=== PATIENT | male | born 1960 | race Caucasian/White ===

== ENCOUNTER 2018-03-25 19:16 | Inpatient (IN) | END 2018-03-28 14:35 | disposition home or self-care (01) | DRG 69 ==

== ENCOUNTER 2018-11-05 02:31 | Inpatient (IN) | payer MEDICAID, OTHER ==
[2018-11-05] VITALS (48 sets, daily range): BP systolic 93–192; BP diastolic 65–123; PULSE 64–123; RESP 16–27; Ht 157.5 cm; Wt 56.8 kg
[~2018-11-05] VITALS: Ht 157.5 cm; Wt 56.8 kg
[~2018-11-05 02:31] MED LIST: ATOR-2 PO; DOXA4TAB2 PO; ETOMIDATE 20 MG INJ ONE; LINA5TAB PO; ROCURONIUM 50 MG INJ ONE
[2018-11-05] MEDS ORDERED: niCARdipine-NS 0.1MG/ML DRIP 200 ML IV STA (02:47)
[2018-11-05] MEDS ORDERED: SOD CHLORIDE 0.9% 500 ML IV STA (02:47)
--- NOTE | 2018-11-05 02:56 | ERD ---
ER Documentation Chief Complaint Chief Complaint bib family, for n/v and patient has weakness, hx of cva HPI This is a 58-year-old male who has not had a prior stroke in February 2018 affecting his left hand. The patient works as a burglar alarm mechanic and he was in the shop with 2 other guys, they had been drinking alcohol, he drinks alcohol daily,. The friend said the patient suddenly fell to the ground and was complaining of weakness. He did not lose consciousness or have a seizure. His friends helped him to the bathroom for him to have a bowel movement. He states is been constipated for the past 8 days. He says that he has some visual disturbance in his left eye, with some difficulty talking, and his left side is paralyzed. He also complains of a diffuse headache. 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 Allergies Allergies: Coded Allergies: No Known Allergy (Unverified , 11/05/18) FmHx Family History: No coronary disease Physical Exam Vitals Vital Signs Date Temp Pulse Resp B/P (MAP) Pulse Ox O2 O2 Flow FiO2 Time Delivery Rate 11/05/18 98.1 91 19 262/154 96 02:42 (190) Physical Exam Const: Well-developed, well-nourished Head: Atraumatic, normocephalic Eyes: Normal Conjunctiva, PERRLA, EOMI, normal sclera, no nystagmus ENT: Normal External Ears, Nose and Mouth, moist mucus membranes. Neck: Full range of motion. No meningismus, no lymphadenopathy. Resp: Clear to auscultation bilaterally, no wheezing, rhonchi, rales Cardio: Regular rate and rhythm, no murmurs, S1 S2 present Abd: Soft, non tender x 4, non distended. Normal bowel sounds, no guarding or rebound, no pulsitile abdominal masses or bruits Skin: No petechiae or rashes, no ecchymosis , no maculopapular rash Back: No midline or flank tenderness Ext: No cyanosis, or edema, FROM x 4, normal inspection, neurovascularly intact x 4 Neur: [Awake and alert, right-sided strength is 5 out of 5, the left lower extremity has strength of 0 out of 5, the left upper extremity strength is a 1-2 out of 5 sensation intact x 4, Psych: Normal Mood and Affect Result Diagram: 11/05/18 0250 11/05/18 0250 Results 24 hrs Laboratory Tests Test 11/05/18 02:50 White Blood Count 6.8 10^3/ul Red Blood Count 3.79 10^6/ul Hemoglobin 12.4 g/dl Hematocrit 35.0 % Mean Corpuscular Volume 92.3 fl Mean Corpuscular Hemoglobin 32.7 pg Mean Corpuscular Hemoglobin Concent 35.4 g/dl Red Cell Distribution Width 12.7 % Platelet Count 222 10^3/UL Mean Platelet Volume 10.4 fl Immature Granulocytes % 0.100 % Neutrophils % 49.4 % Lymphocytes % 36.1 % Monocytes % 6.6 % Eosinophils % 6.3 % Basophils % 1.5 % Nucleated Red Blood Cells % 0.0 /100WBC Immature Granulocytes # 0.010 10^3/ul Neutrophils # 3.4 10^3/ul Lymphocytes # 2.5 10^3/ul Monocytes # 0.5 10^3/ul Eosinophils # 0.4 10^3/ul Basophils # 0.1 10^3/ul Nucleated Red Blood Cells # 0.0 10^3/ul Prothrombin Time 11.9 Sec Prothrombin Time Ratio 0.9 INR International Normalized Ratio 0.87 Activated Partial Thromboplast Time 27.9 Sec Sodium Level 140 mmol/L Potassium Level 3.7 mmol/L Chloride Level 106 mmol/L Carbon Dioxide Level 25 mmol/L Anion Gap 9 Blood Urea Nitrogen 37 mg/dl Creatinine 2.91 mg/dl Est Glomerular Filtrat Rate mL/min 22 mL/min Glucose Level 208 mg/dl Hemoglobin A1c 7.1 % Calcium Level 9.0 mg/dl Creatine Kinase 290 IU/L Creatine Kinase Index Pending Creatinine Kinase MB (Mass) Pending Troponin I Pending Triglycerides Level 129 mg/dl Cholesterol Level 235 mg/dl LDL Cholesterol, Calculated 126 mg/dl HDL Cholesterol 83 mg/dl Cholesterol/HDL Ratio 2.8 RATIO Ethyl Alcohol Level < 10.0 mg/dl Current Medications Medications Dose Sig/Janice Start Time Status Last (Trade) Ordered Route PRN Stop Time Admin Dose Reason Admin Sodium 500 ml @ Q1H STAT 11/05/18 Chloride 500 mls/hr IV 02:47 11/05/18 03:46 Nicardipine 200 ml @ ONCE STAT 11/05/18 HCl 50 mls/hr IV 02:47 11/05/18 06:46 Ondansetron 4 mg ONCE ONCE 11/05/18 DC HCl (Zofran IV 03:10 Inj) 11/05/18 03:11 Sodium 100 ml @ ud STK-MED 11/05/18 DC 11/05/18 Chloride ONCE .ROUTE 03: 03:21 11/05/18 03:20 Iohexol 150 ml STK-MED 11/05/18 DC 11/05/18 (Omnipaque ONCE .ROUTE 03: 03:21 300mg/ ml) 11/05/18 03:20 Procedures/MDM Radiologist called me and he has a right thalamic bleed with extension into the intraventricular space that is 3.1 x 3.8 x 3.0 cm. There is early hydrocephalus. No herniation, there is a few millimeters of shift. When the patient returned from CAT scan his mental status was worse and he was having some vomiting. I discussed the case with the family and I told him I was going to intubate him. Endotracheal Intubation by me: Pre assessment performed. See preceding note for details. Pre-oxygenation performed with 100% oxygen RSI: Performed w/o complication or hypoxic events. Medications as ordered. Blade: MAC for ET Tube: 7.5 cm Depth: 22 cm at the lip Intubation confirmed by colorimetric CO2, equal breath sounds, quiet over the stomach. 0330 Spoke with , who reviewed the CT scan he is going to come in place a ventriculostomy shunt Critical Care Time: 40 minutes Treatments/Evaluations: Close monitoring and treatment of unstable vital signs, cardiorespiratory, and neurologic status, while maintaining tight balance of fluid, respiratory, and cardiac interventions. This time includes discussing the case with the patient and the patient's family. This time does not include all procedures stated elsewhere in this record. This time also includes reviewing old records, labs and radiological studies. This time includes examining and re-examining the patient. Additionally, this time also includes arranging care with admitting and consulting physicians. Departure Diagnosis: Primary Impression: Intracranial hemorrhage Additional Impression: Hypertensive crisis Condition: Stable APOLINAR ROJAS DO November 05, 2018 02:56
[2018-11-05] MEDS ORDERED: ONDANSETRON 4 MG INJ IV ONE (03:10)
[2018-11-05] MEDS ORDERED: SOD CHLORIDE 0.9% 100 ML ONE (03:19)
[2018-11-05] MEDS ORDERED: IOHEXOL 300MG/ML 150 ML BTL ONE (03:19)
[2018-11-05] MEDS ORDERED: SOD CHLORIDE 0.9% 1,000 ML IV SCH (03:48)
[2018-11-05] MEDS ORDERED: ACETAMINOPHEN 325 MG TAB PO PRN (04:00)
[2018-11-05] MEDS ORDERED: ONDANSETRON 4 MG INJ IV PRN ×3 (04:00→12:30)
--- NOTE | 2018-11-05 05:05 | CONS ---
Assessment/Plan Assessment/Plan Assessment/Plan (Daily) Diagnoses: 1) Intracerebral hemorrhage 2) Intraventricular hemorrhage 3) Obstructive hydrocephalus 4) Brain herniation 58 year old male with hypertensive ICH/IVH and a massive bleed. It is unlikely h milvia will recover from this, but given his hydrocephalus and young age, I elected to place a ventriculostomy emergently. Please see dictated procedure note. These findings were discussed in detail with the patient's family, who expressed understanding. Plan - Admit ICU - Keep EVD at 5 cm H20 - Ancef while drain in place - SBP 120-160 - HOB 30 degrees Consultation Date/Type/Reason Admit Date/Time Date of Consultation: November 05, 2018 Type of Consult Neurosurgery Reason for Consultation Intracerebral hemorrhage, Intraventricular hemorrhage, Obstructive hydrocephalus Date/Time of Note DATE: 11/05/18 TIME: 04:55 Hx of Present Illness Mr. Danielle is a 58 year old male with history of HTN who came into the ED with assistance and was found to lose consciousness in the waiting room. He was brought back and had an emergent intubation and CT of the head, which revealed a 5 cm thalamic hemorrhage with intraventricular hemorrhage and hydrocephalus. He is non-responsive. Past Medical History Medications Current Medications Nicardipine HCl 200 ml @ 50 mls/hr ONCE STAT IV Last administered on 04/16at 03:15; Admin Dose 50 MLS/HR; Start 11/05/18 at 02:47; Stop 11/05/18 at 06:46 Sodium Chloride 1,000 ml @ 80 mls/hr [id number] IV Last administered on 11/05/18at 03:30; Admin Dose 80 MLS/HR; Start 11/05/18 at 03:48; Stop 11/05/18 at 16:17 Ondansetron HCl (Zofran Inj) 4 mg BRIDGE ORDER PRN IV NAUSEA/VOMITING; Start 11/05/18 at 04:00; Stop 11/06/18 at 03:59 Acetaminophen (Tylenol Tab) 650 mg ER BRIDGE PRN PO .MILD PAIN 1-3 OR TEMP; Start 11/05/18 at 04:00; Stop 11/06/18 at 03:59 Ondansetron HCl (Zofran Inj) 4 mg Q6H PRN IV NAUSEA AND/OR VOMITING; Start 11/05/18 at 05:00; Status UNV Morphine Sulfate (morphine) 2 mg Q4H PRN IV PAIN LEVEL 7-10; Start 11/05/18 at 05:00; Status UNV Pantoprazole (Protonix Iv) 40 mg DAILY@06 IV ; Start 11/05/18 at 06:00; Status UNV Allergies: Coded Allergies: No Known Allergy (Unverified , 11/05/18) Social History Smoking Status: Current every day smoker Exam/Review of Systems Exam Vitals Vital Signs Date Temp Pulse Resp B/P (MAP) Pulse Ox O2 O2 Flow FiO2 Time Delivery Rate 11/05/18 102 16 165/95 100 Mechanical 03:58 (118) Ventilator 11/05/18 98.1 03:30 11/05/18 15.0 03:21 Exam Intubated, non-sedated Left pupil fixed/dilated, right pupil 3 minimally reactive No movement Results Result Diagram: 11/05/18 0250 11/05/18 0250 Results 24hrs Laboratory Tests Test 11/05/18 02:50 White Blood Count 6.8 Red Blood Count 3.79 L Hemoglobin 12.4 L Hematocrit 35.0 L Mean Corpuscular Volume 92.3 Mean Corpuscular Hemoglobin 32.7 Mean Corpuscular Hemoglobin Concent 35.4 Red Cell Distribution Width 12.7 Platelet Count 222 Mean Platelet Volume 10.4 Immature Granulocytes % 0.100 Neutrophils % 49.4 Lymphocytes % 36.1 Monocytes % 6.6 Eosinophils % 6.3 Basophils % 1.5 Nucleated Red Blood Cells % 0.0 Immature Granulocytes # 0.010 Neutrophils # 3.4 Lymphocytes # 2.5 Monocytes # 0.5 Eosinophils # 0.4 Basophils # 0.1 Nucleated Red Blood Cells # 0.0 Prothrombin Time 11.9 Prothrombin Time Ratio 0.9 INR International Normalized Ratio 0.87 Activated Partial Thromboplast Time 27.9 Sodium Level 140 Potassium Level 3.7 Chloride Level 106 Carbon Dioxide Level 25 Anion Gap 9 Blood Urea Nitrogen 37 H Creatinine 2.91 H Est Glomerular Filtrat Rate mL/min 22 L Glucose Level 208 Hemoglobin A1c 7.1 H Calcium Level 9.0 Creatine Kinase 290 H Creatine Kinase Index 1.9 Creatinine Kinase MB (Mass) 5.53 H Troponin I 0.079 Triglycerides Level 129 Cholesterol Level 235 H LDL Cholesterol, Calculated 126 HDL Cholesterol 83 H Cholesterol/HDL Ratio 2.8 Ethyl Alcohol Level < 10.0 H Imaging Imaging 5cm right thalamic hemorrhage with casted lateral, third and 4th ventricles. CTA revealed no underlying vascular abnormality. Medications Medication Current Medications Nicardipine HCl 200 ml @ 50 mls/hr ONCE STAT IV Last administered on 11/05/18at 03:15; Admin Dose 50 MLS/HR; Start 11/05/18 at 02:47; Stop 11/05/18 at 06:46 Sodium Chloride 1,000 ml @ 80 mls/hr [id number] IV Last administered on 11/05/18at 03:30; Admin Dose 80 MLS/HR; Start 11/05/18 at 03:48; Stop 11/05/18 at 16:17 Ondansetron HCl (Zofran Inj) 4 mg BRIDGE ORDER PRN IV NAUSEA/VOMITING; Start 04/16 at 04:00; Stop 11/06/18 at 03:59 Acetaminophen (Tylenol Tab) 650 mg ER BRIDGE PRN PO .MILD PAIN 1-3 OR TEMP; Start 11/05/18 at 04:00; Stop 11/06/18 at 03:59 Ondansetron HCl (Zofran Inj) 4 mg Q6H PRN IV NAUSEA AND/OR VOMITING; Start 11/05/18 at 05:00; Status UNV Morphine Sulfate (morphine) 2 mg Q4H PRN IV PAIN LEVEL 7-10; Start 11/05/18 at 05:00; Status UNV Pantoprazole (Protonix Iv) 40 mg DAILY@06 IV ; Start 11/05/18 at 06:00; Status UNV LATANYA CONNELL MD November 05, 2018 05:05
--- NOTE | 2018-11-05 05:14 | OPR ---
Date/Time of Note Date/Time of Note DATE: 11/05/18 TIME: 05:05 Operative Report Procedure Date: November 05, 2018 Preoperative Diagnosis 1) Hypertensive intracerebral hemorrhage 2) Intraventricular hemorrhage 3) Obstructive hydrocephalus 4) Brain Herniation Postoperative Diagnosis 1) Hypertensive intracerebral hemorrhage 2) Intraventricular hemorrhage 3) Obstructive hydrocephalus 4) Brain Herniation Operation/Procedure Performed Left frontal ventriculostomy placement (twist drill) Surgeon Vladimir Connell MD Screw Machine Operator None Anesthesia Type: other (None) Estimated Blood Loss: minimal Transfusion none Specimen None Grafts/Implants none Tubes/Drains Left frontal ventriculostomy Complications none Pt Condition Post Procedure: critical Disposition: other (ICU) Indications Mr. Danielle ia a 58 year-old male with a massive hypertensive thalamic intracerebral hemorrhage. He had intraventricular hemorrhage with casting of the right lateral ventricle, the third ventricle and the fourth ventricle. This ca used mild obstructive hydrocephalus and brain herniation. His clinical exam was poor, however he was indicated for a ventriculostomy placement. Due to casted IVH involving the right side, I elected to place this on the left. His family was consented as to the risks/benefits of the procedure and elected to proceed. Procedure Description The area of left Mel's point was shaved and prepped and draped in the usual sterile fashion. A 1.5 cm incision was made using a #15 blade and carried down to the periosteum. A self-retaining retractor was placed. The twist drill was used to access the intracranial space. The dura was pierced with a needle. The ventriculostomy catheter was placed with one pass to a depth of 5 cm at the brain surface and was soft passed 2 more cm without difficulty. Bloody cerebrospinal fluid under moderate pressure was noted. This was tunneled > 4 cm from the incision and was secured at the skin using a 4-0 nylon stitch. The incision was closed with darby and the drain was secured with darby. A sterile dressing was applied and the drain was connected to the Vigil bag at a level of 5cm H20. There were no complaints. VLADIMIR CONNELL MD November 05, 2018 05:14
[2018-11-05] MEDS ORDERED: FENTAnyl 50 MCG/ML VIAL IV ONE (05:30)
[2018-11-05] MEDS ORDERED: FENTAnyl (DRIP) 1000 mcg/100mL 100 ML IV ONE (05:30)
[2018-11-05] MEDS ORDERED: CEFAZOLIN 1 GM/50 ML (PMX) 50 ML IVPB ONE (05:30)
[2018-11-05] MEDS ORDERED: PANTOPRAZOLE 40 MG INJ IV SCH (06:00)
[2018-11-05] MEDS ORDERED: ALTEPLASE (CATHFLO) 2 MG INJ CATHETER ONE (06:00)
[2018-11-05] MEDS ORDERED: LIDOCAINE 1% (MPF) 5 ML VIAL SC ONE (06:00)
--- NOTE | 2018-11-05 07:02 | HP ---
Date/Time of Note Date/Time of Note DATE: 11/05/18 TIME: 06:50 Assessment/Plan VTE Prophylaxis SCD applied (from Nsg): Yes Pharmacological prophylaxis: NA/contraindicated Pharm contraindication: bleeding Lines/Catheters IV Catheter Type (from Nrsg): Saline Lock Assessment/Plan Assessment/Plan 1. Massive intraparenchymal hemorrhage with obstructive hydrocephalus and brain herniation, secondary to hypertensive crisis: -Status post placement of a left APPLICATIONS INSTRUCTOR shunt -ICU monitoring -Goal SBP 120-150 -Ancef -Neurosurgery on board -Patient with likely poor prognosis 2. Hypertensive emergency: Patient presented with a blood pressure of 262/154: See #1 3. History of CVA with left-sided deficit: Again patient presented with acutely worsening left-sided weakness and vomiting. See #1 4. Vent dependent: Respiratory to manage 5. History of cocaine abuse Result Diagram: 11/05/18 0250 11/05/18 0250 Results 24hrs Laboratory Tests Test 11/05/18 02:50 11/05/18 05:05 White Blood Count 6.8 Red Blood Count 3.79 L Hemoglobin 12.4 L Hematocrit 35.0 L Mean Corpuscular Volume 92.3 Mean Corpuscular Hemoglobin 32.7 Mean Corpuscular Hemoglobin Concent 35.4 Red Cell Distribution Width 12.7 Platelet Count 222 Mean Platelet Volume 10.4 Immature Granulocytes % 0.100 Neutrophils % 49.4 Lymphocytes % 36.1 Monocytes % 6.6 Eosinophils % 6.3 Basophils % 1.5 Nucleated Red Blood Cells % 0.0 Immature Granulocytes # 0.010 Neutrophils # 3.4 Lymphocytes # 2.5 Monocytes # 0.5 Eosinophils # 0.4 Basophils # 0.1 Nucleated Red Blood Cells # 0.0 Prothrombin Time 11.9 Prothrombin Time Ratio 0.9 INR International Normalized Ratio 0.87 Activated Partial Thromboplast Time 27.9 Sodium Level 140 Potassium Level 3.7 Chloride Level 106 Carbon Dioxide Level 25 Anion Gap 9 Blood Urea Nitrogen 37 H Creatinine 2.91 H Est Glomerular Filtrat Rate mL/min 22 L Glucose Level 208 Hemoglobin A1c 7.1 H Calcium Level 9.0 Creatine Kinase 290 H Creatine Kinase Index 1.9 Creatinine Kinase MB (Mass) 5.53 H Troponin I 0.079 Triglycerides Level 129 Cholesterol Level 235 H LDL Cholesterol, Calculated 126 HDL Cholesterol 83 H Cholesterol/HDL Ratio 2.8 Ethyl Alcohol Level < 10.0 H Blood Gas Specimen Source Blood arterial Arterial Blood Date Drawn 11/05/2018 5:10:42 AM Arterial Blood pH (Temp corrected) 7.331 L Arterial Blood pCO2 (Temp correct) 43.9 Arterial Blood pO2 (Temp corrected) 192.9 H Arterial Blood HCO3 22.7 Arterial Blood Base Excess -3.2 L Arterial Blood Oxygen Saturation 98.8 H Mati Test ACCEPTAB Arterial Blood Gas Puncture Site Right Radial Arterial Blood Carboxyhemoglobin 0.7 Arterial Blood Methemoglobin 0.3 Blood Gas A-a O2 Differential 476.2 H Oxyhemoglobin Percent 97.8 Blood Gas Temperature 37.0 Blood Gas Respiration Rate 16.0 Blood Gas Actual Respiration Rate 22 Blood Gas Modality VENT - AC FiO2 100.0 Blood Gas Tidal Volume 500.0 Blood Gas Low PEEP Setting 5.0 Blood Gas Notified Whom AA Blood Gas Notified Time 11/05/2018 5:22:52 AM HPI/ROS Admit Date/Time Admit Date/Time Hx of Present Illness This is a 58-year-old male with a history of hypertension, CVA with left-sided deficit, cocaine abuse who was brought to the ER for worsening left-sided weakness and intractable vomiting. Patient had an acute onset significantly worsening of left-sided weakness and vomiting. When he presented to the ER, blood pressure was 262/154. Head CT shows intracerebral and intraventricular hemorrhage, brain herniation and obstructive hydrocephalus. Patient was taken to the OR and now is status post placement of a left APPLICATIONS INSTRUCTOR shunt. Of note in the ER, CT Angio of the head and neck showed 50 to 70% left vertebral artery stenosis and a bilateral cavernous and supraclinoid internal carotid with moderate to severe flow-limiting stenosis. PMH/Family/Social Past Medical History Medical History: other (See HPI) Medications Current Medications Sodium Chloride 1,000 ml @ 80 mls/hr [id number] IV Last administered on 11/05/18at 03:30; Admin Dose 80 MLS/HR; Start 11/05/18 at 03:48; Stop 11/05/18 at 16:17 Ondansetron HCl (Zofran Inj) 4 mg BRIDGE ORDER PRN IV NAUSEA/VOMITING; Start 11/05/18 at 04:00; Stop 11/06/18 at 03:59 Acetaminophen (Tylenol Tab) 650 mg ER BRIDGE PRN PO .MILD PAIN 1-3 OR TEMP; Start 11/05/18 at 04:00; Stop 11/06/18 at 03:59 Ondansetron HCl (Zofran Inj) 4 mg Q6H PRN IV NAUSEA AND/OR VOMITING; Start 11/05/18 at 05:00 Morphine Sulfate (morphine) 2 mg Q4H PRN IV PAIN LEVEL 7-10; Start 11/05/18 at 05:00 Famotidine (Pepcid Iv) 20 mg DAILY IV ; Start 11/05/18 at 09:00 Fentanyl 100 ml @ 2.5 mls/hr TITRATE ONCE IV Last administered on 11/05/18at 05:51; Admin Dose 2.5 MLS/HR; Start 11/05/18 at 05:30; Stop 11/06/18 at 21:29 Coded Allergies: No Known Allergy (Unverified , 11/05/18) Past Surgical History Past Surgical Hx: other (See HPI) Family History Significant Family History: no pertinent family hx Social History Alcohol Use: other Smoking Status: Current every day smoker Drug Use: cocaine Exam/Review of Systems Vital Signs Vitals Vital Signs Date Temp Pulse Resp B/P (MAP) Pulse Ox O2 O2 Flow FiO2 Time Delivery Rate 11/05/18 65 20 100/54 97 Mechanical 06:02 (69) Ventilator 11/05/18 70 05:28 11/05/18 98.1 03:30 11/05/18 15.0 03:21 Exam Constitutional: other (Intubated, patient restless) Respiratory: clear to auscultation, normal air movement Cardiovascular: regular rate and rhythm, nl pulses Gastrointestinal: soft Extremities: normal pulses MARCIANO CANAS MD November 05, 2018 07:01
[2018-11-05] MEDS ORDERED: MIDAZOLAM (DRIP) 50 mg/50 mL 50 ML IV SCH (08:30)
--- NOTE | 2018-11-05 09:18 | CONS ---
Assessment/Plan Assessment/Plan Assessment/Plan (Daily) Status post massive intracerebral hemorrhage Shunt has been placed by neurosurgery Presumably hypertensive crisis Presumably secondary to illicit drug use however patient's drug screen is negative however he has a history of cocaine and other illicit drug use Drug screen may be unreliable if patient was smoking or shooting drugs as compared to snorting. Half-life of cocaine and crystal methamphetamines approximately 1 week metabolites of snorting crystal methamphetamine may be longer. Hypertensive crisis On nicardipine drip Patient sedated at this time Prognosis unknown at this time. I have brought to daughter is up-to-date with information that we do know I did not give them a prognosis. Consultation Date/Type/Reason Admit Date/Time Date/Time of Note DATE: 11/05/18 TIME: 09:14 Hx of Present Illness Chart removed patient examined patient is status post massive intraparenchymal hemorrhage with obstructive hydrocephalus and brain herniation secondary to hypertensive crisis. Patient was seen by neurosurgery in the left frontal ventriculostomy was placed. We do not have much past medical history 2 d aughters at the bedside they seem resigned to the fact that something catastrophic with happen to their father based on his lifestyle. It is known the patient was homeless past medical history of drug abuse. The 2 daughters make all the decisions on his behalf is from patient but there is one other sibling involved. There is no advanced healthcare or polst form . Unable to obtain she is intubated and sedated Past Medical History Medical History: other (See HPI) Medications Current Medications Sodium Chloride 1,000 ml @ 80 mls/hr [id number] IV Last administered on 11/05/18at 03:30; Admin Dose 80 MLS/HR; Start 11/05/18 at 03:48; Stop 11/05/18 at 16:17 Ondansetron HCl (Zofran Inj) 4 mg BRIDGE ORDER PRN IV NAUSEA/VOMITING; Start 11/05/18 at 04:00; Stop 11/06/18 at 03:59 Acetaminophen (Tylenol Tab) 650 mg ER BRIDGE PRN PO .MILD PAIN 1-3 OR TEMP; Start 11/05/18 at 04:00; Stop 11/06/18 at 03:59 Ondansetron HCl (Zofran Inj) 4 mg Q6H PRN IV NAUSEA AND/OR VOMITING; Start 11/05/18 at 05:00 Morphine Sulfate (morphine) 2 mg Q4H PRN IV PAIN LEVEL 7-10; Start 11/05/18 at 05:00 Famotidine (Pepcid Iv) 20 mg DAILY IV ; Start 11/05/18 at 09:00 Fentanyl 100 ml @ 2.5 mls/hr TITRATE ONCE IV Last administered on 11/05/18at 05:51; Admin Dose 2.5 MLS/HR; Start 11/05/18 at 05:30; Stop 11/06/18 at 21:29 Midazolam HCl 50 ml @ 1 mls/hr TITRATE IV ; Start 11/05/18 at 08:30 Allergies: Coded Allergies: No Known Allergy (Unverified , 11/05/18) Past Surgical History Past Surgical Hx: other (See HPI) Social History Alcohol Use: other Smoking Status: Current every day smoker Drug Use: cocaine Exam/Review of Systems Exam Vitals Vital Signs Date Temp Pulse Resp B/P (MAP) Pulse Ox O2 O2 Flow FiO2 Time Delivery Rate 11/05/18 65 08:00 11/05/18 16 96 50 07:55 11/05/18 137/82 Mechanical 07:00 (100) Ventilator 11/05/18 98.1 03:30 11/05/18 15.0 03:21 Constitutional: other (Sedated nonresponsive,) Head: other (Left lateral shunt) Eyes: other (Left eye trauma versus cataract white nontransparent cornea right eye pupils equally round and reactive to light) Neck: supple, non-tender Respiratory: clear to auscultation, normal air movement Cardiovascular: regular rate and rhythm, nl pulses Extremities: other; No normal pulses, No calf tenderness, No cyanosis, No clubbing, No edema, No pitting pedal edema, No palpable cord, No tenderness Results Result Diagram: 11/05/18 0250 11/05/18 0250 Results 24hrs Laboratory Tests Test 11/05/18 02:50 11/05/18 05:05 White Blood Count 6.8 Red Blood Count 3.79 L Hemoglobin 12.4 L Hematocrit 35.0 L Mean Corpuscular Volume 92.3 Mean Corpuscular Hemoglobin 32.7 Mean Corpuscular Hemoglobin Concent 35.4 Red Cell Distribution Width 12.7 Platelet Count 222 Mean Platelet Volume 10.4 Immature Granulocytes % 0.100 Neutrophils % 49.4 Lymphocytes % 36.1 Monocytes % 6.6 Eosinophils % 6.3 Basophils % 1.5 Nucleated Red Blood Cells % 0.0 Immature Granulocytes # 0.010 Neutrophils # 3.4 Lymphocytes # 2.5 Monocytes # 0.5 Eosinophils # 0.4 Basophils # 0.1 Nucleated Red Blood Cells # 0.0 Prothrombin Time 11.9 Prothrombin Time Ratio 0.9 INR International Normalized Ratio 0.87 Activated Partial Thromboplast Time 27.9 Sodium Level 140 Potassium Level 3.7 Chloride Level 106 Carbon Dioxide Level 25 Anion Gap 9 Blood Urea Nitrogen 37 H Creatinine 2.91 H Est Glomerular Filtrat Rate mL/min 22 L Glucose Level 208 Hemoglobin A1c 7.1 H Calcium Level 9.0 Creatine Kinase 290 H Creatine Kinase Index 1.9 Creatinine Kinase MB (Mass) 5.53 H Troponin I 0.079 Triglycerides Level 129 Cholesterol Level 235 H LDL Cholesterol, Calculated 126 HDL Cholesterol 83 H Cholesterol/HDL Ratio 2.8 Ethyl Alcohol Level < 10.0 H Blood Gas Specimen Source Blood arterial Arterial Blood Date Drawn 11/05/2018 5:10:42 AM Arterial Blood pH (Temp corrected) 7.331 L Arterial Blood pCO2 (Temp correct) 43.9 Arterial Blood pO2 (Temp corrected) 192.9 H Arterial Blood HCO3 22.7 Arterial Blood Base Excess -3.2 L Arterial Blood Oxygen Saturation 98.8 H Mati Test ACCEPTAB Arterial Blood Gas Puncture Site Right Radial Arterial Blood Carboxyhemoglobin 0.7 Arterial Blood Methemoglobin 0.3 Blood Gas A-a O2 Differential 476.2 H Oxyhemoglobin Percent 97.8 Blood Gas Temperature 37.0 Blood Gas Respiration Rate 16.0 Blood Gas Actual Respiration Rate 22 Blood Gas Modality VENT - AC FiO2 100.0 Blood Gas Tidal Volume 500.0 Blood Gas Low PEEP Setting 5.0 Blood Gas Notified Whom AA Blood Gas Notified Time 11/05/2018 5:22:52 AM Medications Medication Current Medications Sodium Chloride 1,000 ml @ 80 mls/hr [id number] IV Last administered on 11/05/18at 03:30; Admin Dose 80 MLS/HR; Start 11/05/18 at 03:48; Stop 11/05/18 at 16:17 Ondansetron HCl (Zofran Inj) 4 mg BRIDGE ORDER PRN IV NAUSEA/VOMITING; Start 11/05/18 at 04:00; Stop 11/06/18 at 03:59 Acetaminophen (Tylenol Tab) 650 mg ER BRIDGE PRN PO .MILD PAIN 1-3 OR TEMP; Start 11/05/18 at 04:00; Stop 11/06/18 at 03:59 Ondansetron HCl (Zofran Inj) 4 mg Q6H PRN IV NAUSEA AND/OR VOMITING; Start 11/05/18 at 05:00 Morphine Sulfate (morphine) 2 mg Q4H PRN IV PAIN LEVEL 7-10; Start 11/05/18 at 05:00 Famotidine (Pepcid Iv) 20 mg DAILY IV ; Start 11/05/18 at 09:00 Fentanyl 100 ml @ 2.5 mls/hr TITRATE ONCE IV Last administered on 11/05/18at 05:51; Admin Dose 2.5 MLS/HR; Start 11/05/18 at 05:30; Stop 11/06/18 at 21:29 Midazolam HCl 50 ml @ 1 mls/hr TITRATE IV ; Start 11/05/18 at 08:30 SHIRLEY WATERS November 05, 2018 09:18
[2018-11-05] MEDS: FAMOTIDINE 20 MG INJ IV SCH (09:47)
[2018-11-05] MEDS ORDERED: niCARdipine-NS 0.1MG/ML DRIP 200 ML IV SCH (11:00)
--- NOTE | 2018-11-05 12:02 | PN ---
Date/Time of Note Date/Time of Note DATE: 11/05/18 TIME: 12:00 Assessment/Plan VTE Prophylaxis SCD applied (from Nsg): Yes SCD contraindicated: low risk/ambulating Pharmacological prophylaxis: NA/contraindicated Pharm contraindication: bleeding Lines/Catheters IV Catheter Type (from Nrsg): Saline Lock Assessment/Plan Hospital Course Assessment plan 1. Acute intracranial/intervertebral intraparenchymal hemorrhage, poor prognosis continue supportive care status post LIME SLAKER shunt 2. Hypertensive emergency 3. Cocaine abuse 4. Tobacco abuse 5. Medication nonadherence 6. Acute respiratory failure hypoxic continue vent 7. Failure to thrive 8. Diabetes 10. Acute renal failure? CKD stage III-IV 11. Dyslipidemia not at goal 12. Struct of hydrocephalus 13. BPH history of TIA S: Events noted patient remains vent dependent with elevated blood pressure. Family at bedside updated. Seizures. O: Sinus with elevated blood pressure Physical exam No pallor droop. Sluggish right pupil may be 3 mm. Left with cataract? Regular no murmur rub gallop Clear Benign no abdominal bruits Babinski's on right and left and neutral Result Diagram: 11/05/18 0250 11/05/18 0250 Results 24hrs Laboratory Tests Test 11/05/18 02:50 11/05/18 05:05 11/05/18 10:00 White Blood Count 6.8 Red Blood Count 3.79 L Hemoglobin 12.4 L Hematocrit 35.0 L Mean Corpuscular Volume 92.3 Mean Corpuscular Hemoglobin 32.7 Mean Corpuscular 35.4 Hemoglobin Concent Red Cell Distribution Width 12.7 Platelet Count 222 Mean Platelet Volume 10.4 Immature Granulocytes % 0.100 Neutrophils % 49.4 Lymphocytes % 36.1 Monocytes % 6.6 Eosinophils % 6.3 Basophils % 1.5 Nucleated Red Blood Cells % 0.0 Immature Granulocytes # 0.010 Neutrophils # 3.4 Lymphocytes # 2.5 Monocytes # 0.5 Eosinophils # 0.4 Basophils # 0.1 Nucleated Red Blood Cells # 0.0 Prothrombin Time 11.9 Prothrombin Time Ratio 0.9 INR International 0.87 Normalized Ratio Activated 27.9 Partial Thromboplast Time Sodium Level 140 Potassium Level 3.7 Chloride Level 106 Carbon Dioxide Level 25 Anion Gap 9 Blood Urea Nitrogen 37 H Creatinine 2.91 H Est Glomerular Filtrat 22 L Rate mL/min Glucose Level 208 Hemoglobin A1c 7.1 H Calcium Level 9.0 Creatine Kinase 290 H Creatine Kinase Index 1.9 Creatinine Kinase MB (Mass) 5.53 H Troponin I 0.079 Triglycerides Level 129 Cholesterol Level 235 H LDL Cholesterol, Calculated 126 HDL Cholesterol 83 H Cholesterol/HDL Ratio 2.8 Ethyl Alcohol Level < 10.0 H Blood Gas Specimen Source Blood arterial Arterial Blood Date Drawn 11/05/2018 5:10:42 AM Arterial Blood pH 7.331 L (Temp corrected) Arterial Blood pCO2 43.9 (Temp correct) Arterial Blood pO2 192.9 H (Temp corrected) Arterial Blood HCO3 22.7 Arterial Blood Base Excess -3.2 L Arterial Blood 98.8 H Oxygen Saturation Mati Test ACCEPTAB Arterial Blood Gas Right Radial Puncture Site Arterial 0.7 Blood Carboxyhemoglobin Arterial Blood Methemoglobin 0.3 Blood Gas A-a O2 476.2 H Differential Oxyhemoglobin Percent 97.8 Blood Gas Temperature 37.0 Blood Gas Respiration Rate 16.0 Blood Gas Actual 22 Respiration Rate Blood Gas Modality VENT - AC FiO2 100.0 Blood Gas Tidal Volume 500.0 Blood Gas Low PEEP Setting 5.0 Blood Gas Notified Whom AA Blood Gas Notified Time 11/05/2018 5:22:52 AM Urine Color YELLOW Urine Clarity CLEAR Urine pH 5.0 Urine Specific [place] 1.042 H Urine Ketones TRACE A Urine Nitrite NEGATIVE Urine Bilirubin NEGATIVE Urine Urobilinogen NEGATIVE Urine Leukocyte Esterase NEGATIVE Urine Microscopic RBC 10 H Urine Microscopic WBC 2 Urine Hemoglobin 2+ H Urine Glucose 2+ H Urine Total Protein 2+ H Urine Opiates Screen Negative Urine Barbiturates Negative Urine Amphetamines Screen Negative Urine Benzodiazepines Screen Negative Urine Cocaine Screen Positive Urine Cannabinoids Negative Exam/Review of Systems Exam Vitals Vital Signs Date Temp Pulse Resp B/P (MAP) Pulse Ox O2 O2 Flow FiO2 Time Delivery Rate 11/05/18 83 16 95 50 11:39 11/05/18 140/92 11:30 (108) 11/05/18 Mechanical 11:00 Ventilator 11/05/18 97.5 08:00 11/05/18 15.0 03:21 Results Results 24hrs Laboratory Tests Test 11/05/18 02:50 11/05/18 05:05 11/05/18 10:00 White Blood Count 6.8 Red Blood Count 3.79 L Hemoglobin 12.4 L Hematocrit 35.0 L Mean Corpuscular Volume 92.3 Mean Corpuscular Hemoglobin 32.7 Mean Corpuscular 35.4 Hemoglobin Concent Red Cell Distribution Width 12.7 Platelet Count 222 Mean Platelet Volume 10.4 Immature Granulocytes % 0.100 Neutrophils % 49.4 Lymphocytes % 36.1 Monocytes % 6.6 Eosinophils % 6.3 Basophils % 1.5 Nucleated Red Blood Cells % 0.0 Immature Granulocytes # 0.010 Neutrophils # 3.4 Lymphocytes # 2.5 Monocytes # 0.5 Eosinophils # 0.4 Basophils # 0.1 Nucleated Red Blood Cells # 0.0 Prothrombin Time 11.9 Prothrombin Time Ratio 0.9 INR International 0.87 Normalized Ratio Activated 27.9 Partial Thromboplast Time Sodium Level 140 Potassium Level 3.7 Chloride Level 106 Carbon Dioxide Level 25 Anion Gap 9 Blood Urea Nitrogen 37 H Creatinine 2.91 H Est Glomerular Filtrat 22 L Rate mL/min Glucose Level 208 Hemoglobin A1c 7.1 H Calcium Level 9.0 Creatine Kinase 290 H Creatine Kinase Index 1.9 Creatinine Kinase MB (Mass) 5.53 H Troponin I 0.079 Triglycerides Level 129 Cholesterol Level 235 H LDL Cholesterol, Calculated 126 HDL Cholesterol 83 H Cholesterol/HDL Ratio 2.8 Ethyl Alcohol Level < 10.0 H Blood Gas Specimen Source Blood arterial Arterial Blood Date Drawn 11/05/2018 5:10:42 AM Arterial Blood pH 7.331 L (Temp corrected) Arterial Blood pCO2 43.9 (Temp correct) Arterial Blood pO2 192.9 H (Temp corrected) Arterial Blood HCO3 22.7 Arterial Blood Base Excess -3.2 L Arterial Blood 98.8 H Oxygen Saturation Mati Test ACCEPTAB Arterial Blood Gas Right Radial Puncture Site Arterial 0.7 Blood Carboxyhemoglobin Arterial Blood Methemoglobin 0.3 Blood Gas A-a O2 476.2 H Differential Oxyhemoglobin Percent 97.8 Blood Gas Temperature 37.0 Blood Gas Respiration Rate 16.0 Blood Gas Actual 22 Respiration Rate Blood Gas Modality VENT - AC FiO2 100.0 Blood Gas Tidal Volume 500.0 Blood Gas Low PEEP Setting 5.0 Blood Gas Notified Whom AA Blood Gas Notified Time 11/05/2018 5:22:52 AM Urine Color YELLOW Urine Clarity CLEAR Urine pH 5.0 Urine Specific [place] 1.042 H Urine Ketones TRACE A Urine Nitrite NEGATIVE Urine Bilirubin NEGATIVE Urine Urobilinogen NEGATIVE Urine Leukocyte Esterase NEGATIVE Urine Microscopic RBC 10 H Urine Microscopic WBC 2 Urine Hemoglobin 2+ H Urine Glucose 2+ H Urine Total Protein 2+ H Urine Opiates Screen Negative Urine Barbiturates Negative Urine Amphetamines Screen Negative Urine Benzodiazepines Screen Negative Urine Cocaine Screen Positive Urine Cannabinoids Negative Medications Medication Current Medications Sodium Chloride 1,000 ml @ 80 mls/hr [id number] IV Last administered on 11/05/18at 03:30; Admin Dose 80 MLS/HR; Start 11/05/18 at 03:48; Stop 11/05/18 at 16:17 Ondansetron HCl (Zofran Inj) 4 mg Q6H PRN IV NAUSEA AND/OR VOMITING; Start 11/05/18 at 05:00 Morphine Sulfate (morphine) 2 mg Q4H PRN IV PAIN LEVEL 7-10; Start 11/05/18 at 05:00 Famotidine (Pepcid Iv) 20 mg DAILY IV Last administered on 11/05/18at 09:47; Admin Dose 20 MG; Start 11/05/18 at 09:00 Fentanyl 100 ml @ 2.5 mls/hr TITRATE ONCE IV Last administered on 11/05/18at 05:51; Admin Dose 2.5 MLS/HR; Start 11/05/18 at 05:30; Stop 11/06/18 at 21:29 Midazolam HCl 50 ml @ 1 mls/hr TITRATE IV Last administered on 11/05/18at 09:48; Admin Dose 1 MLS/HR; Start 11/05/18 at 08:30 Nicardipine HCl 200 ml @ 50 mls/hr TITRATE IV Last administered on 11/05/18at 11:18; Admin Dose 50 MLS/HR; Start 11/05/18 at 11:00 JOHN URIBE MD November 05, 2018 12:02
[2018-11-05] MEDS ORDERED: ALBUTEROL 0.083% (NEB) 2.5 MG/3 ML AMP HHN PRN (12:30)
[2018-11-05] MEDS ORDERED: FUROSEMIDE 40 MG INJ IV ONE (12:30)
--- NOTE | 2018-11-05 13:13 | CONS ---
Assessment/Plan Assessment/Plan Assessment/Plan (Daily) 1. acute hemorrhagic stroke , Intracerebral hemorrhage with obstructive hydrocephalus s/p ventriculostomy tube placement on 11/05/18 2. Acute on chronic renal failure 2/2 ATN 2. HTN emergency 4. H/o HTN 5. Possibel CKD III 2/2 HTN nephrosclerosis 6. H/o substance abuse, urine drug screen positive for Cocaine Plan: Continue Current Meds, I will order Urine Na, urine protein/Cr ration, urine eos inophils, CK total, uric acid Renal US to assess for CKD S/p Neurosurgery follow up NIcardipine gtt for BP control and ICH IVF NS at 40 cc/hr Thanks for consultation, I will continue to follow up Consultation Date/Type/Reason Admit Date/Time 11/05/2018 Date of Consultation: November 05, 2018 Type of Consult NEPHROLOGY Reason for Consultation acute renal failure, Hypokalemia , ICH Requesting Provider: EDUARDO ASENCIO Date/Time of Note DATE: 11/05/18 TIME: 13:13 Hx of Present Illness 58 year old male with history of HTN who came into the ED with assistance and was found to lose consciousness in the waiting room. He was brought back and had an emergent intubation and CT of the head, which revealed a 5 cm thalamic hemorrhage with intraventricular hemorrhage and hydrocephalus. He is non-responsive.- s/p Neurosurgery consult and had a Ventriculostomy tube placement, pt admitted to ICU intubated ,Curretly being followed up by Pulmonary and Neurosurgery On labs, Pt is noted to have BUN/Cr 37/2.91- Renal has been consulted for acute on chronic renal failue and fluid management. Pt is currently intubated, non verbal Subjective hx not possible: pt non-verbal Past Medical History Medical History: hypertension, other (substance abuse ) Home Meds Active Scripts Linagliptin (TRADJENTA) 5 Mg Tablet, 5 MG PO QAM for glucose for 30 Days, #30 TAB Prov:QI MÁRQUEZ MD 03/28/18 Doxazosin Mesylate* (Cardura*) 4 Mg Tablet, 4 MG PO HS for 30 Days, #30 TAB For blood pressure control and prostate Prov:QI MÁRQUEZ MD 03/28/18 Atorvastatin* (Atorvastatin*) 80 Mg Tablet, 80 MG PO HS for 30 Days, #30 TAB Prov:QI MÁRQUEZ MD 03/28/18 Medications Current Medications Morphine Sulfate (morphine) 2 mg Q4H PRN IV PAIN LEVEL 7-10; Start 11/05/18 at 05:00 Famotidine (Pepcid Iv) 20 mg DAILY IV Last administered on 11/05/18at 09:47; Admin Dose 20 MG; Start 11/05/18 at 09:00 Fentanyl 100 ml @ 2.5 mls/hr TITRATE ONCE IV Last administered on 11/05/18at 05:51; Admin Dose 2.5 MLS/HR; Start 11/05/18 at 05:30; Stop 11/06/18 at 21:29 Midazolam HCl 50 ml @ 1 mls/hr TITRATE IV Last administered on 11/05/18at 09:48; Admin Dose 1 MLS/HR; Start 11/05/18 at 08:30 Nicardipine HCl 200 ml @ 50 mls/hr TITRATE IV Last administered on 11/05/18at 11:18; Admin Dose 50 MLS/HR; Start 11/05/18 at 11:00 Sodium Chloride 1,000 ml @ 40 mls/hr Q24H IV ; Start 11/05/18 at 12:30 Thiamine HCl (Vitamin B1) 100 mg DAILY NGT ; Start 11/05/18 at 12:30 Labetalol HCl (Normodyne) 100 mg BID NGT ; Start 11/05/18 at 12:30 Nifedipine (Procardia) 20 mg Q6 NGT ; Start 11/05/18 at 12:30 Ondansetron HCl (Zofran Inj) 4 mg Q4H PRN IV NAUSEA AND/OR VOMITING; Start 11/05/18 at 12:30 Albuterol (Proventil 0.083% (Neb)) 1.25 mg Q2H RESP THERAPY PRN HHN WHEEZING AND SOB; Start 11/05/18 at 12:30 Allergies: Coded Allergies: No Known Allergy (Unverified , 03/25/18) Past Surgical History Past Surgical Hx: other (See HPI) Family History Significant Family History: no pertinent family hx Social History Alcohol Use: none Smoking Status: Current every day smoker Drug Use: cocaine Exam/Review of Systems Exam Vitals Vital Signs Date Temp Pulse Resp B/P (MAP) Pulse Ox O2 O2 Flow FiO2 Time Delivery Rate 11/05/18 83 16 95 50 11:39 11/05/18 140/92 11:30 (108) 11/05/18 Mechanical 11:00 Ventilator 11/05/18 97.5 08:00 11/05/18 15.0 03:21 Constitutional: non-verbal ENMT: intubated Neck: supple, non-tender Respiratory: congested cough, crackles/rales, diminished breath sounds Cardiovascular: regular rate and rhythm, nl pulses Gastrointestinal: soft, non-tender Musculoskeletal: muscle weakness, swelling Extremities: normal pulses Neurological: unresponsive, other (intubated on ventilator ) Skin: nl turgor Lymph: nl lymph nodes Results Result Diagram: 11/05/18 0250 11/05/18 0250 Results 24hrs Laboratory Tests Test 11/05/18 02:50 11/05/18 05:05 11/05/18 10:00 White Blood Count 6.8 Red Blood Count 3.79 L Hemoglobin 12.4 L Hematocrit 35.0 L Mean Corpuscular Volume 92.3 Mean Corpuscular Hemoglobin 32.7 Mean Corpuscular 35.4 Hemoglobin Concent Red Cell Distribution Width 12.7 Platelet Count 222 Mean Platelet Volume 10.4 Immature Granulocytes % 0.100 Neutrophils % 49.4 Lymphocytes % 36.1 Monocytes % 6.6 Eosinophils % 6.3 Basophils % 1.5 Nucleated Red Blood Cells % 0.0 Immature Granulocytes # 0.010 Neutrophils # 3.4 Lymphocytes # 2.5 Monocytes # 0.5 Eosinophils # 0.4 Basophils # 0.1 Nucleated Red Blood Cells # 0.0 Prothrombin Time 11.9 Prothrombin Time Ratio 0.9 INR International 0.87 Normalized Ratio Activated 27.9 Partial Thromboplast Time Sodium Level 140 Potassium Level 3.7 Chloride Level 106 Carbon Dioxide Level 25 Anion Gap 9 Blood Urea Nitrogen 37 H Creatinine 2.91 H Est Glomerular Filtrat 22 L Rate mL/min Glucose Level 208 Hemoglobin A1c 7.1 H Calcium Level 9.0 Creatine Kinase 290 H Creatine Kinase Index 1.9 Creatinine Kinase MB (Mass) 5.53 H Troponin I 0.079 Triglycerides Level 129 Cholesterol Level 235 H LDL Cholesterol, Calculated 126 HDL Cholesterol 83 H Cholesterol/HDL Ratio 2.8 Ethyl Alcohol Level < 10.0 H Blood Gas Specimen Source Blood arterial Arterial Blood Date Drawn 11/05/2018 5:10:42 AM Arterial Blood pH 7.331 L (Temp corrected) Arterial Blood pCO2 43.9 (Temp correct) Arterial Blood pO2 192.9 H (Temp corrected) Arterial Blood HCO3 22.7 Arterial Blood Base Excess -3.2 L Arterial Blood 98.8 H Oxygen Saturation Mati Test ACCEPTAB Arterial Blood Gas Right Radial Puncture Site Arterial 0.7 Blood Carboxyhemoglobin Arterial Blood Methemoglobin 0.3 Blood Gas A-a O2 476.2 H Differential Oxyhemoglobin Percent 97.8 Blood Gas Temperature 37.0 Blood Gas Respiration Rate 16.0 Blood Gas Actual 22 Respiration Rate Blood Gas Modality VENT - AC FiO2 100.0 Blood Gas Tidal Volume 500.0 Blood Gas Low PEEP Setting 5.0 Blood Gas Notified Whom AA Blood Gas Notified Time 11/05/2018 5:22:52 AM Urine Color YELLOW Urine Clarity CLEAR Urine pH 5.0 Urine Specific [place] 1.042 H Urine Ketones TRACE A Urine Nitrite NEGATIVE Urine Bilirubin NEGATIVE Urine Urobilinogen NEGATIVE Urine Leukocyte Esterase NEGATIVE Urine Microscopic RBC 10 H Urine Microscopic WBC 2 Urine Hemoglobin 2+ H Urine Glucose 2+ H Urine Total Protein 2+ H Urine Opiates Screen Negative Urine Barbiturates Negative Urine Amphetamines Screen Negative Urine Benzodiazepines Screen Negative Urine Cocaine Screen Positive Urine Cannabinoids Negative Medications Medication Current Medications Morphine Sulfate (morphine) 2 mg Q4H PRN IV PAIN LEVEL 7-10; Start 11/05/18 at 05:00 Famotidine (Pepcid Iv) 20 mg DAILY IV Last administered on 11/05/18at 09:47; Admin Dose 20 MG; Start 11/05/18 at 09:00 Fentanyl 100 ml @ 2.5 mls/hr TITRATE ONCE IV Last administered on 11/05/18at 05:51; Admin Dose 2.5 MLS/HR; Start 11/05/18 at 05:30; Stop 11/06/18 at 21:29 Midazolam HCl 50 ml @ 1 mls/hr TITRATE IV Last administered on 11/05/18at 09:48; Admin Dose 1 MLS/HR; Start 11/05/18 at 08:30 Nicardipine HCl 200 ml @ 50 mls/hr TITRATE IV Last administered on 11/05/18at 11:18; Admin Dose 50 MLS/HR; Start 11/05/18 at 11:00 Sodium Chloride 1,000 ml @ 40 mls/hr Q24H IV ; Start 11/05/18 at 12:30 Thiamine HCl (Vitamin B1) 100 mg DAILY NGT ; Start 11/05/18 at 12:30 Labetalol HCl (Normodyne) 100 mg BID NGT ; Start 11/05/18 at 12:30 Nifedipine (Procardia) 20 mg Q6 NGT ; Start 11/05/18 at 12:30 Ondansetron HCl (Zofran Inj) 4 mg Q4H PRN IV NAUSEA AND/OR VOMITING; Start 11/05/18 at 12:30 Albuterol (Proventil 0.083% (Neb)) 1.25 mg Q2H RESP THERAPY PRN HHN WHEEZING AND SOB; Start 11/05/18 at 12:30 DAINA LYONS MD November 05, 2018 13:13
--- NOTE | 2018-11-05 14:16 | HP ---
DATE OF ADMISSION: 11/05/2018 TYPE OF CONSULTATION: Pulmonary consult. REASON FOR CONSULTATION: Acute respiratory failure. REFERRING PHYSICIAN: Dr. Marciano Dukes. HISTORY OF PRESENT ILLNESS: This is a 58-year-old gentleman with a history of hypertension, history of CVA with left-sided weakness, who presented to ER with increasing left-sided weakness and intracta ble vomiting. In the ER, patient was noted to have a blood pressure of 262/154. CT scan showed intr acranial bleed with ventricular extension and uncal herniation. The patient was seen by neurosurgery and underwent ventriculostomy. The patient was intubated in the ER. Currently, the patient remains in the ICU, orally intubated. Blood pressure is stable. No further history available at this time. REVIEW OF SYSTEMS: Unable to obtain. PAST MEDICAL HISTORY: Apparently history of hypertension and CVA in the past. Also history of cocai ne abuse. ALLERGIES: None known to me. SOCIAL HABITS: Unknown. FAMILY HISTORY: Unknown. PHYSICAL EXAMINATION: VITAL SIGNS: Blood pressure 140/92, pulse 83, respirations 17, temperature afebrile. HEENT: Pupils are equal and react to light, orally intubated. NECK: Supple, no JVD noted, no cervical adenopathy noted. LUNGS: Fair breath sounds bilaterally. CARDIOVASCULAR: S1, S2 normal. ABDOMEN: Soft, nontender, no megaly or masses noted. EXTREMITIES: No clubbing or cyanosis noted. NEUROLOGIC: Unresponsive. LABORATORIES: WBC 6.8, hemoglobin 12.4, hematocrit 35, platelets 222. Sodium 140, potassium 3.7, ch loride 106, CO2 of 25, BUN 37, creatinine 2.91, glucose 208. ABG shows pH of 7.33, pCO2 of 44, pO2 o f 193. Chest x-ray shows bilateral perihilar and lower lobe interstitial infiltrates suggestive of p ulmonary edema and cardiomegaly. IMPRESSION: 1. Acute hypoxemic respiratory failure. 2. Intracranial bleed, status post ventriculostomy. 3. Hypertensive crisis. 4. History of prior cerebrovascular accident with left-sided weakness. 5. Cocaine positive in the urine screen. 6. Encephalopathy. 7. Acute on chronic renal failure likely. PLAN: 1. Continue vent support. 2. Lower FIO2 as tolerated. 3. Neurosurgical followup. 4. Gastrointestinal and deep venous thrombosis prophylaxis. 5. Consider nephrology evaluation. 6. Discussed with the staff in detail. Dictated By: ELA GROVES MD, MA/MARGI Conf#: [id number] DID#: [id number] CC: MARCIANO DUKES MD;*End*
[2018-11-05] MEDS: SOD CHLORIDE 0.9% 1,000 ML IV SCH (14:18)
[2018-11-05] MEDS: THIAMINE 100 MG TAB NGT SCH (14:19)
[2018-11-05] MEDS: NIFEdipine 10 MG CAP NGT SCH ×2 (14:19→18:31)
[2018-11-05] MEDS: LABETALOL 100 MG TAB NGT SCH ×2 (14:20→22:14)
[2018-11-05] MEDS ORDERED: niCARdipine 25 MG in SOD CHLORIDE 0.9% 240 ML IV SCH (16:00)
--- NOTE | 2018-11-05 17:11 | CONS ---
Assessment/Plan Assessment/Plan Hospital Course 58 yo M with hx of uncontrolled HTN, DM, substance abuse and other comorbidities who presents for evaluation of L sided weakness and vomiting. Noted on HCT to have a thalamic hemorrhage with extension into the ventricles. The etiology is likely to be a hypertensive hemorrhage in the context of illicit substance abuse Secondary hemorrhage following primary ischemic is not yet excluded... CTA H/N is without evidence of underlying AVM or aneurysm. P: Continued management per neurosurgery Limit sedation where possible Hold antiplatelets/anticoagulants in the shortterm MRI brain when medically able Will follow clinically Consultation Date/Type/Reason Admit Date/Time 11/05/2018 Type of Consult Neurology Requesting Provider: EDUARDO ASENCIO Date/Time of Note DATE: 11/05/18 TIME: 17:11 Hx of Present Illness The pt is currently unable to contribute a hx. It is elsewhere noted: Hx of Present Illness This is a 58-year-old male with a history of hypertension, CVA with left-sided deficit, cocaine abuse who was brought to the ER for worsening left-sided weakness and intractable vomiting. Patient had an acute onset significantly worsening of left-sided weakness and vomiting. When he presented to the ER, blood pressure was 262/154. Head CT shows intracerebral and intraventricular hemorrhage, brain herniation and obstructive hydrocephalus. Patient was taken to the OR and now is status post placement of a left ventriculostomy. Of note in the ER, CT Angio of the head and neck showed 50 to 70% left vertebral artery stenosis and a bilateral cavernous and supraclinoid internal carotid with moderate to severe flow-limiting stenosis. Subjective hx not possible: pt non-verbal, pt critical, pt critical status Exam/Review of Systems Exam Vitals Vital Signs Date Temp Pulse Resp B/P (MAP) Pulse Ox O2 O2 Flow FiO2 Time Delivery Rate 11/05/18 82 16:00 11/05/18 16 107/72 96 15:30 (84) 11/05/18 50 15:19 11/05/18 [place] 15:00 l Ventilato r 11/05/18 100.1 12:00 11/05/18 15.0 03:21 Exam PE: Gen Appearance: No Apparent Distress HEENT: Intubated Cardiovascular: Regular rate Abdomen: Soft Extremities: Dry NE: The patient was comatose and nonverbal. Cranial nerve examination was limited by mental status. R pupil was pinpoint and nonreactive; L pupil had a cataract. There was no afferent pupillary defect. Funduscopic examination was limited. Face was grossly symmetric, w/ out cough r eflexes. Tone was normal. Muscle bulk was normal. I did not see fasciculations. The patient minimally withdrew his lower extremities to noxious stimulation. He was spastic in his L arm; did not withdraw his R to noxious stimuli. Coordination and gait testing was limited by mental status. Arm and leg reflexes were within normal limits and symmetric. Jaeger's sign was absent. Plantar responses were flexor. Results Result Diagram: 11/05/18 0250 11/05/18 0250 Results 24hrs Laboratory Tests Test 11/05/18 02:50 11/05/18 05:05 11/05/18 10:00 11/05/18 14:37 White Blood Count 6.8 Red Blood Count 3.79 L Hemoglobin 12.4 L Hematocrit 35.0 L Mean Corpuscular 92.3 Volume Mean Corpuscular 32.7 Hemoglobin Mean Corpuscular 35.4 Hemoglobin Concen t Red Cell 12.7 Distribution Width Platelet Count 222 Mean Platelet 10.4 Volume Immature 0.100 Granulocytes % Neutrophils % 49.4 Lymphocytes % 36.1 Monocytes % 6.6 Eosinophils % 6.3 Basophils % 1.5 Nucleated Red 0.0 Blood Cells % Immature 0.010 Granulocytes # Neutrophils # 3.4 Lymphocytes # 2.5 Monocytes # 0.5 Eosinophils # 0.4 Basophils # 0.1 Nucleated Red 0.0 Blood Cells # Prothrombin Time 11.9 Prothrombin Time 0.9 Ratio INR International 0.87 Normalized Ratio Activated 27.9 Partial Thrombopl ast Time Sodium Level 140 Potassium Level 3.7 Chloride Level 106 Carbon Dioxide 25 Level Anion Gap 9 Blood Urea 37 H Nitrogen Creatinine 2.91 H Est Glomerular 22 L Filtrat Rate mL/min Glucose Level 208 Hemoglobin A1c 7.1 H Calcium Level 9.0 Creatine Kinase 290 H Creatine Kinase 1.9 Index Creatinine Kinase 5.53 H MB (Mass) Troponin I 0.079 Triglycerides 129 Level Cholesterol Level 235 H LDL Cholesterol, 126 Calculated HDL Cholesterol 83 H Cholesterol/HDL 2.8 Ratio Ethyl Alcohol < 10.0 H Level Blood Gas Blood arterial Specimen Source Arterial Blood 11/05/2018 5:10:4 Date Drawn 2 AM Arterial Blood pH 7.331 L (Temp corrected) Arterial Blood 43.9 pCO2 (Temp correct) Arterial Blood 192.9 H pO2 (Temp corrected) Arterial Blood 22.7 HCO3 Arterial Blood -3.2 L Base Excess Arterial Blood 98.8 H Oxygen Saturation Mati Test ACCEPTAB Arterial Blood Right Radial Gas Puncture Site Arterial 0.7 Blood Carboxyhemo globin Arterial Blood 0.3 Methemoglobin Blood Gas A-a O2 476.2 H Differential Oxyhemoglobin 97.8 Percent Blood Gas 37.0 Temperature Blood Gas 16.0 Respiration Rate Blood Gas Actual 22 Respiration Rate Blood Gas VENT - AC Modality FiO2 100.0 Blood Gas Tidal 500.0 Volume Blood Gas Low 5.0 PEEP Setting Blood Gas AA Notified Whom Blood Gas 11/05/2018 5:22:5 Notified Time 2 AM Urine Color YELLOW Urine Clarity CLEAR Urine pH 5.0 Urine Specific 1.042 H Caroline Urine Ketones TRACE A Urine Nitrite NEGATIVE Urine Bilirubin NEGATIVE Urine NEGATIVE Urobilinogen Urine Leukocyte NEGATIVE Esterase Urine Microscopic 10 H RBC Urine Microscopic 2 WBC Urine Hemoglobin 2+ H Urine Glucose 2+ H Urine Total 2+ H 343.0 H Protein Urine Opiates Negative Screen Urine Negative Barbiturates Urine Negative Amphetamines Screen Urine Negative Benzodiazepines Screen Urine Cocaine Positive Screen Urine Negative Cannabinoids Urine Random 89.04 Creatinine Urine Random 49 Sodium Urine 3.85 Protein/Creatinin e Ratio Medications Medication Current Medications Morphine Sulfate (morphine) 2 mg Q4H PRN IV PAIN LEVEL 7-10; Start 11/05/18 at 05:00 Famotidine (Pepcid Iv) 20 mg DAILY IV Last administered on 11/05/18at 09:47; Admin Dose 20 MG; Start 11/05/18 at 09:00 Fentanyl 100 ml @ 2.5 mls/hr TITRATE ONCE IV Last administered on 11/05/18at 05:51; Admin Dose 2.5 MLS/HR; Start 11/05/18 at 05:30; Stop 11/06/18 at 21:29 Midazolam HCl 50 ml @ 1 mls/hr TITRATE IV Last administered on 11/05/18at 09:48; Admin Dose 1 MLS/HR; Start 11/05/18 at 08:30 Sodium Chloride 1,000 ml @ 40 mls/hr Q24H IV Last administered on 11/05/18at 14:18; Admin Dose 40 MLS/HR; Start 11/05/18 at 12:30 Thiamine HCl (Vitamin B1) 100 mg DAILY NGT Last administered on 11/05/18at 14:19; Admin Dose 100 MG; Start 11/05/18 at 12:30 Labetalol HCl (Normodyne) 100 mg BID NGT Last administered on 11/05/18at 14:20; Admin Dose 100 MG; Start 11/05/18 at 12:30 Nifedipine (Procardia) 20 mg Q6 NGT Last administered on 11/05/18at 14:19; Admin Dose 20 MG; Start 11/05/18 at 12:30 Ondansetron HCl (Zofran Inj) 4 mg Q4H PRN IV NAUSEA AND/OR VOMITING; Start 11/05/18 at 12:30 Albuterol (Proventil 0.083% (Neb)) 1.25 mg Q2H RESP THERAPY PRN HHN WHEEZING AND SOB; Start 11/05/18 at 12:30 Nicardipine HCl 25 mg/Sodium Chloride 250 ml @ 0 mls/hr TITRATE IV ; Start 11/05/18 at 16:00 Past Medical History reviewed Medical History: hypertension, other (substance abuse ) Home Meds Active Scripts Linagliptin (TRADJENTA) 5 Mg Tablet, 5 MG PO QAM for glucose for 30 Days, #30 TAB Prov:QI MÁRQUEZ MD 03/28/18 Doxazosin Mesylate* (Cardura*) 4 Mg Tablet, 4 MG PO HS for 30 Days, #30 TAB For blood pressure control and prostate Prov:QI MÁRQUEZ MD 03/28/18 Atorvastatin* (Atorvastatin*) 80 Mg Tablet, 80 MG PO HS for 30 Days, #30 TAB Prov:QI MÁRQUEZ MD 03/28/18 Medications Current Medications Morphine Sulfate (morphine) 2 mg Q4H PRN IV PAIN LEVEL 7-10; Start 11/05/18 at 05:00 Famotidine (Pepcid Iv) 20 mg DAILY IV Last administered on 11/05/18at 09:47; Admin Dose 20 MG; Start 11/05/18 at 09:00 Fentanyl 100 ml @ 2.5 mls/hr TITRATE ONCE IV Last administered on 11/05/18at 05:51; Admin Dose 2.5 MLS/HR; Start 11/05/18 at 05:30; Stop 11/06/18 at 21:29 Midazolam HCl 50 ml @ 1 mls/hr TITRATE IV Last administered on 11/05/18 09:48; Admin Dose 1 MLS/HR; Start 11/05/18 at 08:30 Sodium Chloride 1,000 ml @ 40 mls/hr Q24H IV Last administered on 11/05/18 14:18; Admin Dose 40 MLS/HR; Start 11/05/18 at 12:30 Thiamine HCl (Vitamin B1) 100 mg DAILY NGT Last administered on 11/05/18 14:19; Admin Dose 100 MG; Start 11/05/18 at 12:30 Labetalol HCl (Normodyne) 100 mg BID NGT Last administered on 11/05/18 14:20; Admin Dose 100 MG; Start 11/05/18 at 12:30 Nifedipine (Procardia) 20 mg Q6 NGT Last administered on 11/05/18 14:19; Admin Dose 20 MG; Start 11/05/18 at 12:30 Ondansetron HCl (Zofran Inj) 4 mg Q4H PRN IV NAUSEA AND/OR VOMITING; Start 11/05/18 at 12:30 Albuterol (Proventil 0.083% (Neb)) 1.25 mg Q2H RESP THERAPY PRN HHN WHEEZING AND SOB; Start 11/05/18 at 12:30 Nicardipine HCl 25 mg/Sodium Chloride 250 ml @ 0 mls/hr TITRATE IV ; Start 11/05/18 at 16:00 Allergies: Coded Allergies: No Known Allergy (Unverified , 03/25/18) Past Surgical History reviewed Past Surgical Hx: other (See HPI) Social History reviewed Alcohol Use: none Smoking Status: Current every day smoker Drug Use: cocaine LUZ ALBARADO NP November 05, 2018 17:11 CONY WOMACK November 06, 2018 06:40
[2018-11-05] MEDS ORDERED: LEVETIRACETAM 500 MG (PMX) 100 ML IVPB SCH (21:00)
[2018-11-06] VITALS (38 sets, daily range): BP systolic 95–148; BP diastolic 65–89; PULSE 67–105; RESP 16–20
[2018-11-06] MEDS: NIFEdipine 10 MG CAP NGT SCH ×4 (06:13→18:18)
--- NOTE | 2018-11-06 07:56 | CONS ---
Assessment/Plan Assessment/Plan Assessment/Plan (Daily) Significant bleed with worsening herniation not consistent with recovery - meaningful or otherwise. Given location of bleed, surgical management is not safe - continue draining EVD - would consider transitioning to comfort measures only Consultation Date/Type/Reason Admit Date/Time November 05, 2018 at 03:49 Initial Consult Date 11/05/18 Type of Consult Neurosurgery Requesting Provider: EDUARDO ASENCIO Date/Time of Note DATE: 11/06/18 TIME: 07:32 24 HR Interval Summary Free Text/Dictation Film review: CT shows ventriculostomy in good position, but casted IVH in all 4 ventricles and massive ICH. Worsening brain herniation Exam/Review of Systems Exam Vitals Vital Signs Date Temp Pulse Resp B/P (MAP) Pulse Ox O2 O2 Flow FiO2 Time Delivery Rate 11/06/18 74 16 98 50 05:20 11/06/18 111/78 Mechanical 05:00 (89) Ventilator 11/06/18 98.8 04:00 11/05/18 15.0 03:21 Intake and Output 11/05/18 11/05/18 11/06/18 1515:00 23:00 07:00 IntakeIntake Total 373.25 ml 460.5 ml 280 ml OutputOutput Total 546 ml 870 ml 120 ml BalanceBalance -172.75 ml -409.5 ml 160 ml Results Result Diagram: 11/06/18 0430 11/06/18 0430 Results 24hrs Laboratory Tests Test 11/05/18 10:00 11/05/18 14:37 11/05/18 22:13 11/06/18 04:30 Urine Color YELLOW Urine Clarity CLEAR Urine pH 5.0 Urine Specific 1.042 H [place] Urine Ketones TRACE A Urine Nitrite NEGATIVE Urine Bilirubin NEGATIVE Urine NEGATIVE Urobilinogen Urine Leukocyte NEGATIVE Esterase Urine Microscopic 10 H RBC Urine Microscopic 2 WBC Urine Hemoglobin 2+ H Urine Glucose 2+ H Urine Total 2+ H 343.0 H Protein Urine Opiates Negative Screen Urine Negative Barbiturates Urine Negative Amphetamines Screen Urine Negative Benzodiazepines Screen Urine Cocaine Positive Screen Urine Negative Cannabinoids Urine Eosinophils 0.0 % Urine Random 89.04 Creatinine Urine Random 49 Sodium Urine 3.85 Protein/Creatinin e Ratio Bedside Glucose 138 White Blood Count 16.1 #H Red Blood Count 3.18 L Hemoglobin 10.4 L Hematocrit 30.0 L Mean Corpuscular 94.3 Volume Mean Corpuscular 32.7 Hemoglobin Mean Corpuscular 34.7 Hemoglobin Concen t Red Cell 13.3 Distribution Width Platelet Count 199 Mean Platelet 11.0 H Volume Immature 0.600 H Granulocytes % Neutrophils % Lymphocytes % Monocytes % Eosinophils % Basophils % Nucleated Red 0.0 Blood Cells % Immature 0.090 H Granulocytes # Neutrophils # Lymphocytes # Monocytes # Eosinophils # Basophils # Nucleated Red Blood Cells # Prothrombin Time 13.6 Prothrombin Time 1.1 Ratio INR International 1.03 Normalized Ratio Sodium Level 140 Potassium Level 3.8 Chloride Level 108 Carbon Dioxide 23 Level Anion Gap 9 Blood Urea 51 H Nitrogen Creatinine 3.75 H Est Glomerular 17 L Filtrat Rate mL/min Glucose Level 171 Hemoglobin A1c 6.8 H Uric Acid 7.6 Calcium Level 8.4 Phosphorus Level 5.1 H Magnesium Level 1.9 Total Bilirubin 0.3 Direct Bilirubin 0.00 Indirect 0.3 Bilirubin Aspartate Amino 21 Transf (AST/SGOT) Alanine 12 L Aminotransferase (ALT/SGPT) Alkaline 56 Phosphatase Creatine Kinase 122 # Total Protein 6.3 Albumin 3.0 L Globulin 3.30 H Albumin/Globulin 0.90 Ratio Thyroid 3.010 Stimulating Hormone (TSH) Test 11/06/18 06:00 Blood Gas Blood arterial Specimen Source Arterial Blood 11/06/2018 5:30:5 Date Drawn 2 AM Arterial Blood pH 7.386 (Temp corrected) Arterial Blood 35.8 pCO2 (Temp correct) Arterial Blood 88.5 pO2 (Temp corrected) Arterial Blood 21.0 L HCO3 Arterial Blood -3.5 L Base Excess Arterial Blood 95.9 Oxygen Saturation Mati Test ACCEPTAB Arterial Blood Left Radial Gas Puncture Site Arterial 0.3 Blood Carboxyhemo globin Arterial Blood 0.4 Methemoglobin Blood Gas A-a O2 227.7 H Differential Oxyhemoglobin 95.2 Percent Blood Gas 37.0 Temperature Blood Gas 16.0 Respiration Rate Blood Gas Actual 16 Respiration Rate Blood Gas VENT - AC Modality FiO2 50.0 Blood Gas Tidal 500.0 Volume Blood Gas Low 5.0 PEEP Setting Blood Gas UP Notified Whom Blood Gas 11/06/2018 5:43:5 Notified Time 1 AM Imaging Imaging Casted ventricles. Massive ICH, Worsening brain herniation. Medications Medication Current Medications Morphine Sulfate (morphine) 2 mg Q4H PRN IV PAIN LEVEL 7-10; Start 11/05/18 at 05:00 Famotidine (Pepcid Iv) 20 mg DAILY IV Last administered on 11/05/18 09:47; Admin Dose 20 MG; Start 11/05/18 at 09:00 Fentanyl 100 ml @ 2.5 mls/hr TITRATE ONCE IV Last administered on 11/05/18 05:51; Admin Dose 2.5 MLS/HR; Start 11/05/18 at 05:30; Stop 11/06/18 at 21:29 Midazolam HCl 50 ml @ 1 mls/hr TITRATE IV Last administered on 11/05/18 09:48; Admin Dose 1 MLS/HR; Start 11/05/18 at 08:30 Sodium Chloride 1,000 ml @ 40 mls/hr Q24H IV Last administered on 11/05/18 14:18; Admin Dose 40 MLS/HR; Start 11/05/18 at 12:30 Thiamine HCl (Vitamin B1) 100 mg DAILY NGT Last administered on 11/05/18 14:19; Admin Dose 100 MG; Start 11/05/18 at 12:30 Labetalol HCl (Normodyne) 100 mg BID NGT Last administered on 11/05/18at 22:14; Admin Dose 100 MG; Start 11/05/18 at 12:30 Nifedipine (Procardia) 20 mg Q6 NGT Last administered on 11/06/18at 06:13; Admin Dose 20 MG; Start 11/05/18 at 12:30 Ondansetron HCl (Zofran Inj) 4 mg Q4H PRN IV NAUSEA AND/OR VOMITING; Start 11/05/18 at 12:30 Albuterol (Proventil 0.083% (Neb)) 1.25 mg Q2H RESP THERAPY PRN HHN WHEEZING AND SOB; Start 11/05/18 at 12:30 Nicardipine HCl 25 mg/Sodium Chloride 250 ml @ 0 mls/hr TITRATE IV ; Start 11/05/18 at 16:00 LATANYA CONNELL MD November 06, 2018 07:56
--- NOTE | 2018-11-06 09:40 | CONS ---
Assessment/Plan Assessment/Plan Hospital Course 58 yo M with hx of uncontrolled HTN, DM, substance abuse and other comorbidities who presents for evaluation of L sided weakness and vomiting. Noted on HCT to have a thalamic hemorrhage with extension into the ventricles. The etiology is likely to be a hypertensive hemorrhage in the context of illicit substance abuse Secondary hemorrhage following primary ischemic event is not yet excluded... CTA H/N is without evidence of underlying AVM or aneurysm. Repeat HCT is notable for worsening intraventricular and thalamic hemorrhage with transependymal flow P: Continued management per neurosurgery Limit sedation where possible Hold antiplatelets/anticoagulants in the shortterm MRI brain when medically able Will follow clinically Consultation Date/Type/Reason Admit Date/Time November 05, 2018 at 03:49 Type of Consult Neurology Requesting Provider: EDUARDO ASENCIO Date/Time of Note DATE: 11/06/18 TIME: 09:40 24 HR Interval Summary Free Text/Dictation Continues critical care. S/p repeat HCT. Exam Vital Signs Vitals Vital Signs Date Temp Pulse Resp B/P (MAP) Pulse Ox O2 O2 Flow FiO2 Time Delivery Rate 11/06/18 73 16 98 50 09:14 11/06/18 111/78 Mechanical 05:00 (89) Ventilator 11/06/18 98.8 04:00 11/05/18 15.0 03:21 Intake and Output 11/05/18 11/05/18 11/06/18 1515:00 23:00 07:00 IntakeIntake Total 373.25 ml 460.5 ml 280 ml OutputOutput Total 546 ml 870 ml 120 ml BalanceBalance -172.75 ml -409.5 ml 160 ml Exam PE: Gen Appearance: No Apparent Distress HEENT: Intubated; L Cardiovascular: Regular rate Abdomen: Soft Extremities: Dry NE: The patient was obtunded. Nonverbal d/t ETT. Did not open eyes or follow any commands. Cranial nerve examination was limited by mental status. R pupil was pinpoint; L pupil had a cataract. There was no afferent pupillary defect. Funduscopic examination was limited. Face was grossly symmetric, w/ present corneal and cough reflexes. Tone was normal. Muscle bulk was normal. I did not see fasciculations. The patient was spastic in his L arm, localized his RUE and withdrew his lower extremities to noxious stimuli. Coordination and gait testing was limited by mental status. Arm and leg reflexes were within normal limits and symmetric. Jaeger's sign was absent. Plantar responses were flexor. LUZ ALBARADO NP November 06, 2018 09:40
[2018-11-06] MEDS: LABETALOL 100 MG TAB NGT SCH ×2 (11:01→21:33)
[2018-11-06] MEDS: THIAMINE 100 MG TAB NGT SCH (11:02)
[2018-11-06] MEDS: FAMOTIDINE 20 MG INJ IV SCH (11:02)
[2018-11-06] MEDS: SOD CHLORIDE 0.9% 1,000 ML IV SCH ×2 (12:30→16:17)
--- NOTE | 2018-11-06 13:15 | CONS ---
Assessment/Plan Assessment/Plan Assessment/Plan (Daily) 1. acute hemorrhagic stroke , Intracerebral hemorrhage with obstructive hydrocephalus s/p ventriculostomy tube placement on 11/05/18 2. Acute on chronic renal failure 2/2 ATN 2. HTN emergency 4. H/o HTN 5. Possibel CKD III 2/2 HTN nephrosclerosis 6. H/o substance abuse, urine drug screen positive for Cocaine Plan: pt remains intubated, BUN/Cr 51/3.75, Electrolytes stable Unresponsive off sedatio but some refelex intact NIcardipine gtt for BP control and ICH if BUN/Cr continues to rise then we will talk with haroldoiyl about HD options though pt will be poor candidate for HD will follow up Consultation Date/Type/Reason Admit Date/Time November 05, 2018 at 03:49 Initial Consult Date 11/05/18 Type of Consult NEPHROLOGY Requesting Provider: EDUARDO ASENCIO Date/Time of Note DATE: 11/06/18 TIME: 13:14 24 HR Interval Summary Free Text/Dictation pt remains intubate,d BP stable Exam/Review of Systems Exam Vitals Vital Signs Date Temp Pulse Resp B/P (MAP) Pulse Ox O2 O2 Flow FiO2 Time Delivery Rate 11/06/18 98.3 72 16 109/74 97 Mechanical 12:00 (86) Ventilator 11/06/18 45 11:27 11/05/18 15.0 03:21 Intake and Output 11/05/18 11/05/18 11/06/18 1515:00 23:00 07:00 IntakeIntake Total 373.25 ml 460.5 ml 280 ml OutputOutput Total 546 ml 870 ml 127 ml BalanceBalance -172.75 ml -409.5 ml 153 ml Exam ENMT: intubated Neck: supple, non-tender Respiratory: congested cough, crackles/rales, diminished breath sounds Cardiovascular: regular rate and rhythm, nl pulses Gastrointestinal: soft, non-tender Musculoskeletal: muscle weakness, swelling Extremities: normal pulses Neurological: unresponsive, other (intubated on ventilator ) Skin: nl turgor Lymph: nl lymph nodes Results Result Diagram: 11/06/18 0430 11/06/18 0430 Results 24hrs Laboratory Tests Test 11/05/18 14:37 11/05/18 22:13 11/06/18 04:30 11/06/18 06:00 Urine Eosinophils 0.0 % Urine Random 89.04 Creatinine Urine Random 49 Sodium Urine 3.85 Protein/Creatinin e Ratio Urine Total 343.0 H Protein Bedside Glucose 138 White Blood Count 16.1 #H Red Blood Count 3.18 L Hemoglobin 10.4 L Hematocrit 30.0 L Mean Corpuscular 94.3 Volume Mean Corpuscular 32.7 Hemoglobin Mean Corpuscular 34.7 Hemoglobin Concen t Red Cell 13.3 Distribution Width Platelet Count 199 Mean Platelet 11.0 H Volume Immature 0.600 H Granulocytes % Neutrophils % Segmented 82 H Neutrophils % (Manual) Band Neutrophils 7 H % (Manual) Lymphocytes % Lymphocytes % 7 L (Manual) Monocytes % Monocytes % 3 (Manual) Eosinophils % Basophils % Basophils % 1 (Manual) Nucleated Red 0.0 Blood Cells % Immature 0.090 H Granulocytes # Neutrophils # Neutrophils # 13.4 H (Manual) Band Neutrophils 1.1 H # Lymphocytes 1.1 (Manual) Lymphocytes # Monocytes # Monocytes # 0.4 (Manual) Eosinophils # Basophils # Basophils # 0.1 H (Manual) Nucleated Red Blood Cells # Platelet Estimate NORMAL Poikilocytosis 1+ Anisocytosis 1+ Prothrombin Time 13.6 Prothrombin Time 1.1 Ratio INR International 1.03 Normalized Ratio Sodium Level 140 Potassium Level 3.8 Chloride Level 108 Carbon Dioxide 23 Level Anion Gap 9 Blood Urea 51 H Nitrogen Creatinine 3.75 H Est Glomerular 17 L Filtrat Rate mL/min Glucose Level 171 Hemoglobin A1c 6.8 H Uric Acid 7.6 Calcium Level 8.4 Phosphorus Level 5.1 H Magnesium Level 1.9 Total Bilirubin 0.3 Direct Bilirubin 0.00 Indirect 0.3 Bilirubin Aspartate Amino 21 Transf (AST/SGOT) Alanine 12 L Aminotransferase (ALT/SGPT) Alkaline 56 Phosphatase Creatine Kinase 122 # Total Protein 6.3 Albumin 3.0 L Globulin 3.30 H Albumin/Globulin 0.90 Ratio Thyroid 3.010 Stimulating Hormone (TSH) Blood Gas Blood arterial Specimen Source Arterial Blood 11/06/2018 5:30:5 Date Drawn 2 AM Arterial Blood pH 7.386 (Temp corrected) Arterial Blood 35.8 pCO2 (Temp correct) Arterial Blood 88.5 pO2 (Temp corrected) Arterial Blood 21.0 L HCO3 Arterial Blood -3.5 L Base Excess Arterial Blood 95.9 Oxygen Saturation Mati Test ACCEPTAB Arterial Blood Left Radial Gas Puncture Site Arterial 0.3 Blood Carboxyhemo globin Arterial Blood 0.4 Methemoglobin Blood Gas A-a O2 227.7 H Differential Oxyhemoglobin 95.2 Percent Blood Gas 37.0 Temperature Blood Gas 16.0 Respiration Rate Blood Gas Actual 16 Respiration Rate Blood Gas VENT - AC Modality FiO2 50.0 Blood Gas Tidal 500.0 Volume Blood Gas Low 5.0 PEEP Setting Blood Gas UP Notified Whom Blood Gas 11/06/2018 5:43:5 Notified Time 1 AM Medications Medication Current Medications Morphine Sulfate (morphine) 2 mg Q4H PRN IV PAIN LEVEL 7-10; Start 11/05/18 at 05:00 Famotidine (Pepcid Iv) 20 mg DAILY IV Last administered on 11/06/18 11:02; Admin Dose 20 MG; Start 11/05/18 at 09:00 Fentanyl 100 ml @ 2.5 mls/hr TITRATE ONCE IV Last administered on 11/05/18 05:51; Admin Dose 2.5 MLS/HR; Start 11/05/18 at 05:30; Stop 11/06/18 at 21:29 Midazolam HCl 50 ml @ 1 mls/hr TITRATE IV Last administered on 11/05/18 09:48; Admin Dose 1 MLS/HR; Start 11/05/18 at 08:30 Sodium Chloride 1,000 ml @ 40 mls/hr Q24H IV Last administered on 11/05/18 14:18; Admin Dose 40 MLS/HR; Start 11/05/18 at 12:30 Thiamine HCl (Vitamin B1) 100 mg DAILY NGT Last administered on 11/06/18 11:02; Admin Dose 100 MG; Start 11/05/18 at 12:30 Labetalol HCl (Normodyne) 100 mg BID NGT Last administered on 11/06/18 11:01; Admin Dose 100 MG; Start 11/05/18 at 12:30 Nifedipine (Procardia) 20 mg Q6 NGT Last administered on 11/06/18 12:18; Admin Dose 20 MG; Start 11/05/18 at 12:30 Ondansetron HCl (Zofran Inj) 4 mg Q4H PRN IV NAUSEA AND/OR VOMITING; Start 11/05/18 at 12:30 Albuterol (Proventil 0.083% (Neb)) 1.25 mg Q2H RESP THERAPY PRN HHN WHEEZING AND SOB; Start 11/05/18 at 12:30 Nicardipine HCl 25 mg/Sodium Chloride 250 ml @ 0 mls/hr TITRATE IV ; Start 11/05/18 at 16:00 DAINA LYONS MD November 06, 2018 13:14
--- NOTE | 2018-11-06 15:49 | CONS ---
Consult Date/Type/Reason Admit Date/Time November 05, 2018 at 03:49 Initial Consult Date 11/05/18 Requesting Provider: EDUARDO ASENCIO Date/Time of Note DATE: 11/06/18 TIME: 15:46 Subjective Unresponsive on the vent. Objective Vitals Vital Signs Date Temp Pulse Resp B/P (MAP) Pulse Ox O2 O2 Flow FiO2 Time Delivery Rate 11/06/18 98.3 72 16 109/74 97 Mechanical 12:00 (86) Ventilator 11/06/18 45 11:27 11/05/18 15.0 03:21 Intake and Output 11/05/18 11/05/18 11/06/18 1515:00 23:00 07:00 IntakeIntake Total 373.25 ml 460.5 ml 280 ml OutputOutput Total 546 ml 870 ml 127 ml BalanceBalance -172.75 ml -409.5 ml 153 ml Exam HEENT: Pupils are equal and react to light, orally intubated. NECK: Supple, no JVD noted, no cervical adenopathy noted. LUNGS: Fair breath sounds bilaterally. CARDIOVASCULAR: S1, S2 normal. ABDOMEN: Soft, nontender, no megaly or masses noted. EXTREMITIES: No clubbing or cyanosis noted. NEUROLOGIC: Unresponsive. Comatose Results/Medications Result Diagram: 11/06/18 0430 11/06/18 0430 Results 24 hrs Laboratory Tests Test 11/05/18 22:13 11/06/18 04:30 11/06/18 06:00 Bedside Glucose 138 White Blood Count 16.1 #H Red Blood Count 3.18 L Hemoglobin 10.4 L Hematocrit 30.0 L Mean Corpuscular Volume 94.3 Mean Corpuscular Hemoglobin 32.7 Mean Corpuscular 34.7 Hemoglobin Concent Red Cell Distribution Width 13.3 Platelet Count 199 Mean Platelet Volume 11.0 H Immature Granulocytes % 0.600 H Neutrophils % Segmented Neutrophils 82 H % (Manual) Band Neutrophils % (Manual) 7 H Lymphocytes % Lymphocytes % (Manual) 7 L Monocytes % Monocytes % (Manual) 3 Eosinophils % Basophils % Basophils % (Manual) 1 Nucleated Red Blood Cells % 0.0 Immature Granulocytes # 0.090 H Neutrophils # Neutrophils # (Manual) 13.4 H Band Neutrophils # 1.1 H Lymphocytes (Manual) 1.1 Lymphocytes # Monocytes # Monocytes # (Manual) 0.4 Eosinophils # Basophils # Basophils # (Manual) 0.1 H Nucleated Red Blood Cells # Platelet Estimate NORMAL Poikilocytosis 1+ Anisocytosis 1+ Prothrombin Time 13.6 Prothrombin Time Ratio 1.1 INR International 1.03 Normalized Ratio Sodium Level 140 Potassium Level 3.8 Chloride Level 108 Carbon Dioxide Level 23 Anion Gap 9 Blood Urea Nitrogen 51 H Creatinine 3.75 H Est Glomerular Filtrat 17 L Rate mL/min Glucose Level 171 Hemoglobin A1c 6.8 H Uric Acid 7.6 Calcium Level 8.4 Phosphorus Level 5.1 H Magnesium Level 1.9 Total Bilirubin 0.3 Direct Bilirubin 0.00 Indirect Bilirubin 0.3 Aspartate Amino 21 Transf (AST/SGOT) Alanine 12 L Aminotransferase (ALT/SGPT) Alkaline Phosphatase 56 Creatine Kinase 122 # Total Protein 6.3 Albumin 3.0 L Globulin 3.30 H Albumin/Globulin Ratio 0.90 Thyroid Stimulating 3.010 Hormone (TSH) Blood Gas Specimen Source Blood arterial Arterial Blood Date Drawn 11/06/2018 5:30:52 AM Arterial Blood pH 7.386 (Temp corrected) Arterial Blood pCO2 35.8 (Temp correct) Arterial Blood pO2 88.5 (Temp corrected) Arterial Blood HCO3 21.0 L Arterial Blood Base Excess -3.5 L Arterial Blood 95.9 Oxygen Saturation Mati Test ACCEPTAB Arterial Blood Gas Left Radial Puncture Site Arterial 0.3 Blood Carboxyhemoglobin Arterial Blood Methemoglobin 0.4 Blood Gas A-a O2 227.7 H Differential Oxyhemoglobin Percent 95.2 Blood Gas Temperature 37.0 Blood Gas Respiration Rate 16.0 Blood Gas Actual 16 Respiration Rate Blood Gas Modality VENT - AC FiO2 50.0 Blood Gas Tidal Volume 500.0 Blood Gas Low PEEP Setting 5.0 Blood Gas Notified Whom UP Blood Gas Notified Time 11/06/2018 5:43:51 AM Home Meds Active Scripts Linagliptin (TRADJENTA) 5 Mg Tablet, 5 MG PO QAM for glucose for 30 Days, #30 TAB Prov:QI MÁRQUEZ MD 03/28/18 Doxazosin Mesylate* (Cardura*) 4 Mg Tablet, 4 MG PO HS for 30 Days, #30 TAB For blood pressure control and prostate Prov:QI MÁRQUEZ MD 03/28/18 Atorvastatin* (Atorvastatin*) 80 Mg Tablet, 80 MG PO HS for 30 Days, #30 TAB Prov:QI MÁRQUEZ MD 03/28/18 Medications Current Medications Morphine Sulfate (morphine) 2 mg Q4H PRN IV PAIN LEVEL 7-10; Start 11/05/18 at 05:00 Famotidine (Pepcid Iv) 20 mg DAILY IV Last administered on 11/06/18at 11:02; Admin Dose 20 MG; Start 11/05/18 at 09:00 Fentanyl 100 ml @ 2.5 mls/hr TITRATE ONCE IV Last administered on 11/05/18at 05:51; Admin Dose 2.5 MLS/HR; Start 11/05/18 at 05:30; Stop 11/06/18 at 21:29 Midazolam HCl 50 ml @ 1 mls/hr TITRATE IV Last administered on 11/05/18at 09:48; Admin Dose 1 MLS/HR; Start 11/05/18 at 08:30 Sodium Chloride 1,000 ml @ 40 mls/hr Q24H IV Last administered on 11/05/18at 14:18; Admin Dose 40 MLS/HR; Start 11/05/18 at 12:30 Thiamine HCl (Vitamin B1) 100 mg DAILY NGT Last administered on 11/06/18 11:02; Admin Dose 100 MG; Start 11/05/18 at 12:30 Labetalol HCl (Normodyne) 100 mg BID NGT Last administered on 11/06/18 11:01; Admin Dose 100 MG; Start 11/05/18 at 12:30 Nifedipine (Procardia) 20 mg Q6 NGT Last administered on 11/06/18at 12:18; Admin Dose 20 MG; Start 11/05/18 at 12:30 Ondansetron HCl (Zofran Inj) 4 mg Q4H PRN IV NAUSEA AND/OR VOMITING; Start 11/05/18 at 12:30 Albuterol (Proventil 0.083% (Neb)) 1.25 mg Q2H RESP THERAPY PRN HHN WHEEZING AND SOB; Start 11/05/18 at 12:30 Nicardipine HCl 25 mg/Sodium Chloride 250 ml @ 0 mls/hr TITRATE IV ; Start 11/05/18 at 16:00 Assessment/Plan Assessment/Plan (Daily) IMP: 1. Acute hypoxemic respiratory failure. 2. Intracranial bleed, status post ventriculostomy. 3. Hypertensive crisis. 4. History of prior cerebrovascular accident with left-sided weakness. 5. Cocaine positive in the urine screen. 6. Encephalopathy. 7. Acute on chronic renal failure RECS: 1. I had a long discussion with family about goals of care. They are in favor of transitioning to DNR status, however, would like a bit more time prior to terminal extubation and transition to comfort measures. 40 min cc time MANJEET SANTAMARIA MD November 06, 2018 15:49
--- NOTE | 2018-11-06 16:15 | PN ---
Date/Time of Note Date/Time of Note DATE: 11/06/18 TIME: 16:11 Assessment/Plan VTE Prophylaxis Risk score (from Ns)>0 risk: 2 SCD applied (from [facility] [place] Yes SCD contraindicated: low risk/ambulating Pharmacological prophylaxis: NA/contraindicated Pharm contraindication: bleeding Lines/Catheters IV Catheter Type (from [facility]): Peripheral IV Urinary Cath still in place: Yes Reason Cath still needed: urinary retention Assessment/Plan Hospital Course Assessment plan 1. Acute ICH/ IVH, poor prognosis, sp AUTHOR shunt. Repeat CT shows worsening herniation, consider comfort care. Presently DNR 2. Hypertensive emergency 3. Cocaine abuse 4. Tobacco abuse 5. Medication nonadherence 6. Acute respiratory failure, hypoxic continue vent 7. Failure to thrive 8. Diabetes 10. Acute renal failure; CKD stage III-IV 11. Dyslipidemia not at goal 12. H/o Stroke/ tia 13. BPH 14. S: /10 events noted patient remains vent dependent with elevated blood pressure. Family at bedside updated. Seizures. /: No events remains on life support. Agrees to DNR O: Sr Physical exam No pallor droop. Sluggish right pupil may be 3 mm. Left with cataract? Regular no m/r/g Clear Benign no abd bruits Babinski's on right; left neutral Result Diagram: 11/06/18 0430 11/06/18 0430 Results 24hrs Laboratory Tests Test 11/05/18 22:13 11/06/18 04:30 11/06/18 06:00 Bedside Glucose 138 White Blood Count 16.1 #H Red Blood Count 3.18 L Hemoglobin 10.4 L Hematocrit 30.0 L Mean Corpuscular Volume 94.3 Mean Corpuscular Hemoglobin 32.7 Mean Corpuscular 34.7 Hemoglobin Concent Red Cell Distribution Width 13.3 Platelet Count 199 Mean Platelet Volume 11.0 H Immature Granulocytes % 0.600 H Neutrophils % Segmented Neutrophils 82 H % (Manual) Band Neutrophils % (Manual) 7 H Lymphocytes % Lymphocytes % (Manual) 7 L Monocytes % Monocytes % (Manual) 3 Eosinophils % Basophils % Basophils % (Manual) 1 Nucleated Red Blood Cells % 0.0 Immature Granulocytes # 0.090 H Neutrophils # Neutrophils # (Manual) 13.4 H Band Neutrophils # 1.1 H Lymphocytes (Manual) 1.1 Lymphocytes # Monocytes # Monocytes # (Manual) 0.4 Eosinophils # Basophils # Basophils # (Manual) 0.1 H Nucleated Red Blood Cells # Platelet Estimate NORMAL Poikilocytosis 1+ Anisocytosis 1+ Prothrombin Time 13.6 Prothrombin Time Ratio 1.1 INR International 1.03 Normalized Ratio Sodium Level 140 Potassium Level 3.8 Chloride Level 108 Carbon Dioxide Level 23 Anion Gap 9 Blood Urea Nitrogen 51 H Creatinine 3.75 H Est Glomerular Filtrat 17 L Rate mL/min Glucose Level 171 Hemoglobin A1c 6.8 H Uric Acid 7.6 Calcium Level 8.4 Phosphorus Level 5.1 H Magnesium Level 1.9 Total Bilirubin 0.3 Direct Bilirubin 0.00 Indirect Bilirubin 0.3 Aspartate Amino 21 Transf (AST/SGOT) Alanine 12 L Aminotransferase (ALT/SGPT) Alkaline Phosphatase 56 Creatine Kinase 122 # Total Protein 6.3 Albumin 3.0 L Globulin 3.30 H Albumin/Globulin Ratio 0.90 Thyroid Stimulating 3.010 Hormone (TSH) Blood Gas Specimen Source Blood arterial Arterial Blood Date Drawn 11/06/2018 5:30:52 AM Arterial Blood pH 7.386 (Temp corrected) Arterial Blood pCO2 35.8 (Temp correct) Arterial Blood pO2 88.5 (Temp corrected) Arterial Blood HCO3 21.0 L Arterial Blood Base Excess -3.5 L Arterial Blood 95.9 Oxygen Saturation Mati Test ACCEPTAB Arterial Blood Gas Left Radial Puncture Site Arterial 0.3 Blood Carboxyhemoglobin Arterial Blood Methemoglobin 0.4 Blood Gas A-a O2 227.7 H Differential Oxyhemoglobin Percent 95.2 Blood Gas Temperature 37.0 Blood Gas Respiration Rate 16.0 Blood Gas Actual 16 Respiration Rate Blood Gas Modality VENT - AC FiO2 50.0 Blood Gas Tidal Volume 500.0 Blood Gas Low PEEP Setting 5.0 Blood Gas Notified Whom UP Blood Gas Notified Time 11/06/2018 5:43:51 AM Exam/Review of Systems Exam Vitals Vital Signs Date Temp Pulse Resp B/P (MAP) Pulse Ox O2 O2 Flow FiO2 Time Delivery Rate 11/06/18 98.3 72 16 109/74 97 Mechanical 12:00 (86) Ventilator 11/06/18 45 11:27 11/05/18 15.0 03:21 Intake and Output 11/05/18 11/05/18 11/06/18 1515:00 23:00 07:00 IntakeIntake Total 373.25 ml 460.5 ml 280 ml OutputOutput Total 546 ml 870 ml 127 ml BalanceBalance -172.75 ml -409.5 ml 153 ml Results Results 24hrs Laboratory Tests Test 11/05/18 22:13 11/06/18 04:30 11/06/18 06:00 Bedside Glucose 138 White Blood Count 16.1 #H Red Blood Count 3.18 L Hemoglobin 10.4 L Hematocrit 30.0 L Mean Corpuscular Volume 94.3 Mean Corpuscular Hemoglobin 32.7 Mean Corpuscular 34.7 Hemoglobin Concent Red Cell Distribution Width 13.3 Platelet Count 199 Mean Platelet Volume 11.0 H Immature Granulocytes % 0.600 H Neutrophils % Segmented Neutrophils 82 H % (Manual) Band Neutrophils % (Manual) 7 H Lymphocytes % Lymphocytes % (Manual) 7 L Monocytes % Monocytes % (Manual) 3 Eosinophils % Basophils % Basophils % (Manual) 1 Nucleated Red Blood Cells % 0.0 Immature Granulocytes # 0.090 H Neutrophils # Neutrophils # (Manual) 13.4 H Band Neutrophils # 1.1 H Lymphocytes (Manual) 1.1 Lymphocytes # Monocytes # Monocytes # (Manual) 0.4 Eosinophils # Basophils # Basophils # (Manual) 0.1 H Nucleated Red Blood Cells # Platelet Estimate NORMAL Poikilocytosis 1+ Anisocytosis 1+ Prothrombin Time 13.6 Prothrombin Time Ratio 1.1 INR International 1.03 Normalized Ratio Sodium Level 140 Potassium Level 3.8 Chloride Level 108 Carbon Dioxide Level 23 Anion Gap 9 Blood Urea Nitrogen 51 H Creatinine 3.75 H Est Glomerular Filtrat 17 L Rate mL/min Glucose Level 171 Hemoglobin A1c 6.8 H Uric Acid 7.6 Calcium Level 8.4 Phosphorus Level 5.1 H Magnesium Level 1.9 Total Bilirubin 0.3 Direct Bilirubin 0.00 Indirect Bilirubin 0.3 Aspartate Amino 21 Transf (AST/SGOT) Alanine 12 L Aminotransferase (ALT/SGPT) Alkaline Phosphatase 56 Creatine Kinase 122 # Total Protein 6.3 Albumin 3.0 L Globulin 3.30 H Albumin/Globulin Ratio 0.90 Thyroid Stimulating 3.010 Hormone (TSH) Blood Gas Specimen Source Blood arterial Arterial Blood Date Drawn 11/06/2018 5:30:52 AM Arterial Blood pH 7.386 (Temp corrected) Arterial Blood pCO2 35.8 (Temp correct) Arterial Blood pO2 88.5 (Temp corrected) Arterial Blood HCO3 21.0 L Arterial Blood Base Excess -3.5 L Arterial Blood 95.9 Oxygen Saturation Mati Test ACCEPTAB Arterial Blood Gas Left Radial Puncture Site Arterial 0.3 Blood Carboxyhemoglobin Arterial Blood Methemoglobin 0.4 Blood Gas A-a O2 227.7 H Differential Oxyhemoglobin Percent 95.2 Blood Gas Temperature 37.0 Blood Gas Respiration Rate 16.0 Blood Gas Actual 16 Respiration Rate Blood Gas Modality VENT - AC FiO2 50.0 Blood Gas Tidal Volume 500.0 Blood Gas Low PEEP Setting 5.0 Blood Gas Notified Whom UP Blood Gas Notified Time 11/06/2018 5:43:51 AM Medications Medication Current Medications Morphine Sulfate (morphine) 2 mg Q4H PRN IV PAIN LEVEL 7-10; Start 11/05/18 at 05:00 Famotidine (Pepcid Iv) 20 mg DAILY IV Last administered on 11/06/18 11:02; Admin Dose 20 MG; Start 11/05/18 at 09:00 Fentanyl 100 ml @ 2.5 mls/hr TITRATE ONCE IV Last administered on 11/05/18 05:51; Admin Dose 2.5 MLS/HR; Start 11/05/18 at 05:30; Stop 11/06/18 at 21:29 Midazolam HCl 50 ml @ 1 mls/hr TITRATE IV Last administered on 11/05/18 09:48; Admin Dose 1 MLS/HR; Start 11/05/18 at 08:30 Sodium Chloride 1,000 ml @ 40 mls/hr Q24H IV Last administered on 11/05/18 14:18; Admin Dose 40 MLS/HR; Start 11/05/18 at 12:30 Thiamine HCl (Vitamin B1) 100 mg DAILY NGT Last administered on 11/06/18 11:02; Admin Dose 100 MG; Start 11/05/18 at 12:30 Labetalol HCl (Normodyne) 100 mg BID NGT Last administered on 11/06/18 11:01; Admin Dose 100 MG; Start 11/05/18 at 12:30 Nifedipine (Procardia) 20 mg Q6 NGT Last administered on 11/06/18 12:18; Admin Dose 20 MG; Start 11/05/18 at 12:30 Ondansetron HCl (Zofran Inj) 4 mg Q4H PRN IV NAUSEA AND/OR VOMITING; Start 11/05/18 at 12:30 Albuterol (Proventil 0.083% (Neb)) 1.25 mg Q2H RESP THERAPY PRN HHN WHEEZING AND SOB; Start 11/05/18 at 12:30 Nicardipine HCl 25 mg/Sodium Chloride 250 ml @ 0 mls/hr TITRATE IV ; Start 11/05/18 at 16:00 JOHN URIBE MD November 06, 2018 16:15
[2018-11-07] VITALS (48 sets, daily range): BP systolic 110–169; BP diastolic 72–100; PULSE 74–111; RESP 16–27
[2018-11-07] MEDS: NIFEdipine 10 MG CAP NGT SCH ×4 (00:58→17:43)
--- NOTE | 2018-11-07 08:03 | CONS ---
Assessment/Plan Assessment/Plan Assessment/Plan (Daily) 1. acute hemorrhagic stroke , Intracerebral hemorrhage with obstructive hydrocephalus s/p ventriculostomy tube placement on 11/05/18 2. Acute on chronic renal failure 2/2 ATN 2. HTN emergency 4. H/o HTN 5. Possibel CKD III 2/2 HTN nephrosclerosis 6. H/o substance abuse, urine drug screen positive for Cocaine Plan: pt remains intubated, pt continues to have deteriorating renal funciton, Urine output dropping, pt is made DNR< and family thinking about comofort care NIcardipine gtt for BP control and ICH not a candidate for renal replacement therapy due to comorbities and ICH palliative care following will follow up in AM Consultation Date/Type/Reason Admit Date/Time November 05, 2018 at 03:49 Initial Consult Date 11/05/18 Type of Consult NEPHROLOGY Requesting Provider: EDUARDO ASENCIO Date/Time of Note DATE: 11/07/18 TIME: 08:02 24 HR Interval Summary Free Text/Dictation pt continues to have deteriorating renal funciton, Urine output dropping, pt is made DNR< and family thinking about comofort care Exam/Review of Systems Exam Vitals Vital Signs Date Temp Pulse Resp B/P (MAP) Pulse Ox O2 O2 Flow FiO2 Time Delivery Rate 11/07/18 110 22 114/78 98 Mechanical 06:00 (90) Ventilator 11/07/18 45 05:25 11/07/18 98.8 04:00 11/05/18 15.0 03:21 Intake and Output 11/06/18 11/06/18 11/07/18 1515:00 23:00 07:00 IntakeIntake Total 440 ml 350 ml 340 ml OutputOutput Total 181 ml 387 ml 210 ml BalanceBalance 259 ml -37 ml 130 ml Exam ENMT: intubated Neck: supple, non-tender Respiratory: congested cough, crackles/rales, diminished breath sounds Cardiovascular: regular rate and rhythm, nl pulses Gastrointestinal: soft, non-tender Musculoskeletal: muscle weakness, swelling Extremities: normal pulses Neurological: unresponsive, other (intubated on ventilator ) Skin: nl turgor Lymph: nl lymph nodes Results Result Diagram: 11/07/18 0440 11/07/18 0440 Results 24hrs Laboratory Tests Test 11/07/18 04:40 White Blood Count 10.3 # Red Blood Count 2.74 L Hemoglobin 8.9 L Hematocrit 26.1 L Mean Corpuscular Volume 95.3 Mean Corpuscular Hemoglobin 32.5 Mean Corpuscular Hemoglobin Concent 34.1 Red Cell Distribution Width 13.4 Platelet Count 177 Mean Platelet Volume 11.3 H Immature Granulocytes % 0.700 H Neutrophils % 86.0 H Lymphocytes % 6.4 L Monocytes % 6.6 Eosinophils % 0.0 Basophils % 0.3 Nucleated Red Blood Cells % 0.0 Immature Granulocytes # 0.070 H Neutrophils # 8.9 H Lymphocytes # 0.7 L Monocytes # 0.7 Eosinophils # 0.0 Basophils # 0.0 Nucleated Red Blood Cells # 0.0 Prothrombin Time 14.2 Prothrombin Time Ratio 1.1 INR International Normalized Ratio 1.09 Activated Partial Thromboplast Time 35.4 H Sodium Level 139 Potassium Level 3.3 L Chloride Level 111 H Carbon Dioxide Level 19 L Anion Gap 9 Blood Urea Nitrogen 68 H Creatinine 5.47 H Est Glomerular Filtrat Rate mL/min 11 L Glucose Level 161 Calcium Level 8.1 L Magnesium Level 2.3 Total Bilirubin 0.1 L Direct Bilirubin 0.00 Indirect Bilirubin 0.1 Aspartate Amino Transf (AST/SGOT) 16 Alanine Aminotransferase (ALT/SGPT) 13 Alkaline Phosphatase 66 Total Protein 6.0 L Albumin 2.7 L Globulin 3.30 H Albumin/Globulin Ratio 0.81 Medications Medication Current Medications Morphine Sulfate (morphine) 2 mg Q4H PRN IV PAIN LEVEL 7-10; Start 11/05/18 at 05:00 Famotidine (Pepcid Iv) 20 mg DAILY IV Last administered on 11/06/18at 11:02; Admin Dose 20 MG; Start 11/05/18 at 09:00 Midazolam HCl 50 ml @ 1 mls/hr TITRATE IV Last administered on 11/05/18at 09:48; Admin Dose 1 MLS/HR; Start 11/05/18 at 08:30 Sodium Chloride 1,000 ml @ 40 mls/hr Q24H IV Last administered on 11/06/18at 16:17; Admin Dose 40 MLS/HR; Start 11/05/18 at 12:30 Thiamine HCl (Vitamin B1) 100 mg DAILY NGT Last administered on 11/06/18at 11:0 2; Admin Dose 100 MG; Start 11/05/18 at 12:30 Labetalol HCl (Normodyne) 100 mg BID NGT Last administered on 11/06/18at 21:33; Admin Dose 100 MG; Start 11/05/18 at 12:30 Nifedipine (Procardia) 20 mg Q6 NGT Last administered on 11/07/18at 05:58; Admin Dose 20 MG; Start 11/05/18 at 12:30 Ondansetron HCl (Zofran Inj) 4 mg Q4H PRN IV NAUSEA AND/OR VOMITING; Start 11/05/18 at 12:30 Albuterol (Proventil 0.083% (Neb)) 1.25 mg Q2H RESP THERAPY PRN HHN WHEEZING AND SOB; Start 11/05/18 at 12:30 Nicardipine HCl 25 mg/Sodium Chloride 250 ml @ 0 mls/hr TITRATE IV ; Start 11/05/18 at 16:00 DAINA LYONS MD November 07, 2018 08:02
[2018-11-07] MEDS: LABETALOL 100 MG TAB NGT SCH ×2 (08:38→21:01)
[2018-11-07] MEDS: THIAMINE 100 MG TAB NGT SCH (08:38)
[2018-11-07] MEDS: FAMOTIDINE 20 MG INJ IV SCH (08:38)
[2018-11-07] MEDS: morphine 2 MG INJ IV PRN (08:40)
--- NOTE | 2018-11-07 10:19 | CONS ---
Assessment/Plan Assessment/Plan Hospital Course 58 yo M with hx of uncontrolled HTN, DM, substance abuse and other comorbidities who presents for evaluation of L sided weakness and vomiting. Noted on HCT to have a thalamic hemorrhage with extension into the ventricles. The etiology is likely to be a hypertensive hemorrhage in the context of illicit substance abuse Secondary hemorrhage following primary ischemic event is not yet excluded... CTA H/N is without evidence of underlying AVM or aneurysm. Repeat HCT is notable for worsening intraventricular and thalamic hemorrhage with transependymal flow P: Continued management per neurosurgery Limit sedation where possible Hold antiplatelets/anticoagulants in the shortterm MRI brain when medically able Will follow clinically Consultation Date/Type/Reason Admit Date/Time November 05, 2018 at 03:49 Type of Consult Neurology Requesting Provider: EDUARDO ASENCIO Date/Time of Note DATE: 11/07/18 TIME: 10:16 24 HR Interval Summary Free Text/Dictation Continues critical care. Pt made DNR yesterday and [facility] consulted. Subjective hx not possible: pt non-verbal, pt critical Exam Vital Signs Vitals Vital Signs Date Temp Pulse Resp B/P (MAP) Pulse Ox O2 O2 Flow FiO2 Time Delivery Rate 11/07/18 98.8 89 19 133/83 98 Mechanical 08:00 (100) Ventilator 11/07/18 45 05:25 11/05/18 15.0 03:21 Intake and Output 11/06/18 11/06/18 11/07/18 1515:00 23:00 07:00 IntakeIntake Total 440 ml 350 ml 340 ml OutputOutput Total 181 ml 387 ml 225 ml BalanceBalance 259 ml -37 ml 115 ml Exam PE: Gen Appearance: No Apparent Distress HEENT: Intubated; L frontal EVD Cardiovascular: Regular rate Abdomen: Soft Extremities: Dry NE: The patient was lethargic. Nonverbal d/t ETT. Able to open eyes to voice and follow simple appendicular commands. Cranial nerve examination was limited by mental status. R pupil was pinpoint; L pupil had a cataract. There was no afferent pupillary defect. Funduscopic examination was limited. Face was grossly symmetric, w/ present corneal and cough reflexes. Tone was normal. Muscle bulk was normal. I did not see fasciculations. The patient was spastic in his L arm, spontaneously moved his R arm and wiggled his toes BL to command. Coordination and gait testing was limited by mental status. Arm and leg reflexes were within normal limits and symmetric. Jaeger's sign was absent. Plantar responses were flexor. LUZ ALBARADO NP November 07, 2018 10:19
--- NOTE | 2018-11-07 13:23 | CONS ---
Consult Date/Type/Reason Admit Date/Time November 05, 2018 at 03:49 Initial Consult Date 11/05/18 Requesting Provider: EDUARDO ASENCIO Date/Time of Note DATE: 11/07/18 TIME: 13:21 Subjective Appears to have some purposeful movements on the vent. Objective Vitals Vital Signs Date Temp Pulse Resp B/P (MAP) Pulse Ox O2 O2 Flow FiO2 Time Delivery Rate 11/07/18 78 17 127/78 98 Mechanical 13:00 (94) Ventilator 11/07/18 45 12:00 11/07/18 98.5 12:00 11/05/18 15.0 03:21 Intake and Output 11/06/18 11/06/18 11/07/18 1414:59 22:59 06:59 IntakeIntake Total 440 ml 350 ml 380 ml OutputOutput Total 164 ml 381 ml 240 ml BalanceBalance 276 ml -31 ml 140 ml Exam HEENT: Pupils are equal and react to light, orally intubated. NECK: Supple, no JVD noted, no cervical adenopathy noted. LUNGS: Fair breath sounds bilaterally. CARDIOVASCULAR: S1, S2 normal. ABDOMEN: Soft, nontender, no megaly or masses noted. EXTREMITIES: No clubbing or cyanosis noted. NEUROLOGIC: Minimal purposeful movements noted. Results/Medications Result Diagram: 11/07/18 0440 11/07/18 0440 Results 24 hrs Laboratory Tests Test 11/07/18 04:40 White Blood Count 10.3 # Red Blood Count 2.74 L Hemoglobin 8.9 L Hematocrit 26.1 L Mean Corpuscular Volume 95.3 Mean Corpuscular Hemoglobin 32.5 Mean Corpuscular Hemoglobin Concent 34.1 Red Cell Distribution Width 13.4 Platelet Count 177 Mean Platelet Volume 11.3 H Immature Granulocytes % 0.700 H Neutrophils % 86.0 H Lymphocytes % 6.4 L Monocytes % 6.6 Eosinophils % 0.0 Basophils % 0.3 Nucleated Red Blood Cells % 0.0 Immature Granulocytes # 0.070 H Neutrophils # 8.9 H Lymphocytes # 0.7 L Monocytes # 0.7 Eosinophils # 0.0 Basophils # 0.0 Nucleated Red Blood Cells # 0.0 Prothrombin Time 14.2 Prothrombin Time Ratio 1.1 INR International Normalized Ratio 1.09 Activated Partial Thromboplast Time 35.4 H Sodium Level 139 Potassium Level 3.3 L Chloride Level 111 H Carbon Dioxide Level 19 L Anion Gap 9 Blood Urea Nitrogen 68 H Creatinine 5.47 H Est Glomerular Filtrat Rate mL/min 11 L Glucose Level 161 Calcium Level 8.1 L Magnesium Level 2.3 Total Bilirubin 0.1 L Direct Bilirubin 0.00 Indirect Bilirubin 0.1 Aspartate Amino Transf (AST/SGOT) 16 Alanine Aminotransferase (ALT/SGPT) 13 Alkaline Phosphatase 66 Total Protein 6.0 L Albumin 2.7 L Globulin 3.30 H Albumin/Globulin Ratio 0.81 Home Meds Active Scripts Linagliptin (TRADJENTA) 5 Mg Tablet, 5 MG PO QAM for glucose for 30 Days, #30 TAB Prov:QI MÁRQUEZ MD 03/28/18 Doxazosin Mesylate* (Cardura*) 4 Mg Tablet, 4 MG PO HS for 30 Days, #30 TAB For blood pressure control and prostate Prov:QI MÁRQUEZ MD 03/28/18 Atorvastatin* (Atorvastatin*) 80 Mg Tablet, 80 MG PO HS for 30 Days, #30 TAB Prov:QI MÁRQUEZ MD 03/28/18 Medications Current Medications Morphine Sulfate (morphine) 2 mg Q4H PRN IV PAIN LEVEL 7-10 Last administered on 11/07/18 08:40; Admin Dose 2 MG; Start 11/05/18 at 05:00 Famotidine (Pepcid Iv) 20 mg DAILY IV Last administered on 11/07/18 08:38; Admin Dose 20 MG; Start 11/05/18 at 09:00 Midazolam HCl 50 ml @ 1 mls/hr TITRATE IV Last administered on 11/05/18 09:48; Admin Dose 1 MLS/HR; Start 11/05/18 at 08:30 Sodium Chloride 1,000 ml @ 40 mls/hr Q24H IV Last administered on 11/06/18 16:17; Admin Dose 40 MLS/HR; Start 11/05/18 at 12:30 Thiamine HCl (Vitamin B1) 100 mg DAILY NGT Last administered on 11/07/18 08:38; Admin Dose 100 MG; Start 11/05/18 at 12:30 Labetalol HCl (Normodyne) 100 mg BID NGT Last administered on 11/07/18 08:38; Admin Dose 100 MG; Start 11/05/18 at 12:30 Nifedipine (Procardia) 20 mg Q6 NGT Last administered on 11/07/18at 05:58; Admin Dose 20 MG; Start 11/05/18 at 12:30 Ondansetron HCl (Zofran Inj) 4 mg Q4H PRN IV NAUSEA AND/OR VOMITING; Start 11/05/18 at 12:30 Albuterol (Proventil 0.083% (Neb)) 1.25 mg Q2H RESP THERAPY PRN HHN WHEEZING AND SOB; Start 11/05/18 at 12:30 Nicardipine HCl 25 mg/Sodium Chloride 250 ml @ 0 mls/hr TITRATE IV ; Start 11/05/18 at 16:00 Assessment/Plan Assessment/Plan (Daily) IMP: 1. Acute hypoxemic respiratory failure/Vent Dependence 2. Intracranial bleed, status post ventriculostomy. 3. Hypertensive crisis. 4. History of prior cerebrovascular accident with left-sided weakness. 5. Cocaine positive in the urine screen. 6. Encephalopathy. 7. Acute on chronic renal failure RECS: 1. Continue current supportive measures 2. Family to discuss prognosis in more detail with Neurosurgery after which time they will consider transition to comfort measures. 40 min cc time MANJEET SANTAMARIA MD November 07, 2018 13:23
--- NOTE | 2018-11-07 13:35 | PN ---
Date/Time of Note Date/Time of Note DATE: 11/07/18 TIME: 13:32 Assessment/Plan VTE Prophylaxis Risk score (from Ns)>0 risk: 5 [place] [facility] [place] SCD contraindicated: low risk/ambulating Pharmacological prophylaxis: NA/contraindicated Pharm contraindication: bleeding Lines/Catheters IV [facility] Peripheral IV Urinary Cath still in place: Yes Reason Cath still needed: urinary retention Assessment/Plan Hospital Course A/P 1. Ac ICH/ IVH, poor prognosis, sp [employer] shunt. Repeat CT worsening herniation, consider comfort care. Presently DNR 2. Hypertensive emergency 3. Cocaine abuse 4. Tobacco abuse 5. 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 Acute respiratory failure, hypoxic cont vent 7. Failure to thrive 8. Diabetes 10. Acute renal failure; CKD stage III-IV; not sure if HD would be something he'd want. 11. Dyslipidemia not at goal 12. H/o Stroke/ tia 13. BPH 14. S: /10 events noted patient remains vent dependent with elevated blood pressure. Family at bedside updated. Seizures. /: No events remains on life support. Agrees to DNR 11/07: no seizures. remains on vent. bp stable. O: Sr PE No pallor droop. Sluggish rt pupil maybe 3 mm. Lt with cataract? Reg no m/r/g Clear Benign no abd bruits Babinski's on right; left neutral Result Diagram: 11/07/18 0440 11/07/18 0440 Results 24hrs Laboratory Tests Test 11/07/18 04:40 White Blood Count 10.3 # Red Blood Count 2.74 L Hemoglobin 8.9 L Hematocrit 26.1 L Mean Corpuscular Volume 95.3 Mean Corpuscular Hemoglobin 32.5 Mean Corpuscular Hemoglobin Concent 34.1 Red Cell Distribution Width 13.4 Platelet Count 177 Mean Platelet Volume 11.3 H Immature Granulocytes % 0.700 H Neutrophils % 86.0 H Lymphocytes % 6.4 L Monocytes % 6.6 Eosinophils % 0.0 Basophils % 0.3 Nucleated Red Blood Cells % 0.0 Immature Granulocytes # 0.070 H Neutrophils # 8.9 H Lymphocytes # 0.7 L Monocytes # 0.7 Eosinophils # 0.0 Basophils # 0.0 Nucleated Red Blood Cells # 0.0 Prothrombin Time 14.2 Prothrombin Time Ratio 1.1 INR International Normalized Ratio 1.09 Activated Partial Thromboplast Time 35.4 H Sodium Level 139 Potassium Level 3.3 L Chloride Level 111 H Carbon Dioxide Level 19 L Anion Gap 9 Blood Urea Nitrogen 68 H Creatinine 5.47 H Est Glomerular Filtrat Rate mL/min 11 L Glucose Level 161 Calcium Level 8.1 L Magnesium Level 2.3 Total Bilirubin 0.1 L Direct Bilirubin 0.00 Indirect Bilirubin 0.1 Aspartate Amino Transf (AST/SGOT) 16 Alanine Aminotransferase (ALT/SGPT) 13 Alkaline Phosphatase 66 Total Protein 6.0 L Albumin 2.7 L Globulin 3.30 H Albumin/Globulin Ratio 0.81 Exam/Review of Systems Exam Vitals Vital Signs Date Temp Pulse Resp B/P (MAP) Pulse Ox O2 O2 Flow FiO2 Time Delivery Rate 11/07/18 78 17 127/78 98 Mechanical 13:00 (94) Ventilator 11/07/18 45 12:00 11/07/18 98.5 12:00 11/05/18 15.0 03:21 Intake and Output 11/06/18 11/06/18 11/07/18 1515:00 23:00 07:00 IntakeIntake Total 440 ml 350 ml 380 ml OutputOutput Total 181 ml 387 ml 240 ml BalanceBalance 259 ml -37 ml 140 ml Results Results 24hrs Laboratory Tests Test 11/07/18 04:40 White Blood Count 10.3 # Red Blood Count 2.74 L Hemoglobin 8.9 L Hematocrit 26.1 L Mean Corpuscular Volume 95.3 Mean Corpuscular Hemoglobin 32.5 Mean Corpuscular Hemoglobin Concent 34.1 Red Cell Distribution Width 13.4 Platelet Count 177 Mean Platelet Volume 11.3 H Immature Granulocytes % 0.700 H Neutrophils % 86.0 H Lymphocytes % 6.4 L Monocytes % 6.6 Eosinophils % 0.0 Basophils % 0.3 Nucleated Red Blood Cells % 0.0 Immature Granulocytes # 0.070 H Neutrophils # 8.9 H Lymphocytes # 0.7 L Monocytes # 0.7 Eosinophils # 0.0 Basophils # 0.0 Nucleated Red Blood Cells # 0.0 Prothrombin Time 14.2 Prothrombin Time Ratio 1.1 INR International Normalized Ratio 1.09 Activated Partial Thromboplast Time 35.4 H Sodium Level 139 Potassium Level 3.3 L Chloride Level 111 H Carbon Dioxide Level 19 L Anion Gap 9 Blood Urea Nitrogen 68 H Creatinine 5.47 H Est Glomerular Filtrat Rate mL/min 11 L Glucose Level 161 Calcium Level 8.1 L Magnesium Level 2.3 Total Bilirubin 0.1 L Direct Bilirubin 0.00 Indirect Bilirubin 0.1 Aspartate Amino Transf (AST/SGOT) 16 Alanine Aminotransferase (ALT/SGPT) 13 Alkaline Phosphatase 66 Total Protein 6.0 L Albumin 2.7 L Globulin 3.30 H Albumin/Globulin Ratio 0.81 Medications Medication Current Medications Morphine Sulfate (morphine) 2 mg Q4H PRN IV PAIN LEVEL 7-10 Last administered on 11/07/18 08:40; Admin Dose 2 MG; Start 11/05/18 at 05:00 Famotidine (Pepcid Iv) 20 mg DAILY IV Last administered on 11/07/18 08:38; Admin Dose 20 MG; Start 11/05/18 at 09:00 Midazolam HCl 50 ml @ 1 mls/hr TITRATE IV Last administered on 11/05/18 09:48; Admin Dose 1 MLS/HR; Start 11/05/18 at 08:30 Sodium Chloride 1,000 ml @ 40 mls/hr Q24H IV Last administered on 11/06/18 16:17; Admin Dose 40 MLS/HR; Start 11/05/18 at 12:30 Thiamine HCl (Vitamin B1) 100 mg DAILY NGT Last administered on 11/07/18 08:38; Admin Dose 100 MG; Start 11/05/18 at 12:30 Labetalol HCl (Normodyne) 100 mg BID NGT Last administered on 11/07/18 08:38; Admin Dose 100 MG; Start 11/05/18 at 12:30 Nifedipine (Procardia) 20 mg Q6 NGT Last administered on 11/07/18 13:24; Admin Dose 20 MG; Start 11/05/18 at 12:30 Ondansetron HCl (Zofran Inj) 4 mg Q4H PRN IV NAUSEA AND/OR VOMITING; Start 11/05/18 at 12:30 Albuterol (Proventil 0.083% (Neb)) 1.25 mg Q2H RESP THERAPY PRN HHN WHEEZING AND SOB; Start 11/05/18 at 12:30 Nicardipine HCl 25 mg/Sodium Chloride 250 ml @ 0 mls/hr TITRATE IV ; Start 11/05/18 at 16:00 JOHN URIBE MD November 07, 2018 13:35
[2018-11-07] MEDS: D5W-0.45 NACL + KCL 10 MEQ 1,000 ML IV SCH (16:27)
[2018-11-07] MEDS: LABETALOL HCL 20MG INJ IV PRN (16:34)
[2018-11-08] VITALS (69 sets, daily range): BP systolic 108–182; BP diastolic 66–101; PULSE 74–108; RESP 16–27
[2018-11-08] MEDS: NIFEdipine 10 MG CAP NGT SCH ×5 (00:07→23:49)
[2018-11-08] MEDS: LABETALOL HCL 20MG INJ IV PRN (07:24)
--- NOTE | 2018-11-08 09:02 | PN ---
Date/Time of Note Date/Time of Note DATE: 11/08/18 TIME: 09:01 Assessment/Plan VTE Prophylaxis Risk score (from Ns)>0 risk: 5 SCD applied (from Ns): Yes Pharmacological prophylaxis: NA/contraindicated Pharm contraindication: hemorrhagic infarct Lines/Catheters IV Catheter Type (from Nrsg): Peripheral IV Urinary Cath still in place: Yes Reason Cath still needed: terminal illness/intractable pain Assessment/Plan Hospital Course SUBJECTIVE: Remains intubated. OBJECTIVE: Physical Exam General: Adequately build 58 year-old male lying in bed in no apparent distress. HEENT: Normocephalic, left frontal ventriculostomy Eyes: Anicteric sclerae, conjunctivae clear. ENT: Nasal septum midline, oral mucosa is dry. Neck supple, no JVD noticed. Respiratory: Bilaterally diminished breath sounds. ETT to Vent. Cardiovascular: S1, S2 heard. Regular rate and rhythm. Abdomen: Soft, nontender, and nondistended. Bowel sounds positive in all 4 quadrants. Genitourinary: Deferred. Extremities: No cyanosis, no clubbing, no edema. Peripheral pulses palpable. Neurologic: Flaccidity of all 4 extremities. Minimal withdrawal to painful stimuli. Skin: Normal skin turgor. No skin rashes. Labs & Vitals per chart ASSESSMENT & PLAN 58-year-old male with comorbidities including hypertension, CVA with left-sided deficit, chronic kidney disease, and substance abuse who was brought in to the emergency room by family members because of nausea, vomiting and weakness with a brain CT revealing acute intraparenchymal hemorrhage centered in the right thalamus with intraventricular extension, who was admitted to inpatient setting for further treatment and evaluation. 1. Hypertensive intracerebral hemorrhage; intraventricular hemorrhage; obstructive hydrocephalus; brain herniation. -Status post left frontal ventriculostomy placement on 11/05/2018. -Remains on ventilator. -Poor prognosis. -Patient is a DNR. 2. Hypertensive emergency. -Currently blood pressure fairly well controlled on routine medications. 3. Acute on chronic kidney disease. -Being followed by nephrology. 4. Acute hypoxic respiratory failure. -Ventilator management as per pulmonology. 5. Normocytic, normochromic anemia. -Monitor H&H closely. 6. Diabetes mellitus. -Latest hemoglobin A1c 6.8. -Monitor glycemic trends. 7. BPH. -Currently has a Quinn catheter in place. 8. Fluids, electrolytes, and nutrition. -N.p.o. -IVFs. 9. DVT prophylaxis -B/L SCDs. 10. Plan. -Poor prognosis. -The patient is a DNR. -Family planning on initiating comfort measures. The patient was seen in collaboration with Dr. Byrd. Result Diagram: 11/08/1820 11/08/1820 Results 24hrs Laboratory Tests Test 11/08/18 05:20 White Blood Count 8.8 Red Blood Count 3.24 L Hemoglobin 10.2 L Hematocrit 30.2 L Mean Corpuscular Volume 93.2 Mean Corpuscular Hemoglobin 31.5 Mean Corpuscular Hemoglobin Concent 33.8 Red Cell Distribution Width 13.3 Platelet Count 211 Mean Platelet Volume 11.5 H Immature Granulocytes % 0.500 H Neutrophils % 82.2 H Lymphocytes % 8.2 L Monocytes % 8.0 Eosinophils % 0.3 Basophils % 0.8 Nucleated Red Blood Cells % 0.0 Immature Granulocytes # 0.040 H Neutrophils # 7.2 Lymphocytes # 0.7 L Monocytes # 0.7 Eosinophils # 0.0 Basophils # 0.1 Nucleated Red Blood Cells # 0.0 Sodium Level 141 Potassium Level 3.2 L Chloride Level 112 H Carbon Dioxide Level 16 L Anion Gap 13 Blood Urea Nitrogen 77 H Creatinine 5.87 H Est Glomerular Filtrat Rate mL/min 10 L Glucose Level 184 Calcium Level 8.1 L Phosphorus Level 6.8 H Magnesium Level 2.7 H Exam/Review of Systems Exam Vitals Vital Signs Date Temp Pulse Resp B/P (MAP) Pulse Ox O2 O2 Flow FiO2 Time Delivery Rate 11/08/18 77 18 150/82 95 07:30 (104) 11/08/18 45 05:40 11/08/18 Mechanical 05:00 Ventilator 11/08/18 99.8 00:00 11/05/18 15.0 03:21 Intake and Output 11/07/18 11/07/18 11/08/18 1515:00 23:00 07:00 IntakeIntake Total 390 ml 350 ml 300 ml OutputOutput Total 317 ml 247 ml 334 ml BalanceBalance 73 ml 103 ml -34 ml Results Results 24hrs Laboratory Tests Test 11/08/18 05:20 White Blood Count 8.8 Red Blood Count 3.24 L Hemoglobin 10.2 L Hematocrit 30.2 L Mean Corpuscular Volume 93.2 Mean Corpuscular Hemoglobin 31.5 Mean Corpuscular Hemoglobin Concent 33.8 Red Cell Distribution Width 13.3 Platelet Count 211 Mean Platelet Volume 11.5 H Immature Granulocytes % 0.500 H Neutrophils % 82.2 H Lymphocytes % 8.2 L Monocytes % 8.0 Eosinophils % 0.3 Basophils % 0.8 Nucleated Red Blood Cells % 0.0 Immature Granulocytes # 0.040 H Neutrophils # 7.2 Lymphocytes # 0.7 L Monocytes # 0.7 Eosinophils # 0.0 Basophils # 0.1 Nucleated Red Blood Cells # 0.0 Sodium Level 141 Potassium Level 3.2 L Chloride Level 112 H Carbon Dioxide Level 16 L Anion Gap 13 Blood Urea Nitrogen 77 H Creatinine 5.87 H Est Glomerular Filtrat Rate mL/min 10 L Glucose Level 184 Calcium Level 8.1 L Phosphorus Level 6.8 H Magnesium Level 2.7 H Medications Medication Current Medications Morphine Sulfate (morphine) 2 mg Q4H PRN IV PAIN LEVEL 7-10 Last administered on 11/07/18 08:40; Admin Dose 2 MG; Start 11/05/18 at 05:00 Famotidine (Pepcid Iv) 20 mg DAILY IV Last administered on 11/07/18 08:38; Admin Dose 20 MG; Start 11/05/18 at 09:00 Midazolam HCl 50 ml @ 1 mls/hr TITRATE IV Last administered on 11/05/18 09:48; Admin Dose 1 MLS/HR; Start 11/05/18 at 08:30 Thiamine HCl (Vitamin B1) 100 mg DAILY NGT Last administered on 11/07/18 08:38; Admin Dose 100 MG; Start 11/05/18 at 12:30 Labetalol HCl (Normodyne) 100 mg BID NGT Last administered on 11/07/18 21:01; Admin Dose 100 MG; Start 11/05/18 at 12:30 Nifedipine (Procardia) 20 mg Q6 NGT Last administered on 11/08/18 00:07; Admin Dose 20 MG; Start 11/05/18 at 12:30 Ondansetron HCl (Zofran Inj) 4 mg Q4H PRN IV NAUSEA AND/OR VOMITING; Start 11/05/18 at 12:30 Albuterol (Proventil 0.083% (Neb)) 1.25 mg Q2H RESP THERAPY PRN HHN WHEEZING AND SOB; Start 11/05/18 at 12:30 Nicardipine HCl 25 mg/Sodium Chloride 250 ml @ 0 mls/hr TITRATE IV ; Start 04/16 at 16:00 Labetalol HCl (Labetalol) 10 mg Q4 PRN IV ELEVATED SYSTOLIC BP Last administered on 11/08/18at 07:24; Admin Dose 10 MG; Start 11/07/18 at 13:30 Potassium Chloride/Dextrose/ Sod Cl 1,000 ml @ 50 mls/hr Q20H IV Last administered on 11/07/18at 16:27; Admin Dose 50 MLS/HR; Start 11/07/18 at 15:00 TOMY PRINGLE NP November 08, 2018 09:02
[2018-11-08] MEDS: FAMOTIDINE 20 MG INJ IV SCH (09:27)
[2018-11-08] MEDS: THIAMINE 100 MG TAB NGT SCH (09:27)
[2018-11-08] MEDS: morphine 2 MG INJ IV PRN (09:28)
[2018-11-08] MEDS: LABETALOL 100 MG TAB NGT SCH ×2 (09:28→21:34)
--- NOTE | 2018-11-08 10:03 | CONS ---
Assessment/Plan Assessment/Plan Assessment/Plan (Daily) 1. acute hemorrhagic stroke , Intracerebral hemorrhage with obstructive hydrocephalus s/p ventriculostomy tube placement on 11/05/18 2. Acute on chronic renal failure 2/2 ATN 2. HTN emergency 4. H/o HTN 5. Possibel CKD III 2/2 HTN nephrosclerosis 6. H/o substance abuse, urine drug screen positive for Cocaine Plan: pt remains intubated, pt continues to have deteriorating renal funciton, Urine output dropping, pt is made DNR< and family thinking about comofort care but wa itiing for one family memebr to arrive NIcardipine gtt for BP control and ICH not a candidate for renal replacement therapy due to comorbities and ICH Consultation Date/Type/Reason Admit Date/Time November 05, 2018 at 03:49 Initial Consult Date 11/05/18 Type of Consult NEPHROLOGY Requesting Provider: EDUARDO ASENCIO Date/Time of Note DATE: 11/08/18 TIME: 10:03 Exam/Review of Systems Exam Vitals Vital Signs Date Temp Pulse Resp B/P (MAP) Pulse Ox O2 O2 Flow FiO2 Time Delivery Rate 11/08/18 45 08:00 11/08/18 87 08:00 11/08/18 18 150/82 95 07:30 (104) 11/08/18 Mechanical 05:00 Ventilator 11/08/18 99.8 00:00 11/05/18 15.0 03:21 Intake and Output 11/07/18 11/07/18 11/08/18 1515:00 23:00 07:00 IntakeIntake Total 390 ml 350 ml 350 ml OutputOutput Total 317 ml 247 ml 384 ml BalanceBalance 73 ml 103 ml -34 ml Results Result Diagram: 11/08/18 0520 11/08/18 0520 Results 24hrs Laboratory Tests Test 11/08/18 05:20 White Blood Count 8.8 Red Blood Count 3.24 L Hemoglobin 10.2 L Hematocrit 30.2 L Mean Corpuscular Volume 93.2 Mean Corpuscular Hemoglobin 31.5 Mean Corpuscular Hemoglobin Concent 33.8 Red Cell Distribution Width 13.3 Platelet Count 211 Mean Platelet Volume 11.5 H Immature Granulocytes % 0.500 H Neutrophils % 82.2 H Lymphocytes % 8.2 L Monocytes % 8.0 Eosinophils % 0.3 Basophils % 0.8 Nucleated Red Blood Cells % 0.0 Immature Granulocytes # 0.040 H Neutrophils # 7.2 Lymphocytes # 0.7 L Monocytes # 0.7 Eosinophils # 0.0 Basophils # 0.1 Nucleated Red Blood Cells # 0.0 Sodium Level 141 Potassium Level 3.2 L Chloride Level 112 H Carbon Dioxide Level 16 L Anion Gap 13 Blood Urea Nitrogen 77 H Creatinine 5.87 H Est Glomerular Filtrat Rate mL/min 10 L Glucose Level 184 Calcium Level 8.1 L Phosphorus Level 6.8 H Magnesium Level 2.7 H Medications Medication Current Medications Morphine Sulfate (morphine) 2 mg Q4H PRN IV PAIN LEVEL 7-10 Last administered on 11/08/18 09:28; Admin Dose 2 MG; Start 11/05/18 at 05:00 Famotidine (Pepcid Iv) 20 mg DAILY IV Last administered on 11/08/18 09:27; Admin Dose 20 MG; Start 11/05/18 at 09:00 Midazolam HCl 50 ml @ 1 mls/hr TITRATE IV Last administered on 11/05/18 09:48; Admin Dose 1 MLS/HR; Start 11/05/18 at 08:30 Thiamine HCl (Vitamin B1) 100 mg DAILY NGT Last administered on 11/08/18 09:27; Admin Dose 100 MG; Start 11/05/18 at 12:30 Labetalol HCl (Normodyne) 100 mg BID NGT Last administered on 11/08/18 09:28; Admin Dose 100 MG; Start 11/05/18 at 12:30 Nifedipine (Procardia) 20 mg Q6 NGT Last administered on 11/08/18 09:27; Admin Dose 20 MG; Start 11/05/18 at 12:30 Ondansetron HCl (Zofran Inj) 4 mg Q4H PRN IV NAUSEA AND/OR VOMITING; Start 11/05/18 at 12:30 Albuterol (Proventil 0.083% (Neb)) 1.25 mg Q2H RESP THERAPY PRN HHN WHEEZING AND SOB; Start 11/05/18 at 12:30 Nicardipine HCl 25 mg/Sodium Chloride 250 ml @ 0 mls/hr TITRATE IV ; Start 11/05/18 at 16:00 Labetalol HCl (Labetalol) 10 mg Q4 PRN IV ELEVATED SYSTOLIC BP Last administered on 11/08/18at 07:24; Admin Dose 10 MG; Start 11/07/18 at 13:30 Potassium Chloride/Dextrose/ Sod Cl 1,000 ml @ 50 mls/hr Q20H IV Last administered on 11/07/18at 16:27; Admin Dose 50 MLS/HR; Start 11/07/18 at 15:00 DAINA LYONS MD November 08, 2018 10:03
--- NOTE | 2018-11-08 11:32 | CONS ---
Consult Date/Type/Reason Admit Date/Time November 05, 2018 at 03:49 Initial Consult Date 11/05/18 Type of Consult Pulmonary Requesting Provider: EDUARDO ASENCIO Date/Time of Note DATE: 11/08/18 TIME: 11:31 Subjective Long discussion with family at bedside. States that they wish to transition to comfort care. Objective Vital Signs Date Temp Pulse Resp B/P (MAP) Pulse Ox O2 O2 Flow FiO2 Time Delivery Rate 11/08/18 88 25 130/79 96 11:00 (96) 11/08/18 Mechanical 09:00 Ventilator 11/08/18 45 08:00 11/08/18 98.8 08:00 11/05/18 15.0 03:21 Intake and Output 11/07/18 11/07/18 11/08/18 1414:59 22:59 06:59 IntakeIntake Total 390 ml 340 ml 350 ml OutputOutput Total 287 ml 262 ml 367 ml BalanceBalance 103 ml 78 ml -17 ml Exam HEENT: Pupils are equal and react to light, orally intubated. NECK: Supple, no JVD noted, no cervical adenopathy noted. LUNGS: Fair breath sounds bilaterally. CARDIOVASCULAR: S1, S2 normal. ABDOMEN: Soft, nontender, no megaly or masses noted. EXTREMITIES: No clubbing or cyanosis noted. NEUROLOGIC: Minimal purposeful movements noted. Vent Setting Ventilator Support Mode: AC Fraction of Inspired Oxygen pe: 45 Positive End Expiratory Pressu: 5.0 Results/Medications Result Diagram: 11/08/18 0520 11/08/18 0520 Results 24 hrs Laboratory Tests Test 11/08/18 05:20 White Blood Count 8.8 Red Blood Count 3.24 L Hemoglobin 10.2 L Hematocrit 30.2 L Mean Corpuscular Volume 93.2 Mean Corpuscular Hemoglobin 31.5 Mean Corpuscular Hemoglobin Concent 33.8 Red Cell Distribution Width 13.3 Platelet Count 211 Mean Platelet Volume 11.5 H Immature Granulocytes % 0.500 H Neutrophils % 82.2 H Lymphocytes % 8.2 L Monocytes % 8.0 Eosinophils % 0.3 Basophils % 0.8 Nucleated Red Blood Cells % 0.0 Immature Granulocytes # 0.040 H Neutrophils # 7.2 Lymphocytes # 0.7 L Monocytes # 0.7 Eosinophils # 0.0 Basophils # 0.1 Nucleated Red Blood Cells # 0.0 Sodium Level 141 Potassium Level 3.2 L Chloride Level 112 H Carbon Dioxide Level 16 L Anion Gap 13 Blood Urea Nitrogen 77 H Creatinine 5.87 H Est Glomerular Filtrat Rate mL/min 10 L Glucose Level 184 Calcium Level 8.1 L Phosphorus Level 6.8 H Magnesium Level 2.7 H Medications Current Medications Morphine Sulfate (morphine) 2 mg Q4H PRN IV PAIN LEVEL 7-10 Last administered on 11/08/18 09:28; Admin Dose 2 MG; Start 11/05/18 at 05:00 Famotidine (Pepcid Iv) 20 mg DAILY IV Last administered on 11/08/18 09:27; Admin Dose 20 MG; Start 11/05/18 at 09:00 Midazolam HCl 50 ml @ 1 mls/hr TITRATE IV Last administered on 11/05/18 09:48; Admin Dose 1 MLS/HR; Start 11/05/18 at 08:30 Thiamine HCl (Vitamin B1) 100 mg DAILY NGT Last administered on 11/08/18 0 9:27; Admin Dose 100 MG; Start 11/05/18 at 12:30 Labetalol HCl (Normodyne) 100 mg BID NGT Last administered on 11/08/18 09:28; Admin Dose 100 MG; Start 11/05/18 at 12:30 Nifedipine (Procardia) 20 mg Q6 NGT Last administered on 11/08/18 09:27; Admin Dose 20 MG; Start 11/05/18 at 12:30 Ondansetron HCl (Zofran Inj) 4 mg Q4H PRN IV NAUSEA AND/OR VOMITING; Start 11/05/18 at 12:30 Albuterol (Proventil 0.083% (Neb)) 1.25 mg Q2H RESP THERAPY PRN HHN WHEEZING AND SOB; Start 11/05/18 at 12:30 Nicardipine HCl 25 mg/Sodium Chloride 250 ml @ 0 mls/hr TITRATE IV ; Start 11/05/18 at 16:00 Labetalol HCl (Labetalol) 10 mg Q4 PRN IV ELEVATED SYSTOLIC BP Last administered on 11/08/18 07:24; Admin Dose 10 MG; Start 11/07/18 at 13:30 Potassium Chloride/Dextrose/ Sod Cl 1,000 ml @ 50 mls/hr Q20H IV Last administered on 5/12/19at 16:27; Admin Dose 50 MLS/HR; Start 11/07/18 at 15:00 Assessment/Plan Hospital Course (Demo Recall) IMP: 1. Acute hypoxemic respiratory failure/Vent Dependence 2. Intracranial bleed, status post ventriculostomy. 3. Hypertensive crisis. 4. History of prior cerebrovascular accident with left-sided weakness. 5. Cocaine positive in the urine screen. 6. Encephalopathy. 7. Acute on chronic renal failure RECS: 1. Continue current supportive measures 2. Family requesting transition to comfort care. Talked about hospice and inpatient GIP. Will have hospice team to evaluate and discuss options. 3. Neurosurgery to remove ventriculostomy. 40 min cc time AMBROSIO YAN MD, [facility] November 08, 2018 11:32
[2018-11-08] MEDS: D5W-0.45 NACL + KCL 10 MEQ 1,000 ML IV SCH (11:45)
--- NOTE | 2018-11-08 14:33 | CONS ---
Assessment/Plan Assessment/Plan Hospital Course 58 yo M with hx of uncontrolled HTN, DM, substance abuse and other comorbidities who presents for evaluation of L sided weakness and vomiting. Noted on HCT to have a thalamic hemorrhage with extension into the ventricles. The etiology is likely to be a hypertensive hemorrhage in the context of illicit substance abuse Secondary hemorrhage following primary ischemic event is not yet excluded... CTA H/N is without evidence of underlying AVM or aneurysm. Repeat HCT is notable for worsening intraventricular and thalamic hemorrhage with transependymal flow P: Continued management per neurosurgery Limit sedation where possible Hold antiplatelets/anticoagulants in the short term MRI brain when medically able Will follow clinically Consultation Date/Type/Reason Admit Date/Time November 05, 2018 at 03:49 Type of Consult Neurology Requesting Provider: EUDARDO ASENCIO Date/Time of Note DATE: 11/08/18 TIME: 14:28 24 HR Interval Summary Free Text/Dictation Continues critical care. Family reportedly decided for terminal extubation sometime this week. Exam Vital Signs Vitals Vital Signs Date Temp Pulse Resp B/P (MAP) Pulse Ox O2 O2 Flow FiO2 Time Delivery Rate 11/08/18 82 16 98 45 12:57 11/08/18 110/71 12:15 (84) 11/08/18 98.5 12:00 11/08/18 Mechanical 09:00 Ventilator 11/05/18 15.0 03:21 Intake and Output 11/07/18 11/07/18 11/08/18 1515:00 23:00 07:00 IntakeIntake Total 390 ml 350 ml 350 ml OutputOutput Total 317 ml 247 ml 384 ml BalanceBalance 73 ml 103 ml -34 ml Exam PE: Gen Appearance: No Apparent Distress HEENT: Intubated; L frontal EVD Cardiovascular: Regular rate Abdomen: Soft Extremities: Dry NE: The patient was lethargic. Nonverbal d/t ETT. Able to open eyes to voice. Did not follow commands today. Cranial nerve examination was limited by mental status. R pupil was pinpoint; L pupil had a cataract. There was no afferent pupillary defect. Funduscopic examination was limited. Face was grossly symmetric, w/ present corneal and cough reflexes. Tone was normal. Muscle bulk was normal. I did not see fasciculations. The pat ient was spastic in his L arm; withdrew his other extremities to noxious stimuli Coordination and gait testing was limited by mental status. Arm and leg reflexes were within normal limits and symmetric. Jaeger's sign was absent. Plantar responses were flexor. LUZ ALBARADO NP November 08, 2018 14:33
--- NOTE | 2018-11-08 17:13 | CONS ---
Assessment/Plan Assessment/Plan Assessment/Plan (Daily) Given significant injury, family is considering transitioning to comfort measures. They are not quite ready yet and are considering as a target date. We will redcap or remove the EVD at that time. Will continue to follow. Consultation Date/Type/Reason Admit Date/Time November 05, 2018 at 03:49 Initial Consult Date 11/05/18 Type of Consult Neurosurgery Requesting Provider: EDUARDO ASENCIO Date/Time of Note DATE: 11/08/18 TIME: 17:10 24 HR Interval Summary Free Text/Dictation Some responses to stimulation,but still comatose. EVD draining well Exam/Review of Systems Exam Vitals Vital Signs Date Temp Pulse Resp B/P (MAP) Pulse Ox O2 O2 Flow FiO2 Time Delivery Rate 11/08/18 100 25 97 45 16:52 11/08/18 160/88 16:45 (112) 11/08/18 98.5 16:00 11/08/18 Mechanical 09:00 Ventilator 11/05/18 15.0 03:21 Intake and Output 11/07/18 11/07/18 11/08/18 1515:00 23:00 07:00 IntakeIntake Total 390 ml 350 ml 350 ml OutputOutput Total 317 ml 247 ml 384 ml BalanceBalance 73 ml 103 ml -34 ml Exam EO to stim RUE spont movement BLE withdraw EVD - 15cc/hr @ 5cm H20 Results Result Diagram: 11/08/18 0520 11/08/18 0520 Results 24hrs Laboratory Tests Test 11/08/18 05:20 White Blood Count 8.8 Red Blood Count 3.24 L Hemoglobin 10.2 L Hematocrit 30.2 L Mean Corpuscular Volume 93.2 Mean Corpuscular Hemoglobin 31.5 Mean Corpuscular Hemoglobin Concent 33.8 Red Cell Distribution Width 13.3 Platelet Count 211 Mean Platelet Volume 11.5 H Immature Granulocytes % 0.500 H Neutrophils % 82.2 H Lymphocytes % 8.2 L Monocytes % 8.0 Eosinophils % 0.3 Basophils % 0.8 Nucleated Red Blood Cells % 0.0 Immature Granulocytes # 0.040 H Neutrophils # 7.2 Lymphocytes # 0.7 L Monocytes # 0.7 Eosinophils # 0.0 Basophils # 0.1 Nucleated Red Blood Cells # 0.0 Sodium Level 141 Potassium Level 3.2 L Chloride Level 112 H Carbon Dioxide Level 16 L Anion Gap 13 Blood Urea Nitrogen 77 H Creatinine 5.87 H Est Glomerular Filtrat Rate mL/min 10 L Glucose Level 184 Calcium Level 8.1 L Phosphorus Level 6.8 H Magnesium Level 2.7 H Medications Medication Current Medications Morphine Sulfate (morphine) 2 mg Q4H PRN IV PAIN LEVEL 7-10 Last administered on 11/08/18 09:28; Admin Dose 2 MG; Start 11/05/18 at 05:00 Famotidine (Pepcid Iv) 20 mg DAILY IV Last administered on 11/08/18 09:27; Admin Dose 20 MG; Start 11/05/18 at 09:00 Midazolam HCl 50 ml @ 1 mls/hr TITRATE IV Last administered on 11/05/18 09:48; Admin Dose 1 MLS/HR; Start 11/05/18 at 08:30 Thiamine HCl (Vitamin B1) 100 mg DAILY NGT Last administered on 11/08/18 09:27; Admin Dose 100 MG; Start 11/05/18 at 12:30 Labetalol HCl (Normodyne) 100 mg BID NGT Last administered on 11/08/18 09:28; Admin Dose 100 MG; Start 11/05/18 at 12:30 Nifedipine (Procardia) 20 mg Q6 NGT Last administered on 11/08/18 11:50; Admin Dose 20 MG; Start 11/05/18 at 12:30 Ondansetron HCl (Zofran Inj) 4 mg Q4H PRN IV NAUSEA AND/OR VOMITING; Start 11/05/18 at 12:30 Albuterol (Proventil 0.083% (Neb)) 1.25 mg Q2H RESP THERAPY PRN HHN WHEEZING AND SOB; Start 11/05/18 at 12:30 Nicardipine HCl 25 mg/Sodium Chloride 250 ml @ 0 mls/hr TITRATE IV ; Start 11/05/18 at 16:00 Labetalol HCl (Labetalol) 10 mg Q4 PRN IV ELEVATED SYSTOLIC BP Last administered on 11/08/18 07:24; Admin Dose 10 MG; Start 11/07/18 at 13:30 Potassium Chloride/Dextrose/ Sod Cl 1,000 ml @ 50 mls/hr Q20H IV Last administered on 11/08/18 11:45; Admin Dose 50 MLS/HR; Start 11/07/18 at 15:00 LATANYA CONNELL MD November 08, 2018 17:13
[2018-11-09] VITALS (33 sets, daily range): BP systolic 116–157; BP diastolic 68–100; PULSE 83–108; RESP 19–38
[2018-11-09] MEDS: NIFEdipine 10 MG CAP NGT SCH ×3 (05:46→18:56)
[2018-11-09] MEDS: D5W-0.45 NACL + KCL 10 MEQ 1,000 ML IV SCH ×2 (05:46→22:50)
[2018-11-09] MEDS: THIAMINE 100 MG TAB NGT SCH (08:08)
[2018-11-09] MEDS: LABETALOL 100 MG TAB NGT SCH ×2 (08:08→20:39)
[2018-11-09] MEDS: FAMOTIDINE 20 MG INJ IV SCH (08:08)
[2018-11-09] MEDS: LABETALOL HCL 20MG INJ IV PRN (08:17)
--- NOTE | 2018-11-09 08:51 | PN ---
Date/Time of Note Date/Time of Note DATE: 11/09/18 TIME: 08:51 Assessment/Plan VTE Prophylaxis Risk score (from Ns)>0 risk: 6 SCD applied (from Ns): Yes Pharmacological prophylaxis: NA/contraindicated Pharm contraindication: bleeding Lines/Catheters IV [facility] Type [facility] Peripheral IV Urinary Cath still in place: No Assessment/Plan Hospital Course SUBJECTIVE: Remains intubated. OBJECTIVE: Physical Exam General: Adequately build 58 year-old male lying in bed in no apparent distress. HEENT: Normocephalic, left frontal ventriculostomy Eyes: Anicteric sclerae, conjunctivae clear. ENT: Nasal septum midline, oral mucosa is dry. Neck supple, no JVD noticed. Respiratory: Bilaterally diminished breath sounds. ETT to Vent. Cardiovascular: S1, S2 heard. Regular rate and rhythm. Abdomen: Soft, nontender, and nondistended. Bowel sounds positive in all 4 quadrants. Genitourinary: Deferred. Extremities: No cyanosis, no clubbing, no edema. Peripheral pulses palpable. Neurologic: Flaccidity of all 4 extremities. Minimal withdrawal to painful stimuli of B/L LE. Skin: Normal skin turgor. No skin rashes. Labs & Vitals per chart ASSESSMENT & PLAN 58-year-old male with comorbidities including hypertension, CVA with left-sided deficit, chronic kidney disease, and substance abuse who was brought in to the emergency room by family members because of nausea, vomiting and weakness with a brain CT revealing acute intraparenchymal hemorrhage centered in the right thalamus with intraventricular extension, who was admitted to inpatient setting for further treatment and evaluation. 1. Hypertensive intracerebral hemorrhage; intraventricular hemorrhage; obstructive hydrocephalus; brain herniation. -Status post left frontal ventriculostomy placement on 11/05/2018. -Remains on ventilator. -Poor prognosis. -Patient is a DNR. 2. Hypertensive emergency. -Currently blood pressure fairly well controlled on routine medications. 3. Acute on chronic kidney disease. -Being followed by nephrology. 4. Acute hypoxic respiratory failure. -Ventilator management as per pulmonology. 5. Normocytic, normochromic anemia. -Monitor H&H closely. 6. Diabetes mellitus. -Latest hemoglobin A1c 6.8. -Monitor glycemic trends. 7. BPH. -Currently has a Quinn catheter in place. 8. Fluids, electrolytes, and nutrition. -N.p.o. -IVFs. 9. DVT prophylaxis -B/L SCDs. 10. Plan. -Poor prognosis. -The patient is a DNR. -Family planning on initiating comfort measures. The patient was seen in collaboration with Dr. Byrd. Result Diagram: 11/09/18 0446 11/09/18 0446 Results 24hrs Laboratory Tests Test 11/09/18 04:46 White Blood Count 10.1 Red Blood Count 3.07 L Hemoglobin 9.9 L Hematocrit 28.9 L Mean Corpuscular Volume 94.1 Mean Corpuscular Hemoglobin 32.2 Mean Corpuscular Hemoglobin Concent 34.3 Red Cell Distribution Width 13.1 Platelet Count 226 Mean Platelet Volume 11.6 H Immature Granulocytes % 0.400 Neutrophils % 85.8 H Lymphocytes % 4.2 L Monocytes % 9.0 Eosinophils % 0.2 Basophils % 0.4 Nucleated Red Blood Cells % 0.0 Immature Granulocytes # 0.040 H Neutrophils # 8.6 H Lymphocytes # 0.4 L Monocytes # 0.9 Eosinophils # 0.0 Basophils # 0.0 Nucleated Red Blood Cells # 0.0 Sodium Level 141 Potassium Level 3.5 Chloride Level 112 H Carbon Dioxide Level 16 L Anion Gap 13 Blood Urea Nitrogen 88 H Creatinine 5.60 H Est Glomerular Filtrat Rate mL/min 11 L Glucose Level 198 Calcium Level 8.1 L Phosphorus Level 6.0 H Magnesium Level 2.6 H Exam/Review of Systems Exam Vitals Vital Signs Date Temp Pulse Resp B/P (MAP) Pulse Ox O2 O2 Flow FiO2 Time Delivery Rate 11/09/18 99.2 103 28 157/82 95 Mechanical 08:00 (107) Ventilator 11/09/18 45 05:04 Intake and Output 11/08/18 11/08/18 11/09/18 1515:00 23:00 07:00 IntakeIntake Total 520 ml 460 ml 400 ml OutputOutput Total 495 ml 357 ml 290 ml BalanceBalance 25 ml 103 ml 110 ml Results Results 24hrs Laboratory Tests Test 11/09/18 04:46 White Blood Count 10.1 Red Blood Count 3.07 L Hemoglobin 9.9 L Hematocrit 28.9 L Mean Corpuscular Volume 94.1 Mean Corpuscular Hemoglobin 32.2 Mean Corpuscular Hemoglobin Concent 34.3 Red Cell Distribution Width 13.1 Platelet Count 226 Mean Platelet Volume 11.6 H Immature Granulocytes % 0.400 Neutrophils % 85.8 H Lymphocytes % 4.2 L Monocytes % 9.0 Eosinophils % 0.2 Basophils % 0.4 Nucleated Red Blood Cells % 0.0 Immature Granulocytes # 0.040 H Neutrophils # 8.6 H Lymphocytes # 0.4 L Monocytes # 0.9 Eosinophils # 0.0 Basophils # 0.0 Nucleated Red Blood Cells # 0.0 Sodium Level 141 Potassium Level 3.5 Chloride Level 112 H Carbon Dioxide Level 16 L Anion Gap 13 Blood Urea Nitrogen 88 H Creatinine 5.60 H Est Glomerular Filtrat Rate mL/min 11 L Glucose Level 198 Calcium Level 8.1 L Phosphorus Level 6.0 H Magnesium Level 2.6 H Medications Medication Current Medications Morphine Sulfate (morphine) 2 mg Q4H PRN IV PAIN LEVEL 7-10 Last administered on 11/08/18 09:28; Admin Dose 2 MG; Start 11/05/18 at 05:00 Famotidine (Pepcid Iv) 20 mg DAILY IV Last administered on 11/09/18 08:08; Admin Dose 20 MG; Start 11/05/18 at 09:00 Midazolam HCl 50 ml @ 1 mls/hr TITRATE IV Last administered on 11/05/18 09:48; Admin Dose 1 MLS/HR; Start 11/05/18 at 08:30 Thiamine HCl (Vitamin B1) 100 mg DAILY NGT Last administered on 11/09/18 08:08; Admin Dose 100 MG; Start 11/05/18 at 12:30 Labetalol HCl (Normodyne) 100 mg BID NGT Last administered on 11/09/18 08:08; Admin Dose 100 MG; Start 11/05/18 at 12:30 Nifedipine (Procardia) 20 mg Q6 NGT Last administered on 11/09/18 05:46; Admin Dose 20 MG; Start 11/05/18 at 12:30 Ondansetron HCl (Zofran Inj) 4 mg Q4H PRN IV NAUSEA AND/OR VOMITING; Start 11/05/18 at 12:30 Albuterol (Proventil 0.083% (Neb)) 1.25 mg Q2H RESP THERAPY PRN HHN WHEEZING AND SOB; Start 11/05/18 at 12:30 Nicardipine HCl 25 mg/Sodium Chloride 250 ml @ 0 mls/hr TITRATE IV ; Start 11/05/18 at 16:00 Labetalol HCl (Labetalol) 10 mg Q4 PRN IV ELEVATED SYSTOLIC BP Last administered on 11/09/18at 08:17; Admin Dose 10 MG; Start 11/07/18 at 13:30 Potassium Chloride/Dextrose/ Sod Cl 1,000 ml @ 50 mls/hr Q20H IV Last administered on 11/09/18at 05:46; Admin Dose 50 MLS/HR; Start 11/07/18 at 15:00 TOMY PRINGLE NP November 09, 2018 08:51
--- NOTE | 2018-11-09 11:21 | CONS ---
Consult Date/Type/Reason Admit Date/Time November 05, 2018 at 03:49 Initial Consult Date 11/05/18 Type of Consult Pulmonary Requesting Provider: EDUARDO ASENCIO Date/Time of Note DATE: 11/09/18 TIME: 11:18 Subjective Patient remains somnolent on mechanical ventilation moderate bloody drainage from ventriculostomy. Objective Vital Signs Date Temp Pulse Resp B/P (MAP) Pulse Ox O2 O2 Flow FiO2 Time Delivery Rate 11/09/18 105 08:00 11/09/18 99.2 28 157/82 95 Mechanical 08:00 (107) Ventilator 11/09/18 45 08:00 Intake and Output 11/08/18 11/08/18 11/09/18 1515:00 23:00 07:00 IntakeIntake Total 520 ml 460 ml 400 ml OutputOutput Total 495 ml 357 ml 290 ml BalanceBalance 25 ml 103 ml 110 ml Exam HEENT: Dry mucous membranes orally intubated ventriculostomy in place NECK: Supple, no JVD noted, no cervical adenopathy noted. LUNGS: Fair breath sounds bilaterally. CARDIOVASCULAR: S1, S2 normal. ABDOMEN: Soft, nontender, no megaly or masses noted. EXTREMITIES: No clubbing or cyanosis noted. NEUROLOGIC: Minimal purposeful movements noted. Vent Setting Ventilator Support Mode: AC Fraction of Inspired Oxygen pe: 45 Positive End Expiratory Pressu: 5.0 Results/Medications Result Diagram: 11/09/18 0446 11/09/18 0446 Results 24 hrs Laboratory Tests Test 11/09/18 04:46 White Blood Count 10.1 Red Blood Count 3.07 L Hemoglobin 9.9 L Hematocrit 28.9 L Mean Corpuscular Volume 94.1 Mean Corpuscular Hemoglobin 32.2 Mean Corpuscular Hemoglobin Concent 34.3 Red Cell Distribution Width 13.1 Platelet Count 226 Mean Platelet Volume 11.6 H Immature Granulocytes % 0.400 Neutrophils % 85.8 H Lymphocytes % 4.2 L Monocytes % 9.0 Eosinophils % 0.2 Basophils % 0.4 Nucleated Red Blood Cells % 0.0 Immature Granulocytes # 0.040 H Neutrophils # 8.6 H Lymphocytes # 0.4 L Monocytes # 0.9 Eosinophils # 0.0 Basophils # 0.0 Nucleated Red Blood Cells # 0.0 Sodium Level 141 Potassium Level 3.5 Chloride Level 112 H Carbon Dioxide Level 16 L Anion Gap 13 Blood Urea Nitrogen 88 H Creatinine 5.60 H Est Glomerular Filtrat Rate mL/min 11 L Glucose Level 198 Calcium Level 8.1 L Phosphorus Level 6.0 H Magnesium Level 2.6 H Medications Current Medications Morphine Sulfate (morphine) 2 mg Q4H PRN IV PAIN LEVEL 7-10 Last administered on 11/08/18 09:28; Admin Dose 2 MG; Start 11/05/18 at 05:00 Midazolam HCl 50 ml @ 1 mls/hr TITRATE IV Last administered on 11/05/18 09:48; Admin Dose 1 MLS/HR; Start 11/05/18 at 08:30 Thiamine HCl (Vitamin B1) 100 mg DAILY NGT Last administered on 11/09/18 08:08; Admin Dose 100 MG; Start 11/05/18 at 12:30 Labetalol HCl (Normodyne) 100 mg BID NGT Last administered on 11/09/18 08:08; Admin Dose 100 MG; Start 11/05/18 at 12:30 Nifedipine (Procardia) 20 mg Q6 NGT Last administered on 11/09/18 05:46; Admin Dose 20 MG; Start 11/05/18 at 12:30 Ondansetron HCl (Zofran Inj) 4 mg Q4H PRN IV NAUSEA AND/OR VOMITING; Start 11/05/18 at 12:30 Albuterol (Proventil 0.083% (Neb)) 1.25 mg Q2H RESP THERAPY PRN HHN WHEEZING AND SOB; Start 11/05/18 at 12:30 Nicardipine HCl 25 mg/Sodium Chloride 250 ml @ 0 mls/hr TITRATE IV ; Start 11/05/18 at 16:00 Labetalol HCl (Labetalol) 10 mg Q4 PRN IV ELEVATED SYSTOLIC BP Last ad ministered on 11/09/18 08:17; Admin Dose 10 MG; Start 11/07/18 at 13:30 Potassium Chloride/Dextrose/ Sod Cl 1,000 ml @ 50 mls/hr Q20H IV Last administered on 11/09/18 05:46; Admin Dose 50 MLS/HR; Start 11/07/18 at 15:00 Famotidine (Pepcid) 20 mg DAILY NGT ; Start 11/10/18 at 09:00 Assessment/Plan Hospital Course (Demo Recall) IMP: 1. Acute hypoxemic respiratory failure/Vent Dependence 2. Intracranial bleed, status post ventriculostomy. 3. Hypertensive crisis. 4. History of prior cerebrovascular accident with left-sided weakness. 5. Cocaine positive in the urine screen. 6. Encephalopathy. 7. Acute on chronic renal failure RECS: 1. Continue current supportive measures 2. Family requesting transition to comfort care. [facility] Case was discussed with neurosurgery. Patient will likely be maintained on comfort measures as currently does not qualify for hospice secondary to insurance purposes. 3. Neurosurgery to remove ventriculostomy. 40 min cc time AMBROSIO YAN MD, [facility] November 09, 2018 11:20
--- NOTE | 2018-11-09 11:48 | CONS ---
Assessment/Plan Assessment/Plan Hospital Course 58 yo M with hx of uncontrolled HTN, DM, substance abuse and other comorbidities who presents for evaluation of L sided weakness and vomiting. Noted on HCT to have a thalamic hemorrhage with extension into the ventricles. The etiology is likely to be a hypertensive hemorrhage in the context of illicit substance abuse Secondary hemorrhage following primary ischemic event is not yet excluded... CTA H/N is without evidence of underlying AVM or aneurysm. Repeat HCT is notable for worsening intraventricular and thalamic hemorrhage with transependymal flow P: Continued management per neurosurgery Limit sedation where possible Hold antiplatelets/anticoagulants in the short term MRI brain when medically able Will follow clinically Consultation Date/Type/Reason Admit Date/Time November 05, 2018 at 03:49 Type of Consult Neurology Requesting Provider: EDUARDO ASENCIO Date/Time of Note DATE: 11/09/18 TIME: 11:48 24 HR Interval Summary Free Text/Dictation Continues critical care. EVD output ~ 10cc/hr today Exam Vital Signs Vitals Vital Signs Date Temp Pulse Resp B/P (MAP) Pulse Ox O2 O2 Flow FiO2 Time Delivery Rate 11/09/18 105 08:00 11/09/18 99.2 28 157/82 95 Mechanical 08:00 (107) Ventilator 11/09/18 45 08:00 Intake and Output 11/08/18 11/08/18 11/09/18 1515:00 23:00 07:00 IntakeIntake Total 520 ml 460 ml 400 ml OutputOutput Total 495 ml 357 ml 290 ml BalanceBalance 25 ml 103 ml 110 ml Exam PE: Gen Appearance: No Apparent Distress HEENT: Intubated; L frontal EVD Cardiovascular: Regular rate Abdomen: Soft Extremities: Dry NE: The patient was lethargic. Nonverbal d/t ETT. Able to open eyes to voice. Did not follow commands today. Cranial nerve examination was limited by mental status. R pupil was pinpoint; L pupil had a cataract. There was no afferent pupillary defect. Funduscopic examination was limited. Face was grossly symmetric, w/ present corneal and cough reflexes. Tone was normal. Muscle bulk was normal. I did not see fasciculations. The patient was spastic in his L arm; withdrew his other extremities to noxious stimuli Coordination and gait testing was limited by mental status. Arm and leg reflexes were within normal limits and symmetric. Jaeger's sign was absent. Plantar responses were flexor. LUZ ALBARADO NP November 09, 2018 11:48
[2018-11-09] MEDS: morphine 2 MG INJ IV PRN (12:57)
--- NOTE | 2018-11-09 13:19 | CONS ---
Assessment/Plan Assessment/Plan Assessment/Plan (Daily) 1. acute hemorrhagic stroke , Intracerebral hemorrhage with obstructive hydrocephalus s/p ventriculostomy tube placement on 11/05/18 2. Acute on chronic renal failure 2/2 ATN 2. HTN emergency 4. H/o HTN 5. Possibel CKD III 2/2 HTN nephrosclerosis 6. H/o substance abuse, urine drug screen positive for Cocaine Plan: BUN/Cr 88/5.6- pt remains intubated, pt continues to have deteriorating renal funciton, Urine output dropping, pt is made DNR< and family thinking about comof ort care but waitiing for one family memebr to arrive NIcardipine gtt for BP control and ICH not a candidate for renal replacement therapy due to comorbities and ICH Consultation Date/Type/Reason Admit Date/Time November 05, 2018 at 03:49 Initial Consult Date 11/05/18 Type of Consult NEPHROLOGY Requesting Provider: EDUARDO ASENCIO Date/Time of Note DATE: 11/09/18 TIME: 13:19 Exam/Review of Systems Exam Vitals Vital Signs Date Temp Pulse Resp B/P (MAP) Pulse Ox O2 O2 Flow FiO2 Time Delivery Rate 11/09/18 92 12:00 11/09/18 29 92 60 11:30 11/09/18 99.2 157/82 Mechanical 08:00 (107) Ventilator Intake and Output 11/08/18 11/08/18 11/09/18 1515:00 23:00 07:00 IntakeIntake Total 520 ml 460 ml 400 ml OutputOutput Total 495 ml 357 ml 290 ml BalanceBalance 25 ml 103 ml 110 ml Exam ENMT: intubated Neck: supple, non-tender Respiratory: congested cough, crackles/rales, diminished breath sounds Cardiovascular: regular rate and rhythm, nl pulses Gastrointestinal: soft, non-tender Musculoskeletal: muscle weakness, swelling Extremities: normal pulses Neurological: unresponsive, other (intubated on ventilator ) Skin: nl turgor Lymph: nl lymph nodes Results Result Diagram: 11/09/18 0446 11/09/18 0446 Results 24hrs Laboratory Tests Test 11/09/18 04:46 11/09/18 11:37 White Blood Count 10.1 Red Blood Count 3.07 L Hemoglobin 9.9 L Hematocrit 28.9 L Mean Corpuscular Volume 94.1 Mean Corpuscular Hemoglobin 32.2 Mean Corpuscular Hemoglobin Concent 34.3 Red Cell Distribution Width 13.1 Platelet Count 226 Mean Platelet Volume 11.6 H Immature Granulocytes % 0.400 Neutrophils % 85.8 H Lymphocytes % 4.2 L Monocytes % 9.0 Eosinophils % 0.2 Basophils % 0.4 Nucleated Red Blood Cells % 0.0 Immature Granulocytes # 0.040 H Neutrophils # 8.6 H Lymphocytes # 0.4 L Monocytes # 0.9 Eosinophils # 0.0 Basophils # 0.0 Nucleated Red Blood Cells # 0.0 Sodium Level 141 Potassium Level 3.5 Chloride Level 112 H Carbon Dioxide Level 16 L Anion Gap 13 Blood Urea Nitrogen 88 H Creatinine 5.60 H Est Glomerular Filtrat Rate mL/min 11 L Glucose Level 198 Calcium Level 8.1 L Phosphorus Level 6.0 H Magnesium Level 2.6 H Lab Scanned Report REFERENCE LAB Medications Medication Current Medications Morphine Sulfate (morphine) 2 mg Q4H PRN IV PAIN LEVEL 7-10 Last administered o n 11/09/18 12:57; Admin Dose 2 MG; Start 11/05/18 at 05:00 Midazolam HCl 50 ml @ 1 mls/hr TITRATE IV Last administered on 11/05/18at 09:48; Admin Dose 1 MLS/HR; Start 11/05/18 at 08:30 Thiamine HCl (Vitamin B1) 100 mg DAILY NGT Last administered on 11/09/18 08:08; Admin Dose 100 MG; Start 11/05/18 at 12:30 Labetalol HCl (Normodyne) 100 mg BID NGT Last administered on 11/09/18 08:08; Admin Dose 100 MG; Start 11/05/18 at 12:30 Nifedipine (Procardia) 20 mg Q6 NGT Last administered on 11/09/18 12:57; Admin Dose 20 MG; Start 11/05/18 at 12:30 Ondansetron HCl (Zofran Inj) 4 mg Q4H PRN IV NAUSEA AND/OR VOMITING; Start 11/05/18 at 12:30 Albuterol (Proventil 0.083% (Neb)) 1.25 mg Q2H RESP THERAPY PRN HHN WHEEZING AND SOB; Start 11/05/18 at 12:30 Nicardipine HCl 25 mg/Sodium Chloride 250 ml @ 0 mls/hr TITRATE IV ; Start 11/05/18 at 16:00 Labetalol HCl (Labetalol) 10 mg Q4 PRN IV ELEVATED SYSTOLIC BP Last administered on 11/09/18at 08:17; Admin Dose 10 MG; Start 11/07/18 at 13:30 Potassium Chloride/Dextrose/ Sod Cl 1,000 ml @ 50 mls/hr Q20H IV Last administered on 11/09/18at 05:46; Admin Dose 50 MLS/HR; Start 11/07/18 at 15:00 Famotidine (Pepcid) 20 mg DAILY NGT ; Start 11/10/18 at 09:00 DAINA LYONS MD November 09, 2018 13:19
[2018-11-09] MEDS ORDERED: morphine 2 MG INJ IV STA (15:10)
[2018-11-09] MEDS ORDERED: FENTAnyl (DRIP) 1000 mcg/100mL 100 ML IV SCH (15:30)
[2018-11-09] MEDS: ACETAMINOPHEN 650MG/20.3ML CUP NGT PRN (22:55)
[2018-11-10] VITALS (33 sets, daily range): BP systolic 108–145; BP diastolic 69–80; PULSE 71–86; RESP 13–25
--- NOTE | 2018-11-10 05:44 | PN ---
Date/Time of Note Date/Time of Note DATE: 11/10/18 TIME: 05:44 Assessment/Plan VTE Prophylaxis Risk score (from Ns)>0 risk: 5 SCD applied (from Ns): Yes Pharmacological prophylaxis: NA/contraindicated Pharm contraindication: bleeding Lines/Catheters IV Catheter Type (from Nrsg): Peripheral IV Urinary Cath still in place: Yes Reason Cath still needed: terminal illness/intractable pain Assessment/Plan Hospital Course SUBJECTIVE: Remains intubated. Started on tube feedings. OBJECTIVE: Physical Exam General: Adequately build 58 year-old male lying in bed in no apparent distress. HEENT: Normocephalic, left frontal ventriculostomy Eyes: Anicteric sclerae, conjunctivae clear. ENT: Nasal septum midline, oral mucosa is dry. Neck supple, no JVD noticed. Respiratory: Bilaterally diminished breath sounds. ETT to Vent. Cardiovascular: S1, S2 heard. Regular rate and rhythm. Abdomen: Soft, nontender, and nondistended. Bowel sounds positive in all 4 quadrants. Genitourinary: Deferred. Extremities: No cyanosis, no clubbing, no edema. Peripheral pulses palpable. Neurologic: Flaccidity of all 4 extremities. Minimal withdrawal to painful stimuli of B/L LE. Skin: Normal skin turgor. No skin rashes. Labs & Vitals per chart ASSESSMENT & PLAN 58-year-old male with comorbidities including hypertension, CVA with left-sided deficit, chronic kidney disease, and substance abuse who was brought in to the emergency room by family members because of nausea, vomiting and weakness with a brain CT revealing acute intraparenchymal hemorrhage centered in the right thalamus with intraventricular extension, who was admitted to inpatient setting for further treatment and evaluation. 1. Hypertensive intracerebral hemorrhage; intraventricular hemorrhage; obstructive hydrocephalus; brain herniation. -Status post left frontal ventriculostomy placement on 11/05/2018. -Remains on ventilator. -Poor prognosis. -Patient is a DNR. 2. Hypertensive emergency. -Currently blood pressure fairly well controlled on routine medications. 3. Acute on chronic kidney disease. -Being followed by nephrology. 4. Acute hypoxic respiratory failure. -Ventilator management as per pulmonology. 5. Normocytic, normochromic anemia. -Monitor H&H closely. 6. Diabetes mellitus. -Latest hemoglobin A1c 6.8. -Monitor glycemic trends. -Start SSI. 7. BPH. -Currently has a Quinn catheter in place. 8. Fluids, electrolytes, and nutrition. -Tube feedings. 9. DVT prophylaxis -B/L SCDs. 10. Plan. -Poor prognosis. -The patient is a DNR. -Family planning on initiating comfort measures. The patient was seen in collaboration with Dr. Byrd. Result Diagram: 11/10/18 0427 11/10/18 0427 Results 24hrs Laboratory Tests Test 11/09/18 11:37 11/10/18 04:27 Lab Scanned Report REFERENCE LAB White Blood Count 8.7 Red Blood Count 2.66 L Hemoglobin 8.6 L Hematocrit 25.7 L Mean Corpuscular Volume 96.6 Mean Corpuscular Hemoglobin 32.3 Mean Corpuscular Hemoglobin Concent 33.5 Red Cell Distribution Width 13.2 Platelet Count 203 Mean Platelet Volume 11.7 H Immature Granulocytes % 0.700 H Neutrophils % 79.9 H Lymphocytes % 9.9 L Monocytes % 8.6 Eosinophils % 0.3 Basophils % 0.6 Nucleated Red Blood Cells % 0.0 Immature Granulocytes # 0.060 H Neutrophils # 7.0 Lymphocytes # 0.9 Monocytes # 0.8 Eosinophils # 0.0 Basophils # 0.1 Nucleated Red Blood Cells # 0.0 Sodium Level 140 Potassium Level 3.9 Chloride Level 112 H Carbon Dioxide Level 19 L Anion Gap 9 Blood Urea Nitrogen 92 H Creatinine 4.92 H Est Glomerular Filtrat Rate mL/min 12 L Glucose Level 198 Calcium Level 8.1 L Phosphorus Level 6.1 H Magnesium Level 2.6 H Exam/Review of Systems Exam Vitals Vital Signs Date Temp Pulse Resp B/P (MAP) Pulse Ox O2 O2 Flow FiO2 Time Delivery Rate 11/10/18 74 04:00 11/10/18 98.7 14 111/73 98 Mechanical 03:00 (86) Ventilator 11/10/18 60 01:45 Intake and Output 11/09/18 11/09/18 11/10/18 1515:00 23:00 07:00 IntakeIntake Total 400 ml 467.33 ml 365 ml OutputOutput Total 174 ml 243 ml 136 ml BalanceBalance 226 ml 224.33 ml 229 ml Results Results 24hrs Laboratory Tests Test 11/09/18 11:37 11/10/18 04:27 Lab Scanned Report REFERENCE LAB White Blood Count 8.7 Red Blood Count 2.66 L Hemoglobin 8.6 L Hematocrit 25.7 L Mean Corpuscular Volume 96.6 Mean Corpuscular Hemoglobin 32.3 Mean Corpuscular Hemoglobin Concent 33.5 Red Cell Distribution Width 13.2 Platelet Count 203 Mean Platelet Volume 11.7 H Immature Granulocytes % 0.700 H Neutrophils % 79.9 H Lymphocytes % 9.9 L Monocytes % 8.6 Eosinophils % 0.3 Basophils % 0.6 Nucleated Red Blood Cells % 0.0 Immature Granulocytes # 0.060 H Neutrophils # 7.0 Lymphocytes # 0.9 Monocytes # 0.8 Eosinophils # 0.0 Basophils # 0.1 Nucleated Red Blood Cells # 0.0 Sodium Level 140 Potassium Level 3.9 Chloride Level 112 H Carbon Dioxide Level 19 L Anion Gap 9 Blood Urea Nitrogen 92 H Creatinine 4.92 H Est Glomerular Filtrat Rate mL/min 12 L Glucose Level 198 Calcium Level 8.1 L Phosphorus Level 6.1 H Magnesium Level 2.6 H Medications Medication Current Medications Morphine Sulfate (morphine) 2 mg Q4H PRN IV PAIN LEVEL 7-10 Last administered on 11/09/18at 12:57; Admin Dose 2 MG; Start 11/05/18 at 05:00 Midazolam HCl 50 ml @ 1 mls/hr TITRATE IV Last administered on 11/05/18at 09:48; Admin Dose 1 MLS/HR; Start 11/05/18 at 08:30 Thiamine HCl (Vitamin B1) 100 mg DAILY NGT Last administered on 11/09/18at 08:08; Admin Dose 100 MG; Start 11/05/18 at 12:30 Labetalol HCl (Normodyne) 100 mg BID NGT Last administered on 11/09/18at 20:39; Admin Dose 100 MG; Start 11/05/18 at 12:30 Nifedipine (Procardia) 20 mg Q6 NGT Last administered on 11/09/18at 18:56; Admin Dose 20 MG; Start 11/05/18 at 12:30 Ondansetron HCl (Zofran Inj) 4 mg Q4H PRN IV NAUSEA AND/OR VOMITING; Start 11/05/18 at 12:30 Albuterol (Proventil 0.083% (Neb)) 1.25 mg Q2H RESP THERAPY PRN HHN WHEEZING AND SOB; Start 11/05/18 at 12:30 Nicardipine HCl 25 mg/Sodium Chloride 250 ml @ 0 mls/hr TITRATE IV ; Start 11/05/18 at 16:00 Labetalol HCl (Labetalol) 10 mg Q4 PRN IV ELEVATED SYSTOLIC BP Last administered on 11/09/18at 08:17; Admin Dose 10 MG; Start 11/07/18 at 13:30 Potassium Chloride/Dextrose/ Sod Cl 1,000 ml @ 50 mls/hr Q20H IV Last administered on 11/09/18at 22:50; Admin Dose 50 MLS/HR; Start 11/07/18 at 15:00 Famotidine (Pepcid) 20 mg DAILY NGT ; Start 11/10/18 at 09:00 Fentanyl 100 ml @ 2.5 mls/hr TITRATE IV Last administered on 11/09/18at 17:06; Admin Dose 5 MLS/HR; Start 11/09/18 at 15:30 Acetaminophen (Tylenol Liquid) 650 mg Q6H PRN NGT MILD PAIN(1-3)OR ELEVATED TEMP Last administered on 11/09/18at 22:55; Admin Dose 650 MG; Start 11/09/18 at 23:00 TOMY PRINGLE NP November 10, 2018 05:44
[2018-11-10] MEDS: NIFEdipine 10 MG CAP NGT SCH ×5 (06:00→23:54)
--- NOTE | 2018-11-10 08:36 | CONS ---
Assessment/Plan Assessment/Plan Assessment/Plan (Daily) 1. acute hemorrhagic stroke , Intracerebral hemorrhage with obstructive hydrocephalus s/p ventriculostomy tube placement on 11/05/18 2. Acute on chronic renal failure 2/2 ATN 2. HTN emergency 4. H/o HTN 5. Possibel CKD III 2/2 HTN nephrosclerosis 6. H/o substance abuse, urine drug screen positive for Cocaine Plan: BUN/Cr 92/4.92- pt remains intubated, pt continues to have deteriorating renal funciton, Urine output dropping, pt is made DNR< and family thinking about [place] but waitiing for one family memebr to arrive NIcardipine gtt for BP control and ICH not a candidate for renal replacement therapy due to comorbities and ICH Consultation Date/Type/Reason Admit Date/Time November 05, 2018 at 03:49 Initial Consult Date 11/05/18 Type of Consult NEPHROLOGY Requesting Provider: EDUARDO ASENCIO Date/Time of Note DATE: 11/10/18 TIME: 08:35 Exam/Review of Systems Exam Vitals Vital Signs Date Temp Pulse Resp B/P (MAP) Pulse Ox O2 O2 Flow FiO2 Time Delivery Rate 11/10/18 45 08:00 11/10/18 72 21 114/73 98 Mechanical 07:00 (87) Ventilator 11/10/18 98.7 04:00 Intake and Output 11/09/18 11/09/18 11/10/18 1515:00 23:00 07:00 IntakeIntake Total 400 ml 467.33 ml 675 ml OutputOutput Total 174 ml 243 ml 258 ml BalanceBalance 226 ml 224.33 ml 417 ml Exam ENMT: intubated Neck: supple, non-tender Respiratory: congested cough, crackles/rales, diminished breath sounds Cardiovascular: regular rate and rhythm, nl pulses Gastrointestinal: soft, non-tender Musculoskeletal: muscle weakness, swelling Extremities: normal pulses Neurological: unresponsive, other (intubated on ventilator ) Skin: nl turgor Lymph: nl lymph nodes Results Result Diagram: 11/10/18 0427 11/10/18 0427 Results 24hrs Laboratory Tests Test 11/09/18 11:37 11/10/18 04:27 Lab Scanned Report REFERENCE LAB White Blood Count 8.7 Red Blood Count 2.66 L Hemoglobin 8.6 L Hematocrit 25.7 L Mean Corpuscular Volume 96.6 Mean Corpuscular Hemoglobin 32.3 Mean Corpuscular Hemoglobin Concent 33.5 Red Cell Distribution Width 13.2 Platelet Count 203 Mean Platelet Volume 11.7 H Immature Granulocytes % 0.700 H Neutrophils % 79.9 H Lymphocytes % 9.9 L Monocytes % 8.6 Eosinophils % 0.3 Basophils % 0.6 Nucleated Red Blood Cells % 0.0 Immature Granulocytes # 0.060 H Neutrophils # 7.0 Lymphocytes # 0.9 Monocytes # 0.8 Eosinophils # 0.0 Basophils # 0.1 Nucleated Red Blood Cells # 0.0 Sodium Level 140 Potassium Level 3.9 Chloride Level 112 H Carbon Dioxide Level 19 L Anion Gap 9 Blood Urea Nitrogen 92 H Creatinine 4.92 H Est Glomerular Filtrat Rate mL/min 12 L Glucose Level 198 Calcium Level 8.1 L Phosphorus Level 6.1 H Magnesium Level 2.6 H Medications Medication Current Medications Morphine Sulfate (morphine) 2 mg Q4H PRN IV PAIN LEVEL 7-10 Last administered on 11/09/18at 12:57; Admin Dose 2 MG; Start 11/05/18 at 05:00 Midazolam HCl 50 ml @ 1 mls/hr TITRATE IV Last administered on 11/05/18at 09:48; Admin Dose 1 MLS/HR; Start 11/05/18 at 08:30 Thiamine HCl (Vitamin B1) 100 mg DAILY NGT Last administered on 11/09/18at 08:08; Admin Dose 100 MG; Start 11/05/18 at 12:30 Labetalol HCl (Normodyne) 100 mg BID NGT Last administered on 11/09/18at 20:39; Admin Dose 100 MG; Start 11/05/18 at 12:30 Nifedipine (Procardia) 20 mg Q6 NGT Last administered on 11/09/18at 18:56; Admin Dose 20 MG; Start 11/05/18 at 12:30 Ondansetron HCl (Zofran Inj) 4 mg Q4H PRN IV NAUSEA AND/OR VOMITING; Start 11/05/18 at 12:30 Albuterol (Proventil 0.083% (Neb)) 1.25 mg Q2H RESP THERAPY PRN HHN WHEEZING AND SOB; Start 11/05/18 at 12:30 Nicardipine HCl 25 mg/Sodium Chloride 250 ml @ 0 mls/hr TITRATE IV ; Start 11/05/18 at 16:00 Labetalol HCl (Labetalol) 10 mg Q4 PRN IV ELEVATED SYSTOLIC BP Last administered on 11/09/18at 08:17; Admin Dose 10 MG; Start 11/07/18 at 13:30 Potassium Chloride/Dextrose/ Sod Cl 1,000 ml @ 50 mls/hr Q20H IV Last administered on 11/09/18at 22:50; Admin Dose 50 MLS/HR; Start 11/07/18 at 15:00 Famotidine (Pepcid) 20 mg DAILY NGT ; Start 11/10/18 at 09:00 Fentanyl 100 ml @ 2.5 mls/hr TITRATE IV Last administered on 11/09/18at 17:06; Admin Dose 5 MLS/HR; Start 11/09/18 at 15:30 Acetaminophen (Tylenol Liquid) 650 mg Q6H PRN NGT MILD PAIN(1-3)OR ELEVATED TEMP Last administered on 11/09/18at 22:55; Admin Dose 650 MG; Start 11/09/18 at 23:00 DAINA LYONS MD November 10, 2018 08:36
[2018-11-10] MEDS: LABETALOL 100 MG TAB NGT SCH ×2 (09:00→20:40)
[2018-11-10] MEDS ORDERED: GLUCOSE GEL 15 GRAM TUBE BUCCAL PRN (09:00)
[2018-11-10] MEDS ORDERED: GLUCAGON 1 MG INJ IM PRN (09:00)
[2018-11-10] MEDS ORDERED: GLUCOSE GEL 15 GRAM TUBE PO PRN ×2 (09:00)
[2018-11-10] MEDS ORDERED: INSULIN ASPART [NOVOLOG] 3 ML PEN SC SCH (09:00)
[2018-11-10] MEDS ORDERED: DEXTROSE 50% 50 ML SYRINGE IV PRN ×2 (09:00)
[2018-11-10] MEDS: THIAMINE 100 MG TAB NGT SCH (09:05)
[2018-11-10] MEDS: FAMOTIDINE 20 MG TAB NGT SCH (09:05)
--- NOTE | 2018-11-10 12:18 | CONS ---
Consult Date/Type/Reason Admit Date/Time November 05, 2018 at 03:49 Initial Consult Date 11/05/18 Type of Consult Pulmonary Requesting Provider: EDUARDO ASENCIO Date/Time of Note DATE: 11/10/18 TIME: 12:18 Subjective No significant changes. Patient remains somnolent on mechanical ventilation. Objective Vital Signs Date Temp Pulse Resp B/P (MAP) Pulse Ox O2 O2 Flow FiO2 Time Delivery Rate 11/10/18 45 12:00 11/10/18 73 23 96 11:00 11/10/18 119/73 Mechanical 11:00 (88) Ventilator 11/10/18 98.8 08:00 Intake and Output 11/09/18 11/09/18 11/10/18 1515:00 23:00 07:00 IntakeIntake Total 400 ml 467.33 ml 705 ml OutputOutput Total 174 ml 243 ml 283 ml BalanceBalance 226 ml 224.33 ml 422 ml Exam HEENT: Dry mucous membranes orally intubated ventriculostomy in place NECK: Supple, no JVD noted, no cervical adenopathy noted. LUNGS: Fair breath sounds bilaterally. CARDIOVASCULAR: S1, S2 normal. ABDOMEN: Soft, nontender, no megaly or masses noted. EXTREMITIES: No clubbing or cyanosis noted. NEUROLOGIC: Minimal purposeful movements noted. Vent Setting Ventilator Support Mode: AC Fraction of Inspired Oxygen pe: 45 Positive End Expiratory Pressu: 5.0 Results/Medications Result Diagram: 11/10/18 0427 11/10/18 0427 Results 24 hrs Laboratory Tests Test 11/10/18 04:27 11/10/18 11:50 White Blood Count 8.7 Red Blood Count 2.66 L Hemoglobin 8.6 L Hematocrit 25.7 L Mean Corpuscular Volume 96.6 Mean Corpuscular Hemoglobin 32.3 Mean Corpuscular Hemoglobin Concent 33.5 Red Cell Distribution Width 13.2 Platelet Count 203 Mean Platelet Volume 11.7 H Immature Granulocytes % 0.700 H Neutrophils % 79.9 H Lymphocytes % 9.9 L Monocytes % 8.6 Eosinophils % 0.3 Basophils % 0.6 Nucleated Red Blood Cells % 0.0 Immature Granulocytes # 0.060 H Neutrophils # 7.0 Lymphocytes # 0.9 Monocytes # 0.8 Eosinophils # 0.0 Basophils # 0.1 Nucleated Red Blood Cells # 0.0 Sodium Level 140 Potassium Level 3.9 Chloride Level 112 H Carbon Dioxide Level 19 L Anion Gap 9 Blood Urea Nitrogen 92 H Creatinine 4.92 H Est Glomerular Filtrat Rate mL/min 12 L Glucose Level 198 Calcium Level 8.1 L Phosphorus Level 6.1 H Magnesium Level 2.6 H Bedside Glucose 232 H Medications Current Medications Morphine Sulfate (morphine) 2 mg Q4H PRN IV PAIN LEVEL 7-10 Last administered on 11/09/18 12:57; Admin Dose 2 MG; Start 11/05/18 at 05:00 Midazolam HCl 50 ml @ 1 mls/hr TITRATE IV Last administered on 11/05/18 09:48; Admin Dose 1 MLS/HR; Start 11/05/18 at 08:30 Thiamine HCl (Vitamin B1) 100 mg DAILY NGT Last administered on 11/10/18at 09:05; Admin Dose 100 MG; Start 11/05/18 at 12:30 Labetalol HCl (Normodyne) 100 mg BID NGT Last administered on 11/09/18at 20:39; Admin Dose 100 MG; Start 11/05/18 at 12:30 Nifedipine (Procardia) 20 mg Q6 NGT Last administered on 11/09/18 18:56; Admin Dose 20 MG; Start 11/05/18 at 12:30 Ondansetron HCl (Zofran Inj) 4 mg Q4H PRN IV NAUSEA AND/OR VOMITING; Start 11/05/18 at 12:30 Albuterol (Proventil 0.083% (Neb)) 1.25 mg Q2H RESP THERAPY PRN HHN WHEEZING AND SOB; Start 11/05/18 at 12:30 Nicardipine HCl 25 mg/Sodium Chloride 250 ml @ 0 mls/hr TITRATE IV ; Start 11/05/18 at 16:00 Labetalol HCl (Labetalol) 10 mg Q4 PRN IV ELEVATED SYSTOLIC BP Last administered on 11/09/18 08:17; Admin Dose 10 MG; Start 11/07/18 at 13:30 Potassium Chloride/Dextrose/ Sod Cl 1,000 ml @ 50 mls/hr Q20H IV Last administered on 11/09/18at 22:50; Admin Dose 50 MLS/HR; Start 11/07/18 at 15:00 Famotidine (Pepcid) 20 mg DAILY NGT Last administered on 11/10/18at 09:05; Admin Dose 20 MG; Start 11/10/18 at 09:00 Fentanyl 100 ml @ 2.5 mls/hr TITRATE IV Last administered on 11/09/18at 17:06; Admin Dose 5 MLS/HR; Start 11/09/18 at 15:30 Acetaminophen (Tylenol Liquid) 650 mg Q6H PRN NGT MILD PAIN(1-3)OR ELEVATED TEMP Last administered on 11/09/18at 22:55; Admin Dose 650 MG; Start 11/09/18 at 23:00 Insulin Aspart (Novolog Insulin Pen) (Adult SC Insulin - Mild Algorithm)... Q6 SC ; Start 11/10/18 at 12:00 Miscellaneous Information 1 ea NOTE XX ; Start 11/10/18 at 09:00 Glucose (Glutose) 15 gm Q15M PRN PO DECREASED GLUCOSE; Start 11/10/18 at 09:00 Glucose (Glutose) 22.5 gm Q15M PRN PO DECREASED GLUCOSE; Start 11/10/18 at 09:00 Dextrose (D50w Syringe) 25 ml Q15M PRN IV DECREASED GLUCOSE; Start 11/10/18 at 09:00 Dextrose (D50w Syringe) 50 ml Q15M PRN IV DECREASED GLUCOSE; Start 11/10/18 at 09:00 Glucagon (Glucagen) 1 mg Q15M PRN IM DECREASED GLUCOSE; Start 11/10/18 at 09:00 Glucose (Glutose) 15 gm Q15M PRN BUCCAL DECREASED GLUCOSE; Start 11/10/18 at 09:00 Assessment/Plan Hospital Course (Demo Recall) IMP: 1. Acute hypoxemic respiratory failure/Vent Dependence 2. Intracranial bleed, status post ventriculostomy. 3. Hypertensive crisis. 4. History of prior cerebrovascular accident with left-sided weakness. 5. Cocaine positive in the urine screen. 6. Encephalopathy. 7. Acute on chronic renal failure RECS: 1. Continue current supportive measures 2. Family requesting transition to comfort care. Anticipate transition to comfort care tomorrow. Patient's insurance does not cover inpatient [facility] bed. 3. Neurosurgery to remove ventriculostomy once patient scheduled for transition to comfort care.. 40 min cc time AMBROSIO YAN MD, [facility] November 10, 2018 12:18
[2018-11-10] MEDS: Insulin NOVOLOG SS MILD Algorithm (NPO/TPN/ENTERAL FEEDS) SC SCH ×3 (12:36→23:51)
--- NOTE | 2018-11-10 14:32 | CONS ---
Assessment/Plan Assessment/Plan Hospital Course 58 yo M with hx of uncontrolled HTN, DM, substance abuse and other comorbidities who presents for evaluation of L sided weakness and vomiting. Noted on HCT to have a thalamic hemorrhage with extension into the ventricles. The etiology is likely to be a hypertensive hemorrhage in the context of illicit substance abuse Secondary hemorrhage following primary ischemic event is not yet excluded... CTA H/N is without evidence of underlying AVM or aneurysm. Repeat HCT is notable for worsening intraventricular and thalamic hemorrhage with transependymal flow P: Continued management per neurosurgery Limit sedation where possible Hold antiplatelets/anticoagulants in the short term MRI brain when medically able Will follow Consultation Date/Type/Reason Admit Date/Time November 05, 2018 at 03:49 Type of Consult Neurology Requesting Provider: EDUARDO ASENCIO Date/Time of Note DATE: 11/10/18 TIME: 14:32 24 HR Interval Summary Free Text/Dictation Continues critical care. Family reportedly planning on terminal extubation tomorrow. Exam Vital Signs Vitals Vital Signs Date Temp Pulse Resp B/P (MAP) Pulse Ox O2 O2 Flow FiO2 Time Delivery Rate 11/10/18 74 21 97 50 13:11 11/10/18 119/73 Mechanical 11:00 (88) Ventilator 11/10/18 98.8 08:00 Intake and Output 11/09/18 11/09/18 11/10/18 1515:00 23:00 07:00 IntakeIntake Total 400 ml 467.33 ml 705 ml OutputOutput Total 174 ml 243 ml 283 ml BalanceBalance 226 ml 224.33 ml 422 ml Exam PE: Gen Appearance: No Apparent Distress HEENT: Intubated; L frontal EVD Cardiovascular: Regular rate Abdomen: Soft Extremities: Dry NE: The patient was obtunded and nonverbal Cranial nerve examination was limited by mental status. R pupil was pinpoint; L pupil had a cataract. There was no afferent pupillary defect. Funduscopic examination was limited. Face was grossly symmetric, w/ present corneal and cough reflexes. Tone was normal. Muscle bulk was normal. I did not see fasciculations. The patient was spastic in his L arm; withdrew his lower extremities to noxious stimuli Coordination and gait testing was limited by mental status. Arm and leg reflexes were within normal limits and symmetric. Jaeger's sign was absent. Plantar responses were flexor. LUZ ALBARADO NP November 10, 2018 14:32
[2018-11-10] MEDS: ACETAMINOPHEN 650MG/20.3ML CUP NGT PRN (20:40)
[2018-11-11] VITALS (29 sets, daily range): BP systolic 111–146; BP diastolic 72–89; PULSE 70–97; RESP 13–28
[2018-11-11] MEDS: NIFEdipine 10 MG CAP NGT SCH (05:45)
[2018-11-11] MEDS: Insulin NOVOLOG SS MILD Algorithm (NPO/TPN/ENTERAL FEEDS) SC SCH (05:47)
--- NOTE | 2018-11-11 09:52 | CONS ---
Consult Date/Type/Reason Admit Date/Time November 05, 2018 at 03:49 Initial Consult Date 11/05/18 Type of Consult Pulmonary Requesting Provider: EDUARDO ASENCIO Date/Time of Note DATE: 11/11/18 TIME: 09:51 Subjective Patient remains somnolent on mechanical ventilation this morning. Anticipating transition to comfort measures this afternoon. Objective Vital Signs Date Temp Pulse Resp B/P (MAP) Pulse Ox O2 O2 Flow FiO2 Time Delivery Rate 11/11/18 85 18 111/72 96 Mechanical 06:00 (85) Ventilator 11/11/18 45 05:54 11/11/18 98.1 04:00 Intake and Output 11/10/18 11/10/18 11/11/18 1414:59 22:59 06:59 IntakeIntake Total 720 ml 300 ml 300 ml OutputOutput Total 332 ml 569 ml 455 ml BalanceBalance 388 ml -269 ml -155 ml Exam HEENT: Dry mucous membranes orally intubated ventriculostomy in place NECK: Supple, no JVD noted, no cervical adenopathy noted. LUNGS: Fair breath sounds bilaterally. CARDIOVASCULAR: S1, S2 normal. ABDOMEN: Soft, nontender, no megaly or masses noted. EXTREMITIES: No clubbing or cyanosis noted. NEUROLOGIC: Minimal purposeful movements noted. Vent Setting Ventilator Support Mode: AC, VC plus Fraction of Inspired Oxygen pe: 45 Positive End Expiratory Pressu: 5.0 Results/Medications Result Diagram: 11/11/18 0434 11/11/18 0434 Results 24 hrs Laboratory Tests Test 11/10/18 11:50 11/10/18 16:39 11/10/18 23:47 11/11/18 04:34 Bedside Glucose 232 H 209 216 White Blood Count 6.9 # Red Blood Count 3.35 #L Hemoglobin 10.7 #L Hematocrit 32.2 #L Mean Corpuscular 96.1 Volume Mean Corpuscular 31.9 Hemoglobin Mean Corpuscular 33.2 Hemoglobin Concent Red Cell 13.2 Distribution Width Platelet Count 248 # Mean Platelet Volume 11.9 H Immature 0.400 Granulocytes % Neutrophils % Lymphocytes % Monocytes % Eosinophils % Basophils % Immature 0.030 Granulocytes # Neutrophils # Lymphocytes # Monocytes # Eosinophils # Basophils # Sodium Level 143 Potassium Level 4.0 Chloride Level 113 H Carbon Dioxide Level 18 L Anion Gap 12 Blood Urea Nitrogen 98 H Creatinine 4.50 H Est Glomerular 14 L Filtrat Rate mL/min Glucose Level 229 H Calcium Level 8.7 Phosphorus Level 5.5 H Magnesium Level 3.0 H Test 11/11/18 05:42 Bedside Glucose 264 H Medications Current Medications Morphine Sulfate (morphine) 2 mg Q4H PRN IV PAIN LEVEL 7-10 Last administered on 11/09/18 12:57; Admin Dose 2 MG; Start 11/05/18 at 05:00 Midazolam HCl 50 ml @ 1 mls/hr TITRATE IV Last administered on 11/05/18 09:48; Admin Dose 1 MLS/HR; Start 11/05/18 at 08:30 Thiamine HCl (Vitamin B1) 100 mg DAILY NGT Last administered on 11/10/18 09:05; Admin Dose 100 MG; Start 11/05/18 at 12:30 Labetalol HCl (Normodyne) 100 mg BID NGT Last administered on 11/10/18at 20:40; Admin Dose 100 MG; Start 11/05/18 at 12:30 Nifedipine (Procardia) 20 mg Q6 NGT Last administered on 11/11/18at 05:45; Admin Dose 20 MG; Start 11/05/18 at 12:30 Ondansetron HCl (Zofran Inj) 4 mg Q4H PRN IV NAUSEA AND/OR VOMITING; Start 11/05/18 at 12:30 Albuterol (Proventil 0.083% (Neb)) 1.25 mg Q2H RESP THERAPY PRN HHN WHEEZING AND SOB; Start 11/05/18 at 12:30 Nicardipine HCl 25 mg/Sodium Chloride 250 ml @ 0 mls/hr TITRATE IV ; Start 11/05/18 at 16:00 Labetalol HCl (Labetalol) 10 mg Q4 PRN IV ELEVATED SYSTOLIC BP Last administered on 11/09/18 08:17; Admin Dose 10 MG; Start 11/07/18 at 13:30 Famotidine (Pepcid) 20 mg DAILY NGT Last administered on 11/10/18at 09:05; Admin Dose 20 MG; Start 11/10/18 at 09:00 Fentanyl 100 ml @ 2.5 mls/hr TITRATE IV Last administered on 11/09/18at 17:06; Admin Dose 5 MLS/HR; Start 11/09/18 at 15:30 Acetaminophen (Tylenol Liquid) 650 mg Q6H PRN NGT MILD PAIN(1-3)OR ELEVATED TEMP Last administered on 11/10/18at 20:40; Admin Dose 650 MG; Start 11/09/18 at 23:00 Insulin Aspart (Novolog Insulin Pen) (Adult SC Insulin - Mild Algorithm)... Q6 SC Last administered on 11/11/18at 05:47; Admin Dose 4 UNIT; Start 11/10/18 at 12:00 Miscellaneous Information 1 ea NOTE XX ; Start 11/10/18 at 09:00 Glucose (Glutose) 15 gm Q15M PRN PO DECREASED GLUCOSE; Start 11/10/18 at 09:00 Glucose (Glutose) 22.5 gm Q15M PRN PO DECREASED GLUCOSE; Start 11/10/18 at 09:00 Dextrose (D50w Syringe) 25 ml Q15M PRN IV DECREASED GLUCOSE; Start 11/10/18 at 09:00 Dextrose (D50w Syringe) 50 ml Q15M PRN IV DECREASED GLUCOSE; Start 11/10/18 at 09:00 Glucagon (Glucagen) 1 mg Q15M PRN IM DECREASED GLUCOSE; Start 11/10/18 at 09:00 Glucose (Glutose) 15 gm Q15M PRN BUCCAL DECREASED GLUCOSE; Start 11/10/18 at 09:00 Assessment/Plan Hospital Course (Demo Recall) IMP: 1. Acute hypoxemic respiratory failure/Vent Dependence 2. Intracranial bleed, status post ventriculostomy. 3. Hypertensive crisis. 4. History of prior cerebrovascular accident with left-sided weakness. 5. Cocaine positive in the urine screen. 6. Encephalopathy. 7. Acute on chronic renal failure RECS: 1. Continue current supportive measures 2. Family requesting transition to comfort care. Anticipate transition to comfo rt care tomorrow. Patient's insurance does not cover inpatient GIP bed. 3. Neurosurgery to remove ventriculostomy once patient scheduled for transition to comfort care.. 40 min cc time transition to comfort care today when family ready. AMBROSIO YAN MD, [facility] November 11, 2018 09:52
--- NOTE | 2018-11-11 10:02 | PN ---
Date/Time of Note Date/Time of Note DATE: 11/11/18 TIME: 09:59 Assessment/Plan VTE Prophylaxis Risk score (from Ns)>0 risk: 5 SCD applied (from Ns): Yes Pharmacological prophylaxis: NA/contraindicated Pharm contraindication: bleeding Lines/Catheters IV C[facility] Type [facility]from [facility] Saline Lock Urinary Cath still in place: Yes Reason Cath still needed: other (indicate) Assessment/Plan Hospital Course SUBJECTIVE: Remains intubated. On tube feedings. OBJECTIVE: Physical Exam General: Adequately build 58 year-old male lying in bed in no apparent distress. HEENT: Normocephalic, left frontal ventriculostomy Eyes: Anicteric sclerae, conjunctivae clear. ENT: Nasal septum midline, oral mucosa is dry. Neck supple, no JVD noticed. Respiratory: Bilaterally diminished breath sounds. ETT to Vent. Cardiovascular: S1, S2 heard. Regular rate and rhythm. Abdomen: Soft, nontender, and nondistended. Bowel sounds positive in all 4 quadrants. Genitourinary: Deferred. Extremities: No cyanosis, no clubbing, no edema. Peripheral pulses palpable. Neurologic: Flaccidity of all 4 extremities. Minimal withdrawal to painful stimuli of B/L LE. Skin: Normal skin turgor. No skin rashes. Labs & Vitals per chart ASSESSMENT & PLAN 58-year-old male with comorbidities including hypertension, CVA with left-sided deficit, chronic kidney disease, and substance abuse who was brought in to the emergency room by family members because of nausea, vomiting and weakness with a brain CT revealing acute intraparenchymal hemorrhage centered in the right thalamus with intraventricular extension, who was admitted to inpatient setting for further treatment and evaluation. 1. Hypertensive intracerebral hemorrhage; intraventricular hemorrhage; obstructive hydrocephalus; brain herniation. -Status post left frontal ventriculostomy placement on 11/05/2018. -Remains on ventilator. -Poor prognosis. -Patient is a DNR. 2. Hypertensive emergency. -Currently blood pressure fairly well controlled on routine medications. 3. Acute on chronic kidney disease. -Being followed by nephrology. 4. Acute hypoxic respiratory failure. -Ventilator management as per pulmonology. 5. Normocytic, normochromic anemia. -Monitor H&H closely. 6. Diabetes mellitus. -Latest hemoglobin A1c 6.8. -Monitor glycemic trends. -Continue SSI. 7. BPH. -Currently has a Quinn catheter in place. 8. Fluids, electrolytes, and nutrition. -Tube feedings. 9. DVT prophylaxis -B/L SCDs. 10. Plan. -Poor prognosis. -The patient is a DNR. -Family planning on initiating comfort measures. The patient was seen in collaboration with Dr. Byrd. Result Diagram: 11/11/18 0434 11/11/18 0434 Results 24hrs Laboratory Tests Test 11/10/18 11:50 11/10/18 16:39 11/10/18 23:47 11/11/18 04:34 Bedside Glucose 232 H 209 216 White Blood Count 6.9 # Red Blood Count 3.35 #L Hemoglobin 10.7 #L Hematocrit 32.2 #L Mean Corpuscular 96.1 Volume Mean Corpuscular 31.9 Hemoglobin Mean Corpuscular 33.2 Hemoglobin Concent Red Cell 13.2 Distribution Width Platelet Count 248 # Mean Platelet Volume 11.9 H Immature 0.400 Granulocytes % Neutrophils % Lymphocytes % Monocytes % Eosinophils % Basophils % Immature 0.030 Granulocytes # Neutrophils # Lymphocytes # Monocytes # Eosinophils # Basophils # Sodium Level 143 Potassium Level 4.0 Chloride Level 113 H Carbon Dioxide Level 18 L Anion Gap 12 Blood Urea Nitrogen 98 H Creatinine 4.50 H Est Glomerular 14 L Filtrat Rate mL/min Glucose Level 229 H Calcium Level 8.7 Phosphorus Level 5.5 H Magnesium Level 3.0 H Test 11/11/18 05:42 Bedside Glucose 264 H Exam/Review of Systems Exam Vitals Vital Signs Date Temp Pulse Resp B/P (MAP) Pulse Ox O2 O2 Flow FiO2 Time Delivery Rate 11/11/18 85 18 111/72 96 Mechanical 06:00 (85) Ventilator 11/11/18 45 05:54 11/11/18 98.1 04:00 Intake and Output 11/10/18 11/10/18 11/11/18 1515:00 23:00 07:00 IntakeIntake Total 665 ml 300 ml 270 ml OutputOutput Total 361 ml 593 ml 370 ml BalanceBalance 304 ml -293 ml -100 ml Results Results 24hrs Laboratory Tests Test 11/10/18 11:50 11/10/18 16:39 11/10/18 23:47 11/11/18 04:34 Bedside Glucose 232 H 209 216 White Blood Count 6.9 # Red Blood Count 3.35 #L Hemoglobin 10.7 #L Hematocrit 32.2 #L Mean Corpuscular 96.1 Volume Mean Corpuscular 31.9 Hemoglobin Mean Corpuscular 33.2 Hemoglobin Concent Red Cell 13.2 Distribution Width Platelet Count 248 # Mean Platelet Volume 11.9 H Immature 0.400 Granulocytes % Neutrophils % Lymphocytes % Monocytes % Eosinophils % Basophils % Immature 0.030 Granulocytes # Neutrophils # Lymphocytes # Monocytes # Eosinophils # Basophils # Sodium Level 143 Potassium Level 4.0 Chloride Level 113 H Carbon Dioxide Level 18 L Anion Gap 12 Blood Urea Nitrogen 98 H Creatinine 4.50 H Est Glomerular 14 L Filtrat Rate mL/min Glucose Level 229 H Calcium Level 8.7 Phosphorus Level 5.5 H Magnesium Level 3.0 H Test 11/11/18 05:42 Bedside Glucose 264 H Medications Medication Current Medications Morphine Sulfate (morphine) 2 mg Q4H PRN IV PAIN LEVEL 7-10 Last administered on 11/09/18at 12:57; Admin Dose 2 MG; Start 11/05/18 at 05:00 Midazolam HCl 50 ml @ 1 mls/hr TITRATE IV Last administered on 11/05/18at 09:48; Admin Dose 1 MLS/HR; Start 11/05/18 at 08:30 Thiamine HCl (Vitamin B1) 100 mg DAILY NGT Last administered on 11/10/18at 09:05; Admin Dose 100 MG; Start 11/05/18 at 12:30 Labetalol HCl (Normodyne) 100 mg BID NGT Last administered on 11/10/18at 20:40; Admin Dose 100 MG; Start 11/05/18 at 12:30 Nifedipine (Procardia) 20 mg Q6 NGT Last administered on 11/11/18at 05:45; Admin Dose 20 MG; Start 11/05/18 at 12:30 Ondansetron HCl (Zofran Inj) 4 mg Q4H PRN IV NAUSEA AND/OR VOMITING; Start 11/05/18 at 12:30 Albuterol (Proventil 0.083% (Neb)) 1.25 mg Q2H RESP THERAPY PRN HHN WHEEZING AND SOB; Start 11/05/18 at 12:30 Nicardipine HCl 25 mg/Sodium Chloride 250 ml @ 0 mls/hr TITRATE IV ; Start 11/05/18 at 16:00 Labetalol HCl (Labetalol) 10 mg Q4 PRN IV ELEVATED SYSTOLIC BP Last administered on 11/09/18at 08:17; Admin Dose 10 MG; Start 11/07/18 at 13:30 Famotidine (Pepcid) 20 mg DAILY NGT Last administered on 11/10/18at 09:05; Admin Dose 20 MG; Start 11/10/18 at 09:00 Fentanyl 100 ml @ 2.5 mls/hr TITRATE IV Last administered on 11/09/18at 17:06; Admin Dose 5 MLS/HR; Start 11/09/18 at 15:30 Acetaminophen (Tylenol Liquid) 650 mg Q6H PRN NGT MILD PAIN(1-3)OR ELEVATED TEMP Last administered on 11/10/18at 20:40; Admin Dose 650 MG; Start 11/09/18 at 23:00 Insulin Aspart (Novolog Insulin Pen) (Adult SC Insulin - Mild Algorithm)... Q6 SC Last administered on 11/11/18at 05:47; Admin Dose 4 UNIT; Start 11/10/18 at 12:00 Miscellaneous Information 1 ea NOTE XX ; Start 11/10/18 at 09:00 Glucose (Glutose) 15 gm Q15M PRN PO DECREASED GLUCOSE; Start 11/10/18 at 09:00 Glucose (Glutose) 22.5 gm Q15M PRN PO DECREASED GLUCOSE; Start 11/10/18 at 09:00 Dextrose (D50w Syringe) 25 ml Q15M PRN IV DECREASED GLUCOSE; Start 11/10/18 at 09:00 Dextrose (D50w Syringe) 50 ml Q15M PRN IV DECREASED GLUCOSE; Start 11/10/18 at 09:00 Glucagon (Glucagen) 1 mg Q15M PRN IM DECREASED GLUCOSE; Start 11/10/18 at 09:00 Glucose (Glutose) 15 gm Q15M PRN BUCCAL DECREASED GLUCOSE; Start 11/10/18 at 09:00 TOMY PRINGLE NP November 11, 2018 10:02
[2018-11-11] MEDS: LABETALOL 100 MG TAB NGT SCH (10:14)
[2018-11-11] MEDS: FAMOTIDINE 20 MG TAB NGT SCH (10:15)
[2018-11-11] MEDS: THIAMINE 100 MG TAB NGT SCH (10:15)
[2018-11-11] MEDS: morphine (DRIP) 100 MG/100 ML 100 ML IV SCH ×2 (13:17→21:37)
--- NOTE | 2018-11-11 13:35 | CONS ---
Assessment/Plan Assessment/Plan Hospital Course 58 yo M with hx of uncontrolled HTN, DM, substance abuse and other comorbidities who presents for evaluation of L sided weakness and vomiting. Noted on HCT to have a thalamic hemorrhage with extension into the ventricles. The etiology is likely to be a hypertensive hemorrhage in the context of illicit substance abuse Secondary hemorrhage following primary ischemic event is not yet excluded... CTA H/N is without evidence of underlying AVM or aneurysm. Repeat HCT is notable for worsening intraventricular and thalamic hemorrhage with transependymal flow P: Continued management per primary Will sign off. Please call with Qs Consultation Date/Type/Reason Admit Date/Time November 05, 2018 at 03:49 Type of Consult Neurology Requesting Provider: EDUARDO ASENCIO Date/Time of Note DATE: 11/11/18 TIME: 13:32 24 HR Interval Summary Free Text/Dictation Continues critical care. Terminal extubation to be done today. On morphine gtt. Exam Vital Signs Vitals Vital Signs Date Temp Pulse Resp B/P (MAP) Pulse Ox O2 O2 Flow FiO2 Time Delivery Rate 11/11/18 93 28 93 45 11:40 11/11/18 118/79 Mechanica 11:00 (92) l Ventilato r 11/11/18 100.2 08:00 Intake and Output 11/10/18 11/10/18 11/11/18 1515:00 23:00 07:00 IntakeIntake Total 665 ml 300 ml 270 ml OutputOutput Total 361 ml 593 ml 377 ml BalanceBalance 304 ml -293 ml -107 ml Exam PE: Gen Appearance: No Apparent Distress HEENT: Intubated; L frontal EVD Cardiovascular: Regular rate Abdomen: Soft Extremities: Dry NE: The patient was obtunded and nonverbal Cranial nerve examination was limited by mental status. R pupil was pinpoint; L pupil had a cataract. There was no afferent pupillary defect. Funduscopic examination was limited. Face was grossly symmetric, w/ present corneal and cough reflexes. Tone was normal. Muscle bulk was normal. I did not see fasciculations. The patient was spastic in his L arm; withdrew his lower extremities to noxious stimuli Coordination and gait testing was limited by mental status. Arm and leg reflexes were within normal limits and symmetric. Jaeger's sign was absent. Plantar responses were flexor. LUZ ALBARADO DATE PULLER November 11, 2018 13:35 CONY WOMACK November 12, 2018 15:08
--- NOTE | 2018-11-11 15:10 | CONS ---
Assessment/Plan Assessment/Plan Assessment/Plan (Daily) 1. acute hemorrhagic stroke , Intracerebral hemorrhage with obstructive hydrocephalus s/p ventriculostomy tube placement on 11/05/18 2. Acute on chronic renal failure 2/2 ATN 2. HTN emergency 4. H/o HTN 5. Possibel CKD III 2/2 HTN nephrosclerosis 6. H/o substance abuse, urine drug screen positive for Cocaine Plan: BUN/Cr continues to get worse , s/p family meeting today, Comofrt care and terminal extubation today, Morphine gtt started not a candidate for renal replacement therapy due to comorbities and ICH will sign off, call us if any questions Consultation Date/Type/Reason Admit Date/Time November 05, 2018 at 03:49 Initial Consult Date 11/05/18 Type of Consult NEPHROLOGY Requesting Provider: EDUARDO ASENCIO Date/Time of Note DATE: 11/11/18 TIME: 15:09 Exam/Review of Systems Exam Vitals Vital Signs Date Temp Pulse Resp B/P (MAP) Pulse Ox O2 O2 Flow FiO2 Time Delivery Rate 11/11/18 Nasal 2.0 13:45 Cannula 11/11/18 93 28 93 45 11:40 11/11/18 118/79 11:00 (92) 11/11/18 100.2 08:00 Intake and Output 11/10/18 11/10/18 11/11/18 1414:59 22:59 06:59 IntakeIntake Total 720 ml 300 ml 300 ml OutputOutput Total 332 ml 569 ml 455 ml BalanceBalance 388 ml -269 ml -155 ml Exam ENMT: intubated Neck: supple, non-tender Respiratory: congested cough, crackles/rales, diminished breath sounds Cardiovascular: regular rate and rhythm, nl pulses Gastrointestinal: soft, non-tender Musculoskeletal: muscle weakness, swelling Extremities: normal pulses Neurological: unresponsive, other (intubated on ventilator ) Skin: nl turgor Lymph: nl lymph nodes Results Result Diagram: 11/11/18 0434 11/11/18 0434 Results 24hrs Laboratory Tests Test 11/10/18 16:39 11/10/18 23:47 11/11/18 04:34 11/11/18 05:42 Bedside Glucose 209 216 264 H White Blood Count 6.9 # Red Blood Count 3.35 #L Hemoglobin 10.7 #L Hematocrit 32.2 #L Mean Corpuscular 96.1 Volume Mean Corpuscular 31.9 Hemoglobin Mean Corpuscular 33.2 Hemoglobin Concent Red Cell 13.2 Distribution Width Platelet Count 248 # Mean Platelet Volume 11.9 H Immature 0.400 Granulocytes % Neutrophils % Segmented 64 Neutrophils % (Manual) Band Neutrophils % 11 H (Manual) Lymphocytes % Lymphocytes % 6 L (Manual) Reactive Lymphocytes 2 H % (Manual) Monocytes % Monocytes % (Manual) 11 Eosinophils % Eosinophils % 3 (Manual) Basophils % Basophils % (Manual) 1 Metamyelocytes % 1 H (manual) Myelocytes % 1 H (Manual) Immature 0.030 Granulocytes # Neutrophils # Neutrophils # 4.5 (Manual) Band Neutrophils # 0.7 H Lymphocytes (Manual) 0.4 L Lymphocytes # Reactive Lymphocytes 0.1 H # Monocytes # Monocytes # (Manual) 0.7 Eosinophils # Basophils # Basophils # (Manual) 0.0 Metamyelocytes # 0.0 Myelocytes # 0.0 Platelet Estimate NORMAL Giant Platelets 2 H Polychromasia 3+ Poikilocytosis 3+ Anisocytosis 2+ Microcytosis 1+ Macrocytosis 2+ Sodium Level 143 Potassium Level 4.0 Chloride Level 113 H Carbon Dioxide Level 18 L Anion Gap 12 Blood Urea Nitrogen 98 H Creatinine 4.50 H Est Glomerular 14 L Filtrat Rate mL/min Glucose Level 229 H Calcium Level 8.7 Phosphorus Level 5.5 H Magnesium Level 3.0 H Medications Medication Current Medications Albuterol (Proventil 0.083% (Neb)) 1.25 mg Q2H RESP THERAPY PRN HHN WHEEZING AND SOB; Start 11/05/18 at 12:30 Acetaminophen (Tylenol Liquid) 650 mg Q6H PRN NGT MILD PAIN(1-3)OR ELEVATED TEMP Last administered on 11/10/18at 20:40; Admin Dose 650 MG; Start 11/09/18 at 23:00 Morphine Sulfate/ Sodium Chloride 100 ml @ 1 mls/hr TITRATE IV Last administered on 11/11/18at 13:17; Admin Dose 1 MLS/HR; Start 11/11/18 at 12:30 DAINA LYONS MD November 11, 2018 15:09
[2018-11-12] VITALS (18 sets, daily range): BP systolic 100–152; BP diastolic 66–98; PULSE 0–131; RESP 0–28
[2018-11-12] MEDS: morphine (DRIP) 100 MG/100 ML 100 ML IV SCH (06:52)
--- NOTE | 2018-11-12 10:58 | CONS ---
Assessment/Plan Assessment/Plan Assessment/Plan (Daily) 1. acute hemorrhagic stroke , Intracerebral hemorrhage with obstructive hydrocephalus s/p ventriculostomy tube placement on 11/05/18 2. Acute on chronic renal failure 2/2 ATN 2. HTN emergency 4. H/o HTN 5. Possibel CKD III 2/2 HTN nephrosclerosis 6. H/o substance abuse, urine drug screen positive for Cocaine Plan: BUN/Cr 98/4.5- terminally extubated, pt continues to have deteriorating renal funciton, Urine output dropping, pt is made DNR, currentl yon comfort care and m orphicarmen gtt not a candidate for renal replacement therapy due to comorbities and ICH will sign off for now, call us if any questions Consultation Date/Type/Reason Admit Date/Time November 05, 2018 at 03:49 Initial Consult Date 11/05/18 Type of Consult NEPHROLOGY Requesting Provider: EDUARDO ASENCIO Date/Time of Note DATE: 11/12/18 TIME: 10:58 Exam/Review of Systems Exam Vitals Vital Signs Date Temp Pulse Resp B/P (MAP) Pulse Ox O2 O2 Flow FiO2 Time Delivery Rate 11/12/18 124 08:00 11/12/18 15 145/88 Nasal 2.0 07:00 (107) Cannula 11/12/18 99.2 04:00 11/11/18 82 19:00 11/11/18 45 11:40 Intake and Output 11/11/18 11/11/18 11/12/18 1515:00 23:00 07:00 IntakeIntake Total 316.5 ml 80 ml 84 ml OutputOutput Total 247 ml 900 ml 580 ml BalanceBalance 69.5 ml -820 ml -496 ml Results Result Diagram: 11/11/18 0434 11/11/18 0434 Medications Medication Current Medications Albuterol (Proventil 0.083% (Neb)) 1.25 mg Q2H RESP THERAPY PRN HHN WHEEZING AND SOB; Start 11/05/18 at 12:30 Acetaminophen (Tylenol Liquid) 650 mg Q6H PRN NGT MILD PAIN(1-3)OR ELEVATED TEMP Last administered on 11/10/18at 20:40; Admin Dose 650 MG; Start 11/09/18 at 23:00 Morphine Sulfate/ Sodium Chloride 100 ml @ 1 mls/hr TITRATE IV Last administered on 11/12/18at 06:52; Admin Dose 12 MLS/HR; Start 11/11/18 at 12:30 DAINA LYONS MD November 12, 2018 10:58
--- NOTE | 2018-11-12 11:24 | CONS ---
Consult Date/Type/Reason Admit Date/Time November 05, 2018 at 03:49 Initial Consult Date 11/05/18 Type of Consult Pulmonary Requesting Provider: EDUARDO ASENCIO Date/Time of Note DATE: 11/12/18 TIME: 11:23 Subjective Patient remains unresponsive on facemask O2 post extubation appears comfortable on morphine drip. Objective Vital Signs Date Temp Pulse Resp B/P (MAP) Pulse Ox O2 O2 Flow FiO2 Time Delivery Rate 11/12/18 124 08:00 11/12/18 15 145/88 Nasal 2.0 07:00 (107) Cannula 11/12/18 99.2 04:00 11/11/18 82 19:00 11/11/18 45 11:40 Intake and Output 11/11/18 11/11/18 11/12/18 1515:00 23:00 07:00 IntakeIntake Total 316.5 ml 80 ml 84 ml OutputOutput Total 247 ml 900 ml 580 ml BalanceBalance 69.5 ml -820 ml -496 ml Exam HEENT: Dry mucous membranes minimally responsive. No respiratory distress. NECK: Supple, no JVD noted, no cervical adenopathy noted. LUNGS: Fair breath sounds bilaterally. CARDIOVASCULAR: S1, S2 normal. ABDOMEN: Soft, nontender, no megaly or masses noted. EXTREMITIES: No clubbing or cyanosis noted. NEUROLOGIC: Minimal purposeful movements noted. Vent Setting Ventilator Support Mode: AC, VC plus Fraction of Inspired Oxygen pe: 45 Positive End Expiratory Pressu: 5.0 Results/Medications Result Diagram: 11/11/18 0434 11/11/18 0434 Results 24 hrs Laboratory Tests Test 11/12/18 11:06 Lab Scanned Report REFERENCE LAB Medications Current Medications Albuterol (Proventil 0.083% (Neb)) 1.25 mg Q2H RESP THERAPY PRN HHN WHEEZING AND SOB; Start 11/05/18 at 12:30 Acetaminophen (Tylenol Liquid) 650 mg Q6H PRN NGT MILD PAIN(1-3)OR ELEVATED TEMP Last administered on 11/10/18at 20:40; Admin Dose 650 MG; Start 11/09/18 at 23:00 Morphine Sulfate/ Sodium Chloride 100 ml @ 1 mls/hr TITRATE IV Last administered on 11/12/18at 06:52; Admin Dose 12 MLS/HR; Start 11/11/18 at 12:30 Assessment/Plan Hospital Course (Demo Recall) IMP: 1. Acute hypoxemic respiratory failure/Vent Dependence 2. Intracranial bleed, status post ventriculostomy. 3. Hypertensive crisis. 4. History of prior cerebrovascular accident with left-sided weakness. 5. Cocaine positive in the urine screen. 6. Encephalopathy. 7. Acute on chronic renal failure RECS: 1. Continue current supportive measures Transfer to [facility] when available. AMBROSIO YAN MD, [facility] November 12, 2018 11:24
--- NOTE | 2018-11-12 11:37 | CONS ---
Assessment/Plan Assessment/Plan Assessment/Plan (Daily) This absent last seen patient he has been placed on comfort measures and is on morphine drip. Spoke to patient's 2 daughters for supportive care. They are very comfortable with her decision to change to comfort end-of-life care. Consultation Date/Type/Reason Admit Date/Time November 05, 2018 at 03:49 Initial Consult Date 11/05/18 Requesting Provider: EDUARDO ASENCIO Date/Time of Note DATE: 11/12/18 TIME: 11:36 24 HR Interval Summary Free Text/Dictation Status post massive intracerebral hemorrhage Shunt has been placed by neurosurgery Presumably hypertensive crisis Presumably secondary to illicit drug use however patient's drug screen is negative however he has a history of cocaine and other illicit drug use Drug screen may be unreliable if patient was smoking or shooting drugs as compared to snorting. Half-life of cocaine and crystal methamphetamines ap proximately 1 week metabolites of snorting crystal methamphetamine may be longer. Exam/Review of Systems Exam Vitals Vital Signs Date Temp Pulse Resp B/P (MAP) Pulse Ox O2 O2 Flow FiO2 Time Delivery Rate 11/12/18 124 08:00 11/12/18 15 145/88 Nasal 2.0 07:00 (107) Cannula 11/12/18 99.2 04:00 11/11/18 82 19:00 11/11/18 45 11:40 Intake and Output 11/11/18 11/11/18 11/12/18 1515:00 23:00 07:00 IntakeIntake Total 316.5 ml 80 ml 84 ml OutputOutput Total 247 ml 900 ml 580 ml BalanceBalance 69.5 ml -820 ml -496 ml Results Result Diagram: 11/11/18 0434 11/11/18 0434 Results 24hrs Laboratory Tests Test 11/12/18 11:06 Lab Scanned Report REFERENCE LAB Medications Medication Current Medications Albuterol (Proventil 0.083% (Neb)) 1.25 mg Q2H RESP THERAPY PRN HHN WHEEZING AND SOB; Start 11/05/18 at 12:30 Acetaminophen (Tylenol Liquid) 650 mg Q6H PRN NGT MILD PAIN(1-3)OR ELEVATED TEMP Last administered on 11/10/18at 20:40; Admin Dose 650 MG; Start 11/09/18 at 23:00 Morphine Sulfate/ Sodium Chloride 100 ml @ 1 mls/hr TITRATE IV Last administered on 11/12/18at 06:52; Admin Dose 12 MLS/HR; Start 11/11/18 at 12:30 SHIRLEY WATERS November 12, 2018 11:37
--- NOTE | 2018-11-12 16:42 | EN ---
Date/Time of Note Date/Time of Note DATE: 11/12/18 TIME: 16:42 Event Note Medicine Medicine Event Note Expiration Note The patient was seen and examined. EKG shows asystole. Bilateral pupils are fixed and dilated without any reaction. No audible breath sounds. No audible heart sounds. No spontaneous movements. No reaction to painful stimuli. No pulses palpable. No clinical evidence of life. The patient was declared on 11/12/2018 at 1640. TOMY PRINGLE NP November 12, 2018 16:42
--- NOTE | 2018-11-12 16:45 | DES ---
Date/Time of Note Date/Time of Note DATE: 11/12/18 TIME: 16:44 Discharge/ Summary Admission/Discharge Info Admit Date/Time November 05, 2018 at 03:49 Date/Time November 12, 2018 1640. Final Diagnosis 1. Hypertensive intracerebral hemorrhage; intraventricular hemorrhage; obstructive hydrocephalus; brain herniation. Status post left frontal ventriculostomy placement on 11/05/2018. 2. Hypertensive emergency. 3. Acute on chronic kidney disease. 4. Acute hypoxic respiratory failure. 5. Normocytic, normochromic anemia. 6. Diabetes mellitus. Latest hemoglobin A1c 6.8. 7. BPH. 8. Substance abuse. Preliminary Cause of 1. Cardiopulmonary arrest (seconds). 2. Acute respiratory failure secondary to intracranial hemorrhage and uncal elian iation (hours). Admit History This is a 58-year-old male with comorbidities including hypertension, CVA with left-sided deficit, chronic kidney disease, and substance abuse who was brought in to the emergency room by family members because of nausea, vomiting and weakness with a brain CT revealing acute intraparenchymal hemorrhage centered in the right thalamus with intraventricular extension, who was admitted to inpatient setting for further treatment and evaluation. Hospital Course Neurosurgery consult was obtained. The patient underwent a left frontal ventriculostomy on 11/05/2018. The patient remained on ventilator for airway protection and underlying acute respiratory failure. The patient had a very poor prognosis. This was explained by the neurosurgeon as well as the physicians involved in the patient's care. The patient was maintained on antihypertensives for his underlying hypertensive emergency. The patient had a hypertensive intracerebral hemorrhage because of uncontrolled blood pressure. The patient was noticed to have worsening renal function. The patient probably had underlying chronic kidney disease. The patient had evidence of acute on chronic kidney injury. The patient was being followed by nephrology. The patient also had underlying normocytic normochromic anemia. The patient's H&H remained stable and the patient did not require any blood transfusion. The patient has a history of diabetes mellitus. The patient's hemoglobin A1c was found to be 6.8. The patient was started on sliding scale insulin once the patient was started on tube feedings. The patient was made a DNR by the patient's family and the patient was made comfort care on 11/11/2018. The patient was compassionately extubated on 11/11/2018. On 11/12/2018, the patient was noticed to have asystole on clinical cytopathologist. The patient was seen and examined. EKG showed asystole. Bilateral pupils were fixed and dilated without any reaction. There was no audible breath sounds. No audible heart sounds. No spontaneous movements. No reaction to painful stimuli. No pulses palpable. No clinical evidence of life. The patient was declared on 11/12/2018 at 1640. The patient's family was given enough time to spend with the patient during the final hours of the patient's life. The patient was seen in collaboration with Dr. Byrd. Pending Labs/Cultures Laboratory Tests Test 11/12/18 11:06 Lab Scanned Report [facility]FER[facility] LAB [id number] Autopsy Request Indications Yes. Positive cocaine in the system. TOMY PRINGLE NP November 12, 2018 16:45
== END 2018-11-12 16:40 | disposition expired | DRG 23 ==
LOC: E/R 02:31 → ICU 03:49 → MERGE 03:49
PROVIDERS: ADMIT Internal Medicine; ATTEND Internal Medicine
PROC: 009630Z Drainage of Cerebral Ventricle with Drainage Device, Percutaneous Approach (ICD-10-PCS; principal; 2018-11-05)
PROC: 0BH17EZ Insertion of Endotracheal Airway into Trachea, Via Natural or Artificial Opening (ICD-10-PCS; 2018-11-05)
PROC: 5A1955Z Respiratory Ventilation, Greater than 96 Consecutive Hours (ICD-10-PCS; 2018-11-05)
DX: I61.5 Nontraumatic intracerebral hemorrhage, intraventricular (principal); G93.5 Compression of brain; N17.0 Acute kidney failure with tubular necrosis; J96.01 Acute respiratory failure with hypoxia; G93.40 Encephalopathy, unspecified; G91.1 Obstructive hydrocephalus; G81.94 Hemiplegia, unspecified affecting left nondominant side; I16.1 Hypertensive emergency; D64.9 Anemia, unspecified; E11.22 Type 2 diabetes mellitus with diabetic chronic kidney disease; I12.9 Hypertensive chronic kidney disease with stage 1 through stage 4 chronic kidney disease, or unspecified chronic kidney disease; E23.7 Disorder of pituitary gland, unspecified; E78.5 Hyperlipidemia, unspecified; F14.10 Cocaine abuse, uncomplicated; F17.200 Nicotine dependence, unspecified, uncomplicated; N18.3 Chronic kidney disease, stage 3 (moderate); N40.0 Benign prostatic hyperplasia without lower urinary tract symptoms; R11.10 Vomiting, unspecified; R62.7 Adult failure to thrive; Z68.22 Body mass index [BMI] 22.0-22.9, adult; Z66 Do not resuscitate; Z91.14 Patient's other noncompliance with medication regimen; Z86.73 Personal history of transient ischemic attack (TIA), and cerebral infarction without residual deficits; Z79.84 Long term (current) use of oral hypoglycemic drugs
CPT/HCPCS: 31500; 36415; 36600; 70450; 70496; 70498; 71045; 76775; 80048; 80053; 80061; 80307; 81001; 81003; 82550; 82553; 82570; 82803; 82962; 83036; 83735; 84100; 84300; 84443; 84484; 84560; 85025; 85610; 85730; 87081; 87086; 89190; 93005; 94002; 94003; 94770; J0690; J1815; J1940; J1953; J2250; J2270; J2997; J3010; J3480; J7030; J7040; J7050; Q9967